=== PATIENT | female | born 1935 | race Caucasian/White ===

== ENCOUNTER 2016-10-02 20:40 | Inpatient (IN) | payer OTHER ==
[2016-10-02 20:48] VITALS: BMI 27.4
[2016-10-02] MEDS ORDERED: PIPERACILLIN/TAZOB 3.375 GM 3.375 GM in DEXTROSE 5%-WATER - 50 ML IVPB ONE (22:12)
[2016-10-02] MEDS ORDERED: VANCOMYCIN 1,000 MG in DEXTROSE 5%-WATER - 250 ML IVPB ONE (22:16)
--- NOTE | 2016-10-02 22:18 | PDOC ---
History of Present Illness - General History Source: Patient Exam Limitations: No Limitations - History of Present Illness Initial Comments: 10/02/16 22:21 The patient is a 80 year old female with a significant past medical history of diabetes and hypertension who presents to the ED with complaint of right toe injury for 2 weeks. The patient reports she hit her right second toe against the bathroom door 2 weeks ago. Patient reports edema, redness, and blackened- skin at the right second toe. Denies toe pain or loss in sensation. Patient also reports an ongoing rash on the left side of the back of her head. Patient reports thickening of skin associated with the rash. Denies fever or chills. Denies chest pain or shortness of breath. Denies focal numbness, weakness, or tingling. Denies any other symptoms. <Tj Alex - Last Filed: 10/02/16 22:21> <Alison Ray - Last Filed: 10/03/16 01:58> - General Chief Complaint: Injury Stated Complaint: RIGHT FOOT INJURY Time Seen by Provider: 10/02/16 21:22 Past History <Tj Alex - Last Filed: 10/02/16 22:21> - Past Medical History Diabetes: Yes (IDDM) HTN: Yes Suicide Attempt (Hx): No - Psycho/Social/Smoking Cessation Hx Anxiety: No Suicidal Ideation: No Smoking History: Never smoked Hx Alcohol Use: No Drug/Substance Use Hx: No Substance Use Type: None <Alison Ray - Last Filed: 10/03/16 01:58> - Past Medical History Allergies/Adverse Reactions: Allergies Allergy/AdvReac Type Severity Reaction Status Date / Time No Known Allergies Allergy Verified 10/02/16 20:47 Home Medications: Ambulatory Orders Atenolol 0 PO DAILY 10/03/16 Hydrochlorothiazide 0 PO DAILY 10/03/16 Insulin (LOG) Aspart [NovoLOG -] 0 unit SQ DAILY 10/03/16 Insulin Glargine,Hum.rec.anlog [Lantus (nf)] 0 units SQ HS 10/03/16 Norvasc - PO DAILY 10/03/16 Review of Systems - Review of Systems Able to Perform ROS?: Yes Comments:: 10/02/16 22:21 CONSTITUTIONAL: Absent: fever, chills, diaphoresis, generalized weakness, malaise, loss of appetite HEENT: Absent: rhinorrhea, nasal congestion, throat pain, throat swelling, difficulty swallowing, mouth swelling, ear pain, eye pain, visual Changes CARDIOVASCULAR: Absent: chest pain, syncope, palpitations, irregular heart rate, lightheadedness , peripheral edema RESPIRATORY: Absent: cough, shortness of breath, dyspnea with exertion, orthopnea, wheezing, stridor, hemoptysis GASTROINTESTINAL: Absent: abdominal pain, abdominal distension, nausea, vomiting, diarrhea, constipation, melena, hematochezia GENITOURINARY: Absent: dysuria, frequency, urgency, hesitancy, hematuria, flank pain, genital pain MUSCULOSKELETAL: + right toe injury SKIN: + rash Absent:, itching, pallor HEMATOLOGIC/IMMUNOLOGIC: Absent: easy bleeding, easy bruising, lymphadenopathy, frequent infections ENDOCRINE: Absent: unexplained weight gain, unexplained weight loss, heat intolerance, cold intolerance NEUROLOGIC: Absent: headache, focal weakness or paresthesias, dizziness, unsteady gait, seizure, mental status changes, bladder or bowel incontinence PSYCHIATRIC: Absent: anxiety, depression, suicidal or homicidal ideation, hallucinations. All Other Systems: Reviewed and Negative <Tj Alex - Last Filed: 10/02/16 22:21> *Physical Exam - Vital Signs Last Vital Signs Temp Pulse Resp BP Pulse Ox 97.7 F 67 18 136/71 99 10/02/16 20:43 10/02/16 20:43 10/02/16 20:43 10/02/16 20:43 10/02/16 20:43 - Physical Exam Comments: 10/02/16 22:21 GENERAL: Well developed, well nourished. Awake and alert. No acute distress. HEENT: Normocephalic, atraumatic. PERRLA, EOMI. No conjunctival pallor. Sclera are non- icteric. Moist mucous membranes. Oropharynx is clear. NECK: Supple. Full ROM. No JVD. Carotid pulses 2+ and symmetric, without bruits. No thyromegaly. NCo lymphadenopathy. CARDIOVASCULAR: Regular rate and rhythm. No murmurs, rubs, or gallops. Distal pulses are 2+ and symmetric. PULMONARY: No evidence of respiratory distress. Lungs clear to auscultation bilaterally. No wheezing, rales or rhonchi. ABDOMINAL: Soft. Non-tender. Non-distended. No rebound or guarding. No organomegaly. Normoactive bowel sounds. MUSCULOSKELETAL Normal range of motion at all joints. No bony deformities or tenderness. No CVA tenderness. EXTREMITIES: + right second toe diabetic foot. No cyanosis. No clubbing. No calf tenderness. SKIN: + Left postauricular area, nape of neck, back of ear fungal rash. Warm and dry. Normal capillary refill. No jaundice. NEUROLOGICAL: Alert, awake, appropriate. Cranial nerves 2-12 intact. No deficits to light touch and temperature in face, upper extremities and lower extremities. No motor deficits in the in face, upper extremities and lower extremities. Normoreflexic in the upper and lower extremities. Normal speech. Toes are down- going bilaterally. Gait is normal without ataxia. PSYCHIATRIC: Cooperative. Good eye contact. Appropriate mood and affect. <Tj Alex - Last Filed: 10/02/16 22:21> - Vital Signs Last Vital Signs Temp Pulse Resp BP Pulse Ox 97.7 F 67 18 136/71 99 10/02/16 20:43 10/02/16 20:43 10/02/16 20:43 10/02/16 20:43 10/02/16 20:43 <Alison Ray - Last Filed: 10/03/16 01:58> ED Treatment Course - LABORATORY CBC & Chemistry Diagram: 10/02/16 23:29 10/02/16 23:29 <Alison Ray - Last Filed: 10/03/16 01:58> Medical Decision Making - Medical Decision Making 10/02/16 22:45 Pt comes with DM and diabetic toe infection on the right 2nd toe. Pt also has fungal looking rash behind the left ear and left neck area that has been ongoing for the past year. Pt doesn't recall going to a salon or a nail parlor in the past year. She is not sure where she could have picked up the infection. The post-auricular area and neck appear lichinified/thickened pinkish skin with no hair growth in the area of rash. The area is pruritic, as pt is itching it regularly. It is possible that after pt banged her right toe en route to the bathroom 2 weeks ago, she scratched her neck/ear area and then manipulated her foot. She may have a fungal infection of the toe. This needs to be explored while she is admitted. Pt has a fungal toenail infection of her 1st and 2nd toes on the rigt foot. Pt will have basic labs and CRP and sed rate done. I will treat with zosyn nd vanco and oral ketoconazole. Dr. Vogel is aware that the patient is being admitted. I will admit the paient to Dr. Badillo, who is covering today. 10/03/16 01:57 Pt was given abx. Her blood sugar is elevated and she will be treated with NSS IV, as her BUN/Cr are sightly elevated and she will be given subcutaneous insulin <Alison Ray - Last Filed: 10/03/16 01:58> *DC/Admit/Observation/Transfer - Attestations Scribe Attestion: 10/02/16 22:21 Documentation prepared by Tj Alex, acting as medical technologist prn for Alison Ray MD <Tj Alex - Last Filed: 10/02/16 22:21> - Discharge Dispostion Admit: Yes <Alison Ray - Last Filed: 10/03/16 01:58> Diagnosis at time of Disposition: Diabetic foot infection, Toe osteomyelitis, right, Fungal infection of the scalp - Referrals
[2016-10-02] MEDS ORDERED: VANCOMYCIN 1 GRAM (PRE-DOCKED) 250 ML IVPB ONE (23:29)
[2016-10-03 00:01] LABS: BASOPHIL 0.7 % (0-2.0); MCH 28.8 pg (25.7-33.7); MCHC 32.5 g/dl (32.0-36.0); MEAN CELL VOLUME 88.8 fl (80-96); MEAN PLT VOLUME 9.3 fl (7.5-11.1); NEUTROPHILS 57.5 % (42.8-82.8); PLATELET COUNT 169 K/MM3 (134-434); RDW 13.6 % (11.6-15.6); WHITE BLOOD COUNT 6.6 K/mm3 (4.0-10.0)
[2016-10-03 00:22] LABS: ALBUMIN 3.3 g/dl (3.4-5.0); BILIRUBIN,TOTAL 0.4 mg/dL (0.2-1.0); CALCIUM 9.2 mg/dL (8.5-10.1); COCKROFT - GAULT 32.1215; CREATININE 1.5 mg/dL (0.55-1.02); TOT PROT 7.5 g/dl (6.4-8.2)
[2016-10-03] MEDS ORDERED: SODIUM CHLORIDE 0.9% 500 ML INFUS.BAG IV ONE (00:43)
[2016-10-03] MEDS ORDERED: INSULIN REGULAR HUMAN 100 UNITS/ML *VIAL SQ ONE (00:46)
[2016-10-03] MEDS ORDERED: PIPERACILLIN/TAZOB 3.375 GM 50 ML IVPB ONE (01:13)
[2016-10-03] MEDS ORDERED: ACETAMINOPHEN 325 MG TABLET (FP) PO PRN (07:36)
[2016-10-03] MEDS ORDERED: BACITRACIN 30 GM TUBE TOPICAL OINTMENT TP SCH (10:00)
[2016-10-03] MEDS: ASPIRIN COATED 81 MG TABLET.EC PO SCH (11:11)
[2016-10-03] MEDS: HEPARIN NA (PORCINE) 5,000 UNITS/ML 1ML VIAL SQ SCH ×2 (11:11→22:21)
[2016-10-03] MEDS: ATENOLOL 25 MG TABLET (FP) PO SCH (11:12)
[2016-10-03] MEDS: amLODIPine BESYLATE 2.5 MG TABLET (FP) PO SCH (11:12)
[2016-10-03] MEDS ORDERED: ATENOLOL 25 MG TABLET (FP) ONE (11:13)
[2016-10-03] MEDS ORDERED: amLODIPine BESYLATE 5 MG TABLET (FP) ONE (11:13)
[2016-10-03] MEDS ORDERED: HEPARIN NA (PORCINE) 5,000 UNITS/ML 1ML VIAL ONE (11:14)
[2016-10-03] MEDS ORDERED: ASPIRIN COATED 81 MG TABLET.EC ONE (11:14)
--- NOTE | 2016-10-03 11:51 | HP ---
Admitting History and Physical - Primary Care Physician PCP: Natalee Jo - Admission Chief Complaint: RIGHT TOE ULCER WITH CELLULITIS History of Present Illness: The patient is a 80 year old female with a significant past medical history of diabetes and hypertension who presents to the ED with complaint of right toe injury for 2 weeks. The patient reports she hit her right second toe against the bathroom door 2 weeks ago. Patient reports edema, redness, and blackened- skin at the right second toe. Denies toe pain or loss in sensation. Patient also reports an ongoing rash on the left side of the back of her head. Patient reports thickening of skin associated with the rash. Denies fever or chills. Denies chest pain or shortness of breath. Denies focal numbness, weakness, or tingling. Denies any other symptoms. History Source: Patient, Medical Record, Transfer Record Limitations to Obtaining History: Language Barrier - Smoking History Smoking history: Never smoked - Alcohol/Substance Use Hx Alcohol Use: No Home Medications - Allergies Allergies/Adverse Reactions: Allergies Allergy/AdvReac Type Severity Reaction Status Date / Time No Known Allergies Allergy Verified 10/02/16 20:47 - Home Medications Home Medications: Ambulatory Orders Atenolol 0 PO DAILY 10/03/16 Hydrochlorothiazide 0 PO DAILY 10/03/16 Insulin (LOG) Aspart [NovoLOG -] 0 unit SQ DAILY 10/03/16 Insulin Glargine,Hum.rec.anlog [Lantus (nf)] 0 units SQ HS 10/03/16 Norvasc - PO DAILY 10/03/16 Review of Systems - Review of Systems Constitutional: reports: No Symptoms Eyes: reports: No Symptoms HENT: reports: No Symptoms Neck: reports: No Symptoms Cardiovascular: reports: No Symptoms Respiratory: reports: No Symptoms Gastrointestinal: reports: No Symptoms Genitourinary: reports: No Symptoms Breasts: reports: No Symptoms Reported Musculoskeletal: reports: Extremity Pain Integumentary: reports: Blister, Erythema, Wound Neurological: reports: Pre-Existing Deficit Endocrine: reports: No Symptoms Hematology/Lymphatic: reports: No Symptoms Psychiatric: reports: No Symptoms Physical Examination Vital Signs: Vital Signs Temperature 97.8 F 10/03/16 03:40 Pulse Rate 60 10/03/16 03:40 Respiratory Rate 16 10/03/16 03:40 Blood Pressure 143/57 10/03/16 03:40 O2 Sat by Pulse Oximetry (%) 97 10/03/16 03:40 Constitutional: Yes: Mild Distress Eyes: Yes: WNL HENT: Yes: WNL Neck: Yes: WNL Cardiovascular: Yes: WNL Respiratory: Yes: WNL Gastrointestinal: Yes: WNL Musculoskeletal: Yes: Muscle Weakness Extremities: Yes: WNL Edema: No Peripheral Pulses WNL: Yes Integumentary: Yes: Erythema, Pressure Ulcer, Skin Tear, Venous Stasis Changes Wound/Incision: Yes: Open to air Neurological: Yes: Pre-Existing Deficit ...Motor Strength: LLE, RLE Psychiatric: Yes: WNL Problem List - Problems (1) Diabetic foot infection Code(s): E11.69 - TYPE 2 DIABETES MELLITUS WITH OTHER SPECIFIED COMPLICATION L08.9 - LOCAL INFECTION OF THE SKIN AND SUBCUTANEOUS TISSUE, UNSP (2) Diabetes type 2, controlled Code(s): E11.9 - TYPE 2 DIABETES MELLITUS WITHOUT COMPLICATIONS Qualifiers: Diabetes mellitus complication status: with skin complications Diabetes mellitus complication detail: with foot ulcer Assessment/Plan IV ABX ID AND SURGERY EVAL DM CONTROL ADA
[2016-10-03] MEDS ORDERED: HEMOQUE TEST 1 EACH EACH ONE (13:06)
[2016-10-03] MEDS: INSULIN SLIDING SCALE (NOVOLOG) 1 VIAL SQ SCH ×3 (14:48→22:23)
--- NOTE | 2016-10-03 14:52 | PN ---
Progress Note (short form) - Note Progress Note: ID consult dictated imp/reccd 80 year old female with DM for last 15 years, admitted with swollen second toe she banged it about two weeks ago, the toenail fell off she has been using peroxide to treat the toe no fevers or chills no recent admissions she has good pulses in the feet cellulitis of the second toe - xray no osteo suggest podiatry evaluation iv cefazolin f/u esr/crp Problem List - Problems (1) Diabetic foot infection Code(s): E11.69 - TYPE 2 DIABETES MELLITUS WITH OTHER SPECIFIED COMPLICATION L08.9 - LOCAL INFECTION OF THE SKIN AND SUBCUTANEOUS TISSUE, UNSP (2) Renal insufficiency Code(s): N28.9 - DISORDER OF KIDNEY AND URETER, UNSPECIFIED
[2016-10-03] MEDS ORDERED: CEFAZOLIN 2 GM in DEXTROSE 5%-WATER - 50 ML IVPB SCH (15:00)
--- NOTE | 2016-10-03 15:33 | EKG ---
Test Reason : Blood Pressure : / mmHG Vent. Rate : 061 BPM Atrial Rate : 061 BPM P-R Int : 184 ms QRS Dur : 104 ms QT Int : 428 ms P-R-T Axes : 056 -39 039 degrees QTc Int : 430 ms NORMAL SINUS RHYTHM LEFT AXIS DEVIATION INFERIOR INFARCT , AGE UNDETERMINED ANTEROSEPTAL INFARCT , AGE UNDETERMINED ABNORMAL ECG NO PREVIOUS ECGS AVAILABLE CLINICAL CORRELATION IS RECOMMENDED BASELINE ARTIFACT Confirmed by CASH NOVAK, CARLOS ([id number]) on 10/03/2016 3:33:19 PM Referred By: Confirmed By:CARLOS CASTREJON MD
[2016-10-03] MEDS: BACITRACIN 30 GM TUBE TOPICAL OINTMENT TP SCH (16:25)
--- NOTE | 2016-10-03 16:41 | CONS ---
DATE OF CONSULTATION: DATE OF DICTATION: 10/03/2016 REQUESTED BY: Aram Badillo MD This is an 81-year-old woman with a history of diabetes for the last 15 years. Two weeks ago, she thinks she stubbed her toe in the bathroom when she slipped and fell. Subsequently, the toenail fell off. She was treated the area with peroxide. She has not seen a doctor for this. Yesterday, she went to see her sister. Her niece looked at the foot. The toe was swollen and she brought her to the emergency room. She has no fevers or chills. She, otherwise, feels well. She has no chest pain, she has no shortness of breath. She has no known drug allergies. MEDICATIONS AN OUTPATIENT: Atenolol, hydrochlorothiazide, insulin, and Norvasc. PAST MEDICAL HISTORY: Hypertension and diabetes. There is no history of coronary artery disease. SURGICAL HISTORY: Right total knee repair done a year ago as well as she has had several operations on her ovaries in the past. FAMILY HISTORY: Noncontributory. SOCIAL HISTORY: She lives alone. She had 1 child who has predeceased her. REVIEW OF SYSTEMS: Negative for chest pain, abdominal pain, nausea, vomiting, diarrhea, or dysuria. PHYSICAL EXAMINATION: Vital Signs: Temperature is 97.8, pulse is 75, blood pressure 145/80, respiratory rate is 20. She is saturating 100% on room air. HEENT: She is normocephalic. Her eyes are anicteric. Neck: Supple. Lungs: Clear to auscultation. Heart: Regular rate and rhythm. Abdomen: Soft, nontender. Extremities: She has 2+ bilateral dorsalis pedis pulses of the right foot, 2nd toe. She has some diffuse erythema of the toe with some crusting at the site of the toenail. LABORATORIES: White count of 6.6, hemoglobin 13.7, platelets are 169. BUN is 44, creatinine 1.5, glucose of 311. SUMMARY: 1. This is an 80-year-old woman with diabetes with a cellulitis of the 2nd toe of her right foot. I would recommend Podiatry consultation, as she appears to have good pulses in her feet and her feet are warm. I would treat her at this time with cefazolin. Plain x-rays negative for osteomyelitis. If she fails to improve, would consider MRI. Would follow up sedimentation rate and CRP. Would await evaluation by Podiatry. 2. Renal insufficiency, most likely secondary to diabetes. We will adjust her antibiotics accordingly. RADHAMES HERMAN M.D. [id number]
--- NOTE | 2016-10-03 20:56 | CONSULT ---
Consult - Alcohol/Substance Use Hx Alcohol Use: No - Smoking History Smoking history: Never smoked Home Medications - Allergies Allergies/Adverse Reactions: Allergies Allergy/AdvReac Type Severity Reaction Status Date / Time No Known Allergies Allergy Verified 10/02/16 20:47 - Home Medications Home Medications: Ambulatory Orders Atenolol 0 PO DAILY 10/03/16 Hydrochlorothiazide 0 PO DAILY 10/03/16 Insulin (LOG) Aspart [NovoLOG -] 0 unit SQ DAILY 10/03/16 Insulin Glargine,Hum.rec.anlog [Lantus (nf)] 0 units SQ HS 10/03/16 Norvasc - PO DAILY 10/03/16 Physical Exam Vital Signs: Vital Signs Temperature 98.4 F 10/03/16 14:54 Pulse Rate 68 10/03/16 14:54 Respiratory Rate 20 10/03/16 14:54 Blood Pressure 127/64 10/03/16 14:54 O2 Sat by Pulse Oximetry (%) 100 10/03/16 14:54 Assessment/Plan Vascular Surgery The patient is a 80 year old female with a significant past medical history of diabetes and hypertension who presents to the ED with complaint of right toe injury for 2 weeks. The patient reports she hit her right second toe against the bathroom door 2 weeks ago. Patient reports edema, redness, and blackened- skin at the right second toe. Denies toe pain or loss in sensation. Patient also reports an ongoing rash on the left side of the back of her head. Patient reports thickening of skin associated with the rash. Denies fever or chills. Denies chest pain or shortness of breath. Denies focal numbness, weakness, or tingling. Denies any other symptoms. PE Head - NC/AT Lung - cTA Heart - RRR abd - soft,nt,nd ext - right second toe erythema. Not painful to touch. Injury to toe nail. Palpable DP and PT pulses. warm to touch. A/P S/P fall in bathroom and injury to right second toe. circulation is intact with good pulses. Bacitracin to toe daily Harinder Garner DO
[2016-10-03] MEDS ORDERED: KETOCONAZOLE 200 MG TABLET PO ONE (22:13)
[2016-10-03] MEDS: CEFAZOLIN 2 GM in DEXTROSE 5%-WATER - 50 ML IVPB SCH (22:21)
[2016-10-03] MEDS: INSULIN DETEMIR 100 UNITS/ML MDV SQ SCH (22:22)
--- NOTE | 2016-10-03 22:31 | CONSULT ---
Consult Consult Specialty:: ENDOCRINE Referred by:: DR.RABADI RODGERS Reason for Consultation:: DIABETES MELLITUS - History of Present Illness Chief Complaint: HIGH SUGAR LEVELS History of Present Illness: 80 year old female with a significant past medical history of diabetes and hypertension who presents to the ED with complaint of right toe injury for 2 weeks. The patient reports she hit her right second toe against the bathroom door 2 weeks ago. Patient reports edema, redness, and blackened-skin at the right second toe. Denies toe pain or loss in sensation. Patient also reports higher blood sugars,denies cp,nausea or vomiting - History Source History Provided By: Patient - Alcohol/Substance Use Hx Alcohol Use: No - Smoking History Smoking history: Never smoked Home Medications - Allergies Allergies/Adverse Reactions: Allergies Allergy/AdvReac Type Severity Reaction Status Date / Time No Known Allergies Allergy Verified 10/02/16 20:47 - Home Medications Home Medications: Ambulatory Orders Atenolol 0 PO DAILY 10/03/16 Hydrochlorothiazide 0 PO DAILY 10/03/16 Insulin (LOG) Aspart [NovoLOG -] 0 unit SQ DAILY 10/03/16 Insulin Glargine,Hum.rec.anlog [Lantus (nf)] 0 units SQ HS 10/03/16 Norvasc - PO DAILY 10/03/16 Review of Systems - Review of Systems Constitutional: reports: Lethargy, Weakness Eyes: reports: No Symptoms HENT: reports: No Symptoms Neck: reports: No Symptoms Cardiovascular: reports: No Symptoms Respiratory: reports: SOB on Exertion Gastrointestinal: reports: Constipation Genitourinary: reports: No Symptoms Breasts: reports: No Symptoms Reported Musculoskeletal: reports: No Symptoms, Muscle Pain, Muscle Cramps, Muscle Weakness Endocrine: reports: Unexplained Weight Loss Physical Exam Vital Signs: Vital Signs Temperature 98.4 F 10/03/16 14:54 Pulse Rate 68 10/03/16 14:54 Respiratory Rate 20 10/03/16 14:54 Blood Pressure 127/64 10/03/16 14:54 O2 Sat by Pulse Oximetry (%) 100 10/03/16 14:54 Constitutional: Yes: Anxious Eyes: Yes: EOM Intact HENT: Yes: Normocephalic Neck: Yes: Trachea Midline Cardiovascular: Yes: Regular Rate and Rhythm Respiratory: Yes: CTA Bilaterally Gastrointestinal: Yes: Normal Bowel Sounds ...Rectal Exam: Yes: Deferred Renal/: Yes: WNL Breast(s): Yes: WNL Musculoskeletal: Yes: Joint Swelling, Muscle Pain Extremities: Yes: WNL Edema: No Peripheral Pulses WNL: Yes Integumentary: Yes: Pressure Ulcer, Onychomycosis Wound/Incision: Yes: Dressing Dry and Intact, Dressing Removed Neurological: Yes: Alert, Oriented Problem List - Problems (1) Diabetes type 2, controlled Code(s): E11.9 - TYPE 2 DIABETES MELLITUS WITHOUT COMPLICATIONS Qualifiers: Diabetes mellitus complication status: with skin complications (2) Fungal infection of the scalp Code(s): 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 (3) Renal insufficiency Code(s): N28.9 - DISORDER OF KIDNEY AND URETER, UNSPECIFIED (4) Toe osteomyelitis, right Code(s): M86.9 - OSTEOMYELITIS, UNSPECIFIED (5) Type 2 diabetes mellitus with other diabetic neurological complication Code(s): E11.49 - TYPE 2 DIABETES W OTH DIABETIC NEUROLOGICAL COMPLICATION Assessment/Plan Current Active Problems Diabetes type 2, controlled (Acute) Diabetic foot infection (Acute) Fungal infection of the scalp (Acute) Renal insufficiency (Acute) Toe osteomyelitis, right (Acute) Abnormal Lab Results 10/02/16 10/02/16 10/02/16 23:29 23:29 23:29 Monocytes % 10.5 H ESR 53 H Chloride 97 L BUN 44 H D Creatinine 1.5 H D Random Glucose 311 H* D Albumin 3.3 L Laboratory Results - last 24 hr 10/02/16 10/02/16 10/02/16 23:29 23:29 23:29 WBC 6.6 RBC 4.75 Hgb 13.7 Hct 42.2 MCV 88.8 MCHC 32.5 RDW 13.6 Plt Count 169 MPV 9.3 Neutrophils % 57.5 Lymphocytes % 28.3 Monocytes % 10.5 H Eosinophils % 3.0 Basophils % 0.7 ESR 53 H Sodium Potassium Chloride Carbon Dioxide Anion Gap BUN Creatinine Creat Clearance w eGFR POC Glucometer Random Glucose Calcium Total Bilirubin AST ALT Alkaline Phosphatase C-Reactive Protein < 0.3 Total Protein Albumin 10/02/16 10/03/16 10/03/16 23:29 04:06 13:10 WBC RBC Hgb Hct MCV MCHC RDW Plt Count MPV Neutrophils % Lymphocytes % Monocytes % Eosinophils % Basophils % ESR Sodium 137 Potassium 4.0 Chloride 97 L Carbon Dioxide 30 Anion Gap 10 BUN 44 H D Creatinine 1.5 H D Creat Clearance w eGFR 33.41 POC Glucometer [phone] Random Glucose 311 H* D Calcium 9.2 Total Bilirubin 0.4 AST 20 D ALT 21 D Alkaline Phosphatase 67 C-Reactive Protein Total Protein 7.5 Albumin 3.3 L 10/03/16 10/03/16 16:34 21:05 WBC RBC Hgb Hct MCV MCHC RDW Plt Count MPV Neutrophils % Lymphocytes % Monocytes % Eosinophils % Basophils % ESR Sodium Potassium Chloride Carbon Dioxide Anion Gap BUN Creatinine Creat Clearance w eGFR POC Glucometer 202 290 Random Glucose Calcium Total Bilirubin AST ALT Alkaline Phosphatase C-Reactive Protein Total Protein Albumin plan: bgm conroll with novolog scale levemir 15 units am levemir 10 units hs check hba1c surgical consult vascular evaluation
[2016-10-04] MEDS: INSULIN DETEMIR 100 UNITS/ML MDV SQ SCH ×2 (06:30→22:12)
[2016-10-04] MEDS: INSULIN SLIDING SCALE (NOVOLOG) 1 VIAL SQ SCH ×5 (06:30→22:13)
[2016-10-04] MEDS ORDERED: INSULIN (NOVOLOG) ASPART 100 UNITS/ML 10ML VIAL ONE ×2 (06:43→11:25)
[2016-10-04 07:51] LABS: ALBUMIN 3.4 g/dl (3.4-5.0); BILIRUBIN,TOTAL 0.6 mg/dL (0.2-1.0); CALCIUM 8.9 mg/dL (8.5-10.1); TOT PROT 7.4 g/dl (6.4-8.2)
[2016-10-04 07:55] LABS: COCKROFT - GAULT 43.809; CREATININE 1.1 mg/dL (0.55-1.02)
[2016-10-04 08:10] LABS: MCH 29.4 pg (25.7-33.7); MCHC 33.3 g/dl (32.0-36.0); MEAN CELL VOLUME 88.4 fl (80-96); MEAN PLT VOLUME 9.1 fl (7.5-11.1); PLATELET COUNT 160 K/MM3 (134-434); RDW 13.9 % (11.6-15.6); WHITE BLOOD COUNT 5.9 K/mm3 (4.0-10.0)
[2016-10-04] MEDS ORDERED: PT OWN MED DRAWER 7, Y5N ONE (09:43)
[2016-10-04] MEDS: ASPIRIN COATED 81 MG TABLET.EC PO SCH (09:47)
[2016-10-04] MEDS: ATENOLOL 25 MG TABLET (FP) PO SCH (09:47)
[2016-10-04] MEDS: amLODIPine BESYLATE 2.5 MG TABLET (FP) PO SCH (09:47)
[2016-10-04] MEDS: HEPARIN NA (PORCINE) 5,000 UNITS/ML 1ML VIAL SQ SCH ×2 (09:47→22:09)
[2016-10-04] MEDS: BACITRACIN 30 GM TUBE TOPICAL OINTMENT TP SCH (09:47)
[2016-10-04 10:19] LABS: ERYTHROCYTE SEDIMENTATION RATE 50 mm/hr (0-30)
--- NOTE | 2016-10-04 10:23 | PN ---
Progress Note, Physician Chief Complaint: patient in bed no distress on iv abx - Current Medication List Current Medications: Active Medications Acetaminophen (Tylenol -) 650 mg PO Q6H PRN PRN Reason: FEVER OR PAIN Last Admin: 10/04/16 06:35 Dose: 650 mg Amlodipine Besylate (Norvasc -) 2.5 mg PO DAILY [facility] Last Admin: 10/04/16 09:47 Dose: 2.5 mg Aspirin (Ecotrin -) 81 mg PO DAILY [facility] Last Admin: 10/04/16 09:47 Dose: 81 mg Atenolol (Tenormin -) 25 mg PO DAILY [facility] Last Admin: 10/04/16 09:47 Dose: 25 mg Atorvastatin Calcium (Lipitor -) 20 mg PO [facility] Bacitracin (Bacitracin -) 1 applic TP DAILY [facility] Last Admin: 10/04/16 09:47 Dose: 1 applic Heparin Sodium (Porcine) (Heparin -) 5,000 unit SQ BID [facility] Last Admin: 10/04/16 09:47 Dose: 5,000 unit Cefazolin Sodium 2 gm/ (Dextrose) 50 mls @ 100 mls/hr IVPB BID [facility] Last Admin: 10/03/16 22:21 Dose: 100 mls/hr Insulin Aspart (Novolog Vial Sliding Scale -) 1 vial SQ ACHS [facility] PRN Reason: Protocol Last Admin: 10/04/16 06:30 Dose: Not Given Insulin Detemir (Levemir Vial) 10 units SQ HS [facility] Last Admin: 10/03/16 22:22 Dose: 10 units Insulin Detemir (Levemir Vial) 15 units SQ AM [facility] Last Admin: 10/04/16 06:30 Dose: Not Given - Objective Vital Signs: Vital Signs Temperature 98.1 F 10/04/16 06:50 Pulse Rate 64 10/04/16 06:50 Respiratory Rate 18 10/04/16 06:50 Blood Pressure 136/70 10/04/16 06:50 O2 Sat by Pulse Oximetry (%) 100 10/03/16 21:00 Constitutional: Yes: Calm Cardiovascular: Yes: Regular Rate and Rhythm, S1, S2 Respiratory: Yes: CTA Bilaterally Gastrointestinal: Yes: Soft Extremities: Yes: Erythema (of right second toe with), Other (no tenderness) Edema: No Labs: CBC, BMP 10/04/16 06:00 10/04/16 06:00 Problem List - Problems (1) Cellulitis of right toe Assessment/Plan: iv abx podiatry eval appreicate vascular consult bacitracin Code(s): L03.031 - CELLULITIS OF RIGHT TOE (2) Diabetes type 2, uncontrolled Assessment/Plan: hga1c 8.9 bid levemir appreicate end consult Code(s): E11.65 - TYPE 2 DIABETES MELLITUS WITH HYPERGLYCEMIA (3) Hyperlipidemia Assessment/Plan: elevated CHol and LDL start statin 20mg qhs Code(s): E78.5 - HYPERLIPIDEMIA, UNSPECIFIED (4) HTN (hypertension) Assessment/Plan: stable same meds Code(s): I10 - ESSENTIAL (PRIMARY) HYPERTENSION
--- NOTE | 2016-10-04 10:44 | CONSULT ---
Consult - text type - Consultation Consultation Note: Podiatry Consultation: 80 year old pleasant F presents for redness/swelling to the R 2nd toe after trauma sustained from a fall approximately 2 weeks ago. Denies pain to the toe. Denies F/V/N/C/SOB/CP. Thinks she notes loosening of the toe nail. Currently afebrile, VSS. PMHx: DM, HTN Meds: noted in chart ALL: NKMA TJ: Pedal pulses palpable, TG wnl, CFT brisk to all toes bilaterally. There is a R 2nd toe distal tuft pre-trophic lesion upon debridement yielding fibrogranular superficial wound at the distal tuft of the toe, no deep probing, mild periwound erythema, no purulence, no fluctuance, no tenderness to palpation, no streaking cellulitis, no signs of active infection. On orthopedic exam, there is a semi-reducible hammer toe deformity at the 2nd MTPJ and 2nd PIPJ of the toe. R foot XR: no evidence of fracture or osteomyelitis Imp: 80 year old DM F with R 2nd toe hammer toe deformity and pressure ulcer 1. Excisional debridement performed at bedside, yielding no deep wound, only subcutaneous wound. 2. Local wound care with bacitracin. 3. Will apply crest padding offloading pad to R foot. 4. Recommend surgical shoe for support R foot. 5. Will heal fine, however in the future I discussed with patient performing hammer toe repair to surgically offload the area. Will f/u with me in [facility] next Tuesday. Thank you for the courtesy of this consultation. Asif Thrasher DPM
[2016-10-04] MEDS: CEFAZOLIN 2 GM in DEXTROSE 5%-WATER - 50 ML IVPB SCH ×2 (11:20→22:09)
--- NOTE | 2016-10-04 12:06 | PN ---
Progress Note (short form) - Note Progress Note: toe improved, seen by podiatry-debridement performed-no purulence noted Vital Signs Period Temp Pulse Resp BP Sys/Herrera Pulse Ox Last 24 Hr 97.9 F-98.4 F 64-75 18-20 127-145/61-80 100-100 cor-rrr lungs clear abd soft,nt ext less erythema of the toe- tip has been debrided CBC, BMP 10/04/16 06:00 10/04/16 06:00 Laboratory Tests 10/02/16 23:29 C-Reactive Protein < 0.3 a/p cellulitis of the second toe - xray no osteo podiatry eval noted , continue cefazolin, improvement noted renak function improved Problem List - Problems (1) Diabetic foot infection Code(s): E11.69 - TYPE 2 DIABETES MELLITUS WITH OTHER SPECIFIED COMPLICATION L08.9 - LOCAL INFECTION OF THE SKIN AND SUBCUTANEOUS TISSUE, UNSP (2) Renal insufficiency Code(s): N28.9 - DISORDER OF KIDNEY AND URETER, UNSPECIFIED
[2016-10-04] MEDS ORDERED: ATORVASTATIN CA 20 MG TABLET (FP) PO SCH (22:00)
[2016-10-05] MEDS: INSULIN DETEMIR 100 UNITS/ML MDV SQ SCH (06:10)
[2016-10-05] MEDS: INSULIN SLIDING SCALE (NOVOLOG) 1 VIAL SQ SCH ×2 (06:13→11:35)
[2016-10-05] MEDS: CEFAZOLIN 2 GM in DEXTROSE 5%-WATER - 50 ML IVPB SCH (09:34)
[2016-10-05] MEDS ORDERED: PT OWN MED DRAWER 7, Y5N ONE (09:37)
[2016-10-05] MEDS: ASPIRIN COATED 81 MG TABLET.EC PO SCH (09:37)
[2016-10-05] MEDS: amLODIPine BESYLATE 2.5 MG TABLET (FP) PO SCH (09:37)
[2016-10-05] MEDS: ATENOLOL 25 MG TABLET (FP) PO SCH (09:37)
[2016-10-05] MEDS: BACITRACIN 30 GM TUBE TOPICAL OINTMENT TP SCH (09:37)
[2016-10-05] MEDS: HEPARIN NA (PORCINE) 5,000 UNITS/ML 1ML VIAL SQ SCH (09:38)
--- NOTE | 2016-10-05 10:08 | DS ---
Physical Examination Vital Signs: Vital Signs Temperature 98.5 F 10/05/16 06:22 Pulse Rate 68 10/05/16 06:22 Respiratory Rate 18 10/05/16 06:22 Blood Pressure 138/66 10/05/16 06:22 O2 Sat by Pulse Oximetry (%) 98 10/04/16 21:00 Constitutional: Yes: Calm Neck: Yes: Trachea Midline Cardiovascular: Yes: Regular Rate and Rhythm, S1, S2 Respiratory: Yes: CTA Bilaterally Gastrointestinal: Yes: Normal Bowel Sounds, Soft Extremities: Yes: Other (right 2 toe less erythema, swelling is reduced as well no tendereness) Neurological: Yes: Alert, Oriented Labs: CBC, BMP 10/04/16 06:00 10/04/16 06:00 Discharge Summary Reason For Visit: TINEA CAPITSIS, DIABETIC FOOT ULCER Current Active Problems Cellulitis of right toe (Acute) Diabetes type 2, controlled (Acute) Diabetes type 2, uncontrolled (Acute) Diabetic foot infection (Acute) Fungal infection of the scalp (Acute) HTN (hypertension) (Acute) Hyperlipidemia (Acute) Renal insufficiency (Acute) Toe osteomyelitis, right (Acute) Type 2 diabetes mellitus with other diabetic neurological complication (Acute) Hospital Course: CP: Natalee Jo - Admission Chief Complaint: RIGHT TOE ULCER WITH CELLULITIS History of Present Illness: The patient is a 80 year old female with a significant past medical history of diabetes and hypertension who presents to the ED with complaint of right toe injury for 2 weeks. The patient reports she hit her right second toe against the bathroom door 2 weeks ago. Patient reports edema, redness, and blackened- skin at the right second toe. Denies toe pain or loss in sensation. Patient also reports an ongoing rash on the left side of the back of her head. Patient reports thickening of skin associated with the rash. Denies fever or chills. Denies chest pain or shortness of breath. Denies focal numbness, weakness, or tingling. Denies any other symptoms. History Source: Patient, Medical Record, Transfer Record Limitations to Obtaining History: Language [facility] hospital course: patient got xray of foot no osteo seen got iv cefazolin improved change to po meds keflex 500mg bid for 5 days seen by podiatry follow up with director of officiating in [place] or with dr zhao next week at [facility] seen by endocrine dose adjsuted and also added statin for elevated LDL Condition: Improved - Instructions Referrals: Adithya Vogel MD [Primary Care Provider] - Disposition: HOME - Home Medications Comprehensive Discharge Medication List: Ambulatory Orders Atenolol 0 PO DAILY 10/03/16 Hydrochlorothiazide 0 PO DAILY 10/03/16 Insulin (LOG) Aspart [NovoLOG -] 0 unit SQ DAILY 10/03/16 Insulin Glargine,Hum.rec.anlog [Lantus (nf)] 0 units SQ HS 10/03/16 Norvasc - PO DAILY 10/03/16
--- NOTE | 2016-10-05 10:54 | EKG ---
Test Reason : Blood Pressure : / mmHG Vent. Rate : 061 BPM Atrial Rate : 061 BPM P-R Int : 190 ms QRS Dur : 100 ms QT Int : 440 ms P-R-T Axes : -10 -23 043 degrees QTc Int : 442 ms NORMAL SINUS RHYTHM POSSIBLE INFERIOR INFARCT (CITED ON OR BEFORE 02-OCT-2016) ANTEROSEPTAL INFARCT (CITED ON OR BEFORE 02-OCT-2016) ABNORMAL ECG WHEN COMPARED WITH ECG OF 02-OCT-2016 23:41, NO SIGNIFICANT CHANGE WAS FOUND Confirmed by MARCELLE GARCIA MD ([id number]) on 10/05/2016 10:53:34 AM Referred By: Confirmed By:MARCELLE GARCIA MD
[2016-10-05] MEDS ORDERED: INSULIN (NOVOLOG) ASPART 100 UNITS/ML 10ML VIAL ONE (11:35)
[2016-10-05 14:12] VITALS: BP 139/69; PULSE 62; TEMP 97.8
--- NOTE | 2016-10-05 14:15 | PN ---
Progress Note (short form) - Note Progress Note: toe improved Vital Signs Period Temp Pulse Resp BP Sys/Herrera Pulse Ox Last 24 Hr 97.5 F-98.5 F 59-76 18-18 127-146/59-72 98 cor-rrr lungs clear abd soft,nt ext +hammertoe , less erythema CBC, BMP 10/04/16 06:00 10/04/16 06:00 Laboratory Tests 10/02/16 23:29 C-Reactive Protein < 0.3 a/p cellulitis of the second toe - xray no osteo podiatry eval noted , for f/u next week with peanut sorter, switch to po keflex for 7 days Problem List - Problems (1) Diabetic foot infection Code(s): E11.69 - TYPE 2 DIABETES MELLITUS WITH OTHER SPECIFIED COMPLICATION L08.9 - LOCAL INFECTION OF THE SKIN AND SUBCUTANEOUS TISSUE, UNSP (2) Renal insufficiency Code(s): N28.9 - DISORDER OF KIDNEY AND URETER, UNSPECIFIED
== END 2016-10-05 17:22 | disposition home or self-care (01) | DRG 624 ==
LOC: JER 20:40 → JERBED 23:46 → J5S 10-03 14:33
PROVIDERS: ADMIT Family Medicine; ATTEND Family Medicine
PROC: 0JBQ0ZZ Excision of Right Foot Subcutaneous Tissue and Fascia, Open Approach (ICD-10-PCS; principal; 2016-10-04)
DX: E11.621 Type 2 diabetes mellitus with foot ulcer (principal); E11.49 Type 2 diabetes mellitus with other diabetic neurological complication; L03.031 Cellulitis of right toe; L97.519 Non-pressure chronic ulcer of other part of right foot with unspecified severity; E11.65 Type 2 diabetes mellitus with hyperglycemia; Z79.4 Long term (current) use of insulin; I10 Essential (primary) hypertension; B35.0 Tinea barbae and tinea capitis; M20.41 Other hammer toe(s) (acquired), right foot; N28.9 Disorder of kidney and ureter, unspecified
CPT/HCPCS: 36415; 71020-TC; 73660-TC; 80053; 80061; 83036; 83721; 85025; 85027; 85651; 86140; 93005; 93010; 97116-GP; 97161-GP; 99283-25; J1644

== ENCOUNTER 2017-10-03 14:14 | Inpatient (IN) | payer OTHER ==
[2017-10-03 14:23] VITALS: BMI 27.4
--- NOTE | 2017-10-03 14:24 | PDOC ---
History of Present Illness - General Chief Complaint: Pain Stated Complaint: SENT BY PCP Time Seen by Provider: 10/03/17 14:22 History Source: Patient Exam Limitations: No Limitations - History of Present Illness Initial Comments: 10/03/17 14:22 I have performed a brief in-person evaluation of this patient. The patient presents with a chief complaint of: right leg pain x 1 week, with radiation into right hip. Seen in the emergency room for the same yesterday. Sent to ed by pmd for admission. Pertinent physical exam findings: moaning in pain in triage unlabored breath + right lower leg edema I have ordered the following: analgesia, labs The patient will proceed to the ED for further evaluation Past History - Past Medical History Allergies/Adverse Reactions: Allergies Allergy/AdvReac Type Severity Reaction Status Date / Time No Known Allergies Allergy Verified 10/02/17 13:07 Home Medications: Ambulatory Orders Insulin (LOG) Aspart [NovoLOG -] 0 unit SQ DAILY 10/03/16 Amlodipine Besylate [Norvasc -] 2.5 mg PO DAILY #30 tablet MDD 1 10/05/16 Atenolol [Tenormin -] 25 mg PO DAILY #30 tablet MDD 1 10/05/16 Atorvastatin Ca [Lipitor] 20 mg PO HS #30 tablet MDD 1 10/05/16 Bacitracin - [Bacitracin Topical Ointment -] 1 applic TP DAILY #1 tube MDD 1 Insulin (Levemir) [Levemir Vial] 15 units SQ AM #100 ml MDD 15 unit 10/05/16 Ibuprofen [Motrin -] 400 mg PO TID PRN #21 tablet 10/02/17 COPD: No Diabetes: Yes (IDDM) HTN: Yes - Surgical History Orthopedic Surgery: Yes (R knee replacement) - Suicide/Smoking/Psychosocial Hx Smoking History: Never smoked Have you smoked in the past 12 months: No Hx Alcohol Use: No Drug/Substance Use Hx: No Substance Use Type: None
[2017-10-03 16:12] LABS: BASO % 0.4 % (0-2.0); EOS % 1.6 % (0-4.5); HEMATOCRIT 44.2 % (32.4-45.2); HEMOGLOBIN 14.5 GM/dL (10.7-15.3); INR 0.97 (0.82-1.09); LYMPH % 24.5 % (8-40); MCH 28.8 pg (25.7-33.7); MCHC 32.9 g/dl (32.0-36.0); MEAN CELL VOLUME 87.6 fl (80-96); MEAN PLT VOLUME 8.6 fl (7.5-11.1); MONO % 8.5 % (3.8-10.2); PLATELET COUNT 190 K/MM3 (134-434); RBC 5.04 M/mm3 (3.60-5.2); RDW 14.3 % (11.6-15.6); WHITE BLOOD COUNT 8.2 K/mm3 (4.0-10.0)
[2017-10-03 16:14] LABS: ACTIVATED PTT 34.9 SECONDS (26.9-34.4)
[2017-10-03 16:26] LABS: ALBUMIN 3.1 g/dl (3.4-5.0); ANION GAP 4 (8-16); BILIRUBIN,TOTAL 0.8 mg/dL (0.2-1.0); BLOOD UREA NITROGEN 28 mg/dL (7-18); CHLORIDE 104 mmol/L (98-107); CO2 31 mmol/L (21-32); CREATININE 1.3 mg/dL (0.55-1.02); GLUCOSE,RANDOM 248 mg/dL (74-106); POTASSIUM 4.4 mmol/L (3.5-5.1); SGOT/AST 63 U/L (15-37); SODIUM 139 mmol/L (136-145); TOT PROT 7.7 g/dl (6.4-8.2)
--- NOTE | 2017-10-03 16:37 | PDOC ---
History of Present Illness - General Chief Complaint: Pain Stated Complaint: SENT BY PCP Time Seen by Provider: 10/03/17 14:22 History Source: Patient Exam Limitations: No Limitations - History of Present Illness Initial Comments: 10/03/17 18:24 81Fwith pmh of diabetes and hypertension returning to ED for worsening complaints of right hip and thigh pain which she describes as warm aching sensation. Patient seen [address] Vogel who sent the patient for further evaluation. Patient states had swelling prior to the pain and went to see her vascular doctor, Dr. Garner who prescribed her Lasix for 2 days and then 2 days later developed the pain. Patient went to [facility] where she states had x-rays and lab work and was admitted secondary to uncontrollable pain. Patient was discharged home 4 days ago and pain continues despite taking Ultram at night and Tylenol. Patient denies hx of arthritis but does have history of right total knee replacement. Patient denies difficulty with ambulation, skin discoloration, swelling, or radiation of pain to her abdomen or back. right leg pain x 1 week, with radiation into right hip. Seen in the emergency room for the same yesterday. Sent to ed by pmd for admission. 10/03/17 18:26 Past History - Past Medical History Allergies/Adverse Reactions: Allergies Allergy/AdvReac Type Severity Reaction Status Date / Time No Known Allergies Allergy Verified 10/03/17 14:23 Home Medications: Ambulatory Orders Insulin (LOG) Aspart [NovoLOG -] 0 unit SQ DAILY 10/03/16 Amlodipine Besylate [Norvasc -] 2.5 mg PO DAILY #30 tablet MDD 1 10/05/16 Atenolol [Tenormin -] 25 mg PO DAILY #30 tablet MDD 1 10/05/16 Atorvastatin Ca [Lipitor] 20 mg PO HS #30 tablet MDD 1 10/05/16 Bacitracin - [Bacitracin Topical Ointment -] 1 applic TP DAILY #1 tube MDD 1 Insulin (Levemir) [Levemir Vial] 15 units SQ AM #100 ml MDD 15 unit 10/05/16 Ibuprofen [Motrin -] 400 mg PO TID PRN #21 tablet 10/02/17 COPD: No Diabetes: Yes (IDDM) HTN: Yes Hypercholesterolemia: Yes - Surgical History Orthopedic Surgery: Yes (R knee replacement) - Suicide/Smoking/Psychosocial Hx Smoking History: Never smoked Have you smoked in the past 12 months: No Information on smoking cessation initiated: No Hx Alcohol Use: No Drug/Substance Use Hx: No Substance Use Type: None Review of Systems - Review of Systems Able to Perform ROS?: Yes Is the patient limited Bahraini proficient: No Constitutional: No: Symptoms Reported HEENTM: No: Symptoms Reported Respiratory: No: Symptoms reported Cardiac (ROS): No: Symptoms Reported ABD/GI: No: Symptoms Reported : No: Symptoms Reported Musculoskeletal: Yes: See HPI Integumentary: No: Symptoms Reported All Other Systems: Reviewed and Negative *Physical Exam - Vital Signs Last Vital Signs Temp Pulse Resp BP Pulse Ox 97.8 F 79 22 151/79 100 10/03/17 14:21 10/03/17 14:21 10/03/17 14:21 10/03/17 14:21 10/03/17 14:21 - Physical Exam General Appearance: Yes: Nourished, Appropriately Dressed. No: Apparent Distress HEENT: positive: EOMI, TIM, Normal ENT Inspection Respiratory/Chest: positive: Lungs Clear, Normal Breath Sounds. negative: Chest Tender, Respiratory Distress Cardiovascular: positive: Regular Rhythm, Regular Rate, S1, S2 Gastrointestinal/Abdominal: positive: Normal Bowel Sounds, Flat, Soft. negative : Tender Extremity: positive: Other (tenderness along right hip and sacrum.). negative: Pedal Edema ED Treatment Course - LABORATORY CBC & Chemistry Diagram: 10/03/17 15:30 10/03/17 15:30 - ADDITIONAL ORDERS Additional order review: 10/03/17 15:30 RBC 5.04 MCV 87.6 MCHC 32.9 RDW 14.3 MPV 8.6 Neutrophils % 65.0 Lymphocytes % 24.5 Monocytes % 8.5 Eosinophils % 1.6 Basophils % 0.4 Medical Decision Making - Medical Decision Making 10/03/17 18:34 81f with uncontrolled diabetes presents with tender right hip. All labs within normal limits. Will admit to hospitalist for further evaluation *DC/Admit/Observation/Transfer Diagnosis at time of Disposition: Intractable neuropathic pain of right lower extremity - Discharge Dispostion Condition at time of disposition: Stable Decision to Admit order: Yes - Referrals Referrals: ON STAFF,NOT [Primary Care Provider] - - Patient Instructions - Post Discharge Activity
--- NOTE | 2017-10-03 16:40 | PDOC ---
Rapid Medical Evaluation Chief Complaint: Pain Time Seen by Provider: 10/03/17 14:22 Medical Evaluation: Allergies Allergy/AdvReac Type Severity Reaction Status Date / Time No Known Allergies Allergy Verified 10/03/17 14:23 Vital Signs Temp Pulse Resp BP Pulse Ox 97.8 F 79 22 151/79 100 10/03/17 14:21 10/03/17 14:21 10/03/17 14:21 10/03/17 14:21 10/03/17 14:21 10/03/17 16:40 have performed a brief in-person evaluation of this patient. The patient presents with a chief complaint of: right leg pain x 1 week, with radiation into right hip. Seen in the emergency room for the same yesterday. Sent to ed by pmd for admission. Pertinent physical exam findings: moaning in pain in triage unlabored breath + right lower leg edema I have ordered the following: analgesia, labs The patient will proceed to the ED for further evaluation Discharge Disposition - Discharge Dispostion Last Admission D/C Date: 10/05/16 - Referrals Referrals: ON STAFF,NOT [Primary Care Provider] - - Patient Instructions - Post Discharge Activity
[2017-10-03 16:51] LABS: ALK PHOS 92 U/L (45-117)
[2017-10-03] MEDS ORDERED: morphine CARPU-JECT 4 MG/1 ML DISP.SYRIN IVPUSH ONE (16:54)
[2017-10-03] MEDS ORDERED: morphine SULFATE 4 MG/ML VIAL ONE (16:57)
[2017-10-03 17:13] LABS: SGPT/ALT 142 U/L (12-78)
--- NOTE | 2017-10-03 18:44 | PDOC ---
Attending Attestation - Resident Resident Name: ElenaAlex - ED Attending Attestation I have performed the following: I have examined & evaluated the patient, The case was reviewed & discussed with the resident, I agree w/resident's findings & plan, Exceptions are as noted - HPI HPI: 10/03/17 18:43 81 F with pmh of diabetes and hypertension presenting to ED with RLE pain. Pt with severe pain in R thigh radiating from hip. Also complaining of pain in her lower pelvis. Pt was seen here yesterday and had negative imaging, including ultrasound, doppler, and CT scan. Pt had improved pain s/p tramadol and was DC' ed home. However, after discharge, pt reports recurrence of pain. Pt was subsequently sent back to ED by Dr. Vogel for admission. - Physicial Exam PE: 10/03/17 18:46 "GENERAL: Awake, alert, and fully oriented, in no acute distress. HEAD: No signs of trauma EYES: PERRLA, EOMI, sclera anicteric, conjunctiva clear ENT: Auricles normal inspection, hearing grossly normal, nares patent, oropharynx clear without exudates. Moist mucosa NECK: Nontender, no stepoffs, Normal ROM, supple, no lymphadenopathy, JVD, or masses LUNGS: Breath sounds equal, clear to auscultation bilaterally. No wheezes, and no crackles HEART: Regular rate and rhythm, normal S1 and S2, no murmurs, rubs or gallops ABDOMEN: Soft, nontender, normoactive bowel sounds. No guarding, no rebound. No masses EXTREMITIES: + R hip and thigh tenderness, limited ROM 2/2 pain, no deformity NEUROLOGICAL: Cranial nerves II through XII intact. 5/5 strength and sensation in all extremities, Normal speech, normal gait, normal cerebellar function SKIN: Warm, Dry, normal turgor, no rashes or lesions noted. " - Medical Decision Making 10/03/17 18:46 81 F sent in for intractable RLE pain. - Labs - MRI R hip - Admit for pain control
[2017-10-03] MEDS ORDERED: morphine CARPU-JECT 2 MG/1 ML DISP.SYRIN ONE (20:16)
[2017-10-03] MEDS ORDERED: morphine CARPU-JECT 2 MG/1 ML DISP.SYRIN IVPUSH ONE (20:19)
--- NOTE | 2017-10-03 20:39 | HP ---
Admitting History and Physical - Primary Care Physician PCP: Monika Hampton - Admission History of Present Illness: 81 F with pmh of diabetes and hypertension presenting to ED with RLE pain. Pt with severe pain in R thigh radiating from hip. Also complaining of pain in her lower pelvis. Pt was seen here yesterday and had negative imaging, including ultrasound, doppler, and CT scan. Pt had improved pain s/p tramadol and was DC' ed home. However, after discharge, pt reports recurrence of pain. Pt was subsequently sent back to ED by Dr. Vogel for admission. - Past Medical History Cardiovascular: Yes: HTN Endocrine: Yes: Diabetes Mellitus - Smoking History Smoking history: Never smoked Have you smoked in the past 12 months: No - Alcohol/Substance Use Hx Alcohol Use: No Home Medications - Allergies Allergies/Adverse Reactions: Allergies Allergy/AdvReac Type Severity Reaction Status Date / Time No Known Allergies Allergy Verified 10/03/17 14:23 - Home Medications Home Medications: Ambulatory Orders Insulin (LOG) Aspart [NovoLOG -] 0 unit SQ DAILY 10/03/16 Atorvastatin Ca [Lipitor] 20 mg PO HS #30 tablet MDD 1 10/05/16 Bacitracin - [Bacitracin Topical Ointment -] 1 applic TP DAILY #1 tube MDD 1 Insulin (Levemir) [Levemir Vial] 15 units SQ AM #100 ml MDD 15 unit 10/05/16 Amlodipine Besylate [Norvasc -] 10 mg PO DAILY 10/04/17 Physical Examination Vital Signs: Vital Signs Temperature 98.2 F 10/03/17 17:10 Pulse Rate 76 10/03/17 19:48 Respiratory Rate 18 10/03/17 19:48 Blood Pressure 168/80 10/03/17 19:48 O2 Sat by Pulse Oximetry (%) 94 L 10/03/17 19:48 Constitutional: Yes: No Distress HENT: Yes: Atraumatic Neck: Yes: Supple Cardiovascular: Yes: Regular Rate and Rhythm Respiratory: Yes: CTA Bilaterally Gastrointestinal: Yes: Normal Bowel Sounds Extremities: Yes: WNL Neurological: Yes: Alert, Oriented Labs: CBC, BMP 10/03/17 15:30 10/03/17 15:30 Problem List - Problems (1) Intractable neuropathic pain of right lower extremity Assessment/Plan: prn pain meds neuro and ortho consult Code(s): G57.91 - UNSPECIFIED MONONEUROPATHY OF RIGHT LOWER LIMB (2) Diabetes type 2, controlled Assessment/Plan: on insulin stable Code(s): E11.9 - TYPE 2 DIABETES MELLITUS WITHOUT COMPLICATIONS (3) HTN (hypertension) Assessment/Plan: on meds stable Code(s): I10 - ESSENTIAL (PRIMARY) HYPERTENSION (4) Arthritis of right knee Assessment/Plan: had knee surgery in the past Code(s): M19.90 - UNSPECIFIED OSTEOARTHRITIS, UNSPECIFIED SITE Assessment/Plan Laboratory Tests 10/03/17 10/03/17 10/03/17 15:30 15:30 15:30 WBC 8.2 RBC 5.04 Hgb 14.5 Hct 44.2 MCV 87.6 MCH 28.8 MCHC 32.9 RDW 14.3 Plt Count 190 D MPV 8.6 Absolute Neuts (auto) 5.3 Neutrophils % 65.0 Lymphocytes % 24.5 Monocytes % 8.5 Eosinophils % 1.6 Basophils % 0.4 Nucleated RBC % 0 PT with INR 11.00 INR 0.97 PTT (Actin FS) 34.9 H Sodium 139 Potassium 4.4 Chloride 104 Carbon Dioxide 31 Anion Gap 4 L BUN 28 H Creatinine 1.3 H Creat Clearance w eGFR 39.31 Random Glucose 248 H Calcium 9.0 Total Bilirubin 0.8 D AST 63 H ALT 142 H Alkaline Phosphatase 92 Total Protein 7.7 Albumin 3.1 L Active Medications Generic Name Dose Route Start Last Admin Trade Name Freq PRN Reason Stop Dose Admin Acetaminophen 650 mg 10/03/17 23:11 10/04/17 08:40 Tylenol - PO 650 mg Q6H PRN Administration FEVER Amlodipine Besylate 2.5 mg 10/04/17 10:00 10/04/17 09:08 Norvasc - PO 2.5 mg DAILY MAHOGANY Administration Atenolol 25 mg 10/04/17 10:00 10/04/17 09:08 Tenormin - PO 25 mg DAILY MAHOGANY Administration Atorvastatin Calcium 20 mg 10/03/17 22:00 10/03/17 21:58 Lipitor - PO 20 mg HS MAHOGANY Administration Heparin Sodium (Porcine) 5,000 unit 10/03/17 22:00 10/04/17 09:08 Heparin - SQ 5,000 unit BID MAHOGANY Administration Insulin Aspart 1 vial 10/03/17 22:00 10/04/17 11:38 Novolog Vial Sliding Scale - SQ 2 units ACHS MAHOGANY Administration Protocol Insulin Detemir 15 units 10/04/17 07:00 10/04/17 06:21 Levemir Vial SQ 15 units AM MAHOGANY Administration Oxycodone HCl 10 mg 10/03/17 23:11 10/04/17 08:40 Roxicodone - PO 10 mg Q6H PRN Administration PAIN
[2017-10-03] MEDS: ATORVASTATIN CA 20 MG TABLET (FP) PO SCH (21:58)
[2017-10-03] MEDS: HEPARIN NA (PORCINE) 5,000 UNITS/ML 1ML VIAL SQ SCH (22:01)
[2017-10-03] MEDS: INSULIN SLIDING SCALE (NOVOLOG) 1 VIAL SQ SCH (22:02)
[2017-10-03] MEDS: oxyCODONE HCL 5 MG TABLET PO PRN (23:15)
[2017-10-03] MEDS: ACETAMINOPHEN 325 MG TABLET (FP) PO PRN (23:16)
[2017-10-04] MEDS ORDERED: INSULIN (LEVEMIR) 100 UNITS/ML UNITS SQ ONE (05:57)
[2017-10-04] MEDS: INSULIN SLIDING SCALE (NOVOLOG) 1 VIAL SQ SCH ×4 (06:21→22:20)
[2017-10-04] MEDS: INSULIN (LEVEMIR) 100 UNITS/ML UNITS SQ SCH (06:21)
[2017-10-04] MEDS: ACETAMINOPHEN 325 MG TABLET (FP) PO PRN ×2 (08:40→22:28)
[2017-10-04] MEDS: oxyCODONE HCL 5 MG TABLET PO PRN ×2 (08:40→22:37)
[2017-10-04] MEDS: amLODIPine BESYLATE 2.5 MG TABLET (FP) PO SCH (09:08)
[2017-10-04] MEDS: HEPARIN NA (PORCINE) 5,000 UNITS/ML 1ML VIAL SQ SCH ×2 (09:08→22:25)
[2017-10-04] MEDS: ATENOLOL 25 MG TABLET (FP) PO SCH (09:08)
[2017-10-04] MEDS ORDERED: INSULIN (NOVOLOG) ASPART 100 UNITS/ML 10ML VIAL ONE (11:40)
--- NOTE | 2017-10-04 14:09 | PN ---
Progress Note, Physician - Current Medication List Current Medications: Active Medications Acetaminophen (Tylenol -) 650 mg PO Q6H PRN PRN Reason: FEVER Last Admin: 10/04/17 08:40 Dose: 650 mg Amlodipine Besylate (Norvasc -) 2.5 mg PO DAILY [facility] Last Admin: 10/04/17 09:08 Dose: 2.5 mg Atenolol (Tenormin -) 25 mg PO DAILY [facility] Last Admin: 10/04/17 09:08 Dose: 25 mg Atorvastatin Calcium (Lipitor -) 20 mg PO HS [facility] Last Admin: 10/03/17 21:58 Dose: 20 mg Heparin Sodium (Porcine) (Heparin -) 5,000 unit SQ BID [facility] Last Admin: 10/04/17 09:08 Dose: 5,000 unit Insulin Aspart (Novolog Vial Sliding Scale -) 1 vial SQ ACHS [facility]; Protocol Last Admin: 10/04/17 11:38 Dose: 2 units Insulin Detemir (Levemir Vial) 15 units SQ AM [facility] Last Admin: 10/04/17 06:21 Dose: 15 units Oxycodone HCl (Roxicodone -) 10 mg PO Q6H PRN PRN Reason: PAIN Last Admin: 10/04/17 08:40 Dose: 10 mg - Objective Vital Signs: Vital Signs Temperature 97.7 F 10/04/17 10:00 Pulse Rate 86 10/04/17 10:00 Respiratory Rate 18 10/04/17 10:00 Blood Pressure 135/86 10/04/17 10:00 O2 Sat by Pulse Oximetry (%) 94 L 10/04/17 10:00 Constitutional: Yes: No Distress HENT: Yes: Atraumatic Cardiovascular: Yes: Regular Rate and Rhythm Respiratory: Yes: CTA Bilaterally Gastrointestinal: Yes: Normal Bowel Sounds Neurological: Yes: Alert, Oriented Labs: CBC, BMP 10/03/17 15:30 10/03/17 15:30 INR, PTT INR 0.97 (0.82-1.09) 10/03/17 15:30 Problem List - Problems (1) Intractable neuropathic pain of right lower extremity Assessment/Plan: prn pain meds pain management neuro consult R knee pain will get mri also will get ortho consult Code(s): G57.91 - UNSPECIFIED MONONEUROPATHY OF RIGHT LOWER LIMB (2) Diabetes type 2, controlled Assessment/Plan: on insulin, bgms stable Code(s): E11.9 - TYPE 2 DIABETES MELLITUS WITHOUT COMPLICATIONS (3) HTN (hypertension) Assessment/Plan: on meds stable Code(s): I10 - ESSENTIAL (PRIMARY) HYPERTENSION Assessment/Plan Dr Sweet covering until tuesday
[2017-10-04] MEDS: ATORVASTATIN CA 20 MG TABLET (FP) PO SCH (22:25)
[2017-10-05] MEDS: INSULIN (LEVEMIR) 100 UNITS/ML UNITS SQ SCH (06:22)
[2017-10-05] MEDS: INSULIN SLIDING SCALE (NOVOLOG) 1 VIAL SQ SCH ×4 (06:23→21:53)
[2017-10-05] MEDS: ACETAMINOPHEN 325 MG TABLET (FP) PO PRN (07:10)
[2017-10-05] MEDS: oxyCODONE HCL 5 MG TABLET PO PRN ×2 (07:10→23:16)
[2017-10-05] MEDS ORDERED: PT OWN MED DRAWER 7, Y5N ONE (10:09)
[2017-10-05] MEDS: HEPARIN NA (PORCINE) 5,000 UNITS/ML 1ML VIAL SQ SCH ×2 (10:20→21:55)
[2017-10-05] MEDS: ATENOLOL 25 MG TABLET (FP) PO SCH (10:20)
[2017-10-05] MEDS: amLODIPine BESYLATE 2.5 MG TABLET (FP) PO SCH (10:20)
--- NOTE | 2017-10-05 10:44 | CONSULT ---
Consult - text type - Consultation Consultation Note: FULL CONSULT DICTATED IMP: RLE PAIN OF NO SPECIFIC ETIOLOGY, NO OBJECTIVE FINDINGS PLAN: PLAIN XRAYS RIGHT HIP/PELVIS TO ASSESS AMOUNT OF DJD, XRAYS LS SPINE, ESR AND CRP FOR POSSIBLE LOW LEVEL INFECTION, NSAIDS
--- NOTE | 2017-10-05 12:14 | CONS ---
DATE OF CONSULTATION: 10/05/2017 Patient is an 81-year-old female, past medical history significant for diabetes and hypertension, complaining of 2-week history of atraumatic right lower extremity pain from the hip to the knee. Denies any fever or chills. Patient is status post right total knee replacement 2 years ago by another physician. Patient states that prior to 2 weeks ago, she was walking with no pain, just woke up and started having pain. She denies any fever or chills. No redness, swelling, or ecchymosis. PHYSICAL EXAMINATION: Patient is lying comfortably in bed. Range of motion in bed is full of her hip, knee, ankle, and toes. She can straight-leg raise. No increased pain with internal or external rotation, flexion and extension of the hip. She has a well-healed midline surgical incision over the right knee. No effusion in the knee. No erythema, ecchymosis, swelling throughout the entire lower extremity. Calf is soft, nontender. She does have 2+ pulses distally, brisk capillary refill, and good motion throughout. I got her up to stand. She was in pain when she was ambulating, but she was able to be weightbearing as tolerated. She had no tenderness in the midline. Paraspinally, she has negative scoliosis plus , spots. Negative femoral stretch test and [id number] sign. There were no plain x-rays that were performed. There was an MRI which showed some arthritis of the hip and some findings around the knee, but no plain films were performed. Same thing with the CAT scan, which again did not show any acute fractures around the knee. IMPRESSION: Right lower extremity pain of nonspecific etiology. No evidence of infection, his white count is normal, but I will order an ESR and CRP, which are further markers for infection as patient is a diabetic. I will order plain films of the knee, hip and lumbar spine to evaluate the bony architecture and the total knee replacement and to assess the amount of DJD in the hip. In the interim, patient could be placed on some analgesics and some anti-inflammatories, and we will see how she does. DOMINGA TRENT M.D. [id number]
[2017-10-05] MEDS ORDERED: BUPIVACAINE HCL/PF 0.25% (2.5MG/ML) 10 ML VIAL IM ONE (20:00)
[2017-10-05] MEDS ORDERED: TRIAMCINOLONE ACET 40MG/1ML VIAL IM ONE (20:00)
[2017-10-05] MEDS ORDERED: BUPIVACAINE HCL/PF (5 MG/ML) 30 ML VIAL IJ ONE ×2 (20:30)
--- NOTE | 2017-10-05 20:46 | CONSULT ---
Consult Consult Specialty:: Pain management - History of Present Illness Chief Complaint: Rt leg pain History of Present Illness: 81 yr old female with Rt hip and Rt knee pain difficulty in ambulation. Pain 10/02 Orthopedic consultation appreciated. - History Source History Provided By: Patient Limitations to Obtaining History: No Limitations - Past Medical History Cardio/Vascular: Yes: HTN Endocrine: Yes: Diabetes Mellitus - Alcohol/Substance Use Hx Alcohol Use: No - Smoking History Smoking history: Never smoked Have you smoked in the past 12 months: No Home Medications - Allergies Allergies/Adverse Reactions: Allergies Allergy/AdvReac Type Severity Reaction Status Date / Time No Known Allergies Allergy Verified 10/03/17 14:23 - Home Medications Home Medications: Ambulatory Orders Insulin (LOG) Aspart [NovoLOG -] 0 unit SQ DAILY 10/03/16 Atorvastatin Ca [Lipitor] 20 mg PO HS #30 tablet MDD 1 10/05/16 Bacitracin - [Bacitracin Topical Ointment -] 1 applic TP DAILY #1 tube MDD 1 Insulin (Levemir) [Levemir Vial] 15 units SQ AM #100 ml MDD 15 unit 10/05/16 Amlodipine Besylate [Norvasc -] 10 mg PO DAILY 10/04/17 Review of Systems - Review of Systems Constitutional: reports: No Symptoms Eyes: reports: No Symptoms HENT: reports: No Symptoms Neck: reports: No Symptoms Cardiovascular: reports: No Symptoms Respiratory: reports: No Symptoms Gastrointestinal: reports: No Symptoms Genitourinary: reports: No Symptoms Neurological: reports: No Symptoms Pain Intensity: 6 Physical Exam Vital Signs: Vital Signs Temperature 98.8 F 10/05/17 16:30 Pulse Rate 71 10/05/17 16:30 Respiratory Rate 18 10/05/17 16:30 Blood Pressure 159/85 10/05/17 16:30 O2 Sat by Pulse Oximetry (%) 95 10/05/17 10:00 Constitutional: Yes: Well Nourished Eyes: Yes: WNL HENT: Yes: WNL Neck: Yes: WNL Extremities: Yes: Other (Rt Knee - Scar , Tenderness + ,Decrease ROM , Rt Hip - decrease ROM , Greater Trochanteric area tenderness +) ...Motor Strength: WNL Psychiatric: Yes: WNL Labs: CBC, BMP 10/03/17 15:30 10/03/17 15:30 Current Medications Generic Name Dose Route Start Last Admin Trade Name Freq PRN Reason Stop Dose Admin Acetaminophen 650 mg 10/03/17 23:11 10/05/17 07:10 Tylenol - PO 650 mg Q6H PRN Administration FEVER Amlodipine Besylate 2.5 mg 10/04/17 10:00 10/05/17 10:20 Norvasc - PO 2.5 mg DAILY MAHOGANY Administration Atenolol 25 mg 10/04/17 10:00 10/05/17 10:20 Tenormin - PO 25 mg DAILY MAHOGANY Administration Atorvastatin Calcium 20 mg 10/03/17 22:00 10/04/17 22:25 Lipitor - PO 20 mg HS MAHOGANY Administration Heparin Sodium (Porcine) 5,000 unit 10/03/17 22:00 10/05/17 10:20 Heparin - SQ 5,000 unit BID MAHOGANY Administration Insulin Aspart 1 vial 10/03/17 22:00 10/05/17 17:56 Novolog Vial Sliding Scale - SQ 6 units ACHS MAHOGANY Administration Protocol Insulin Detemir 15 units 10/04/17 07:00 10/05/17 06:22 Levemir Vial SQ Not Given AM [facility] Oxycodone HCl 10 mg 10/03/17 23:11 10/05/17 07:10 Roxicodone - PO 10 mg Q6H PRN Administration PAIN Imaging - Results X-ray: Report Reviewed Assessment/Plan Discussed in detail. Continue current care Rt Trochanteric bursa steroid injection. Physical therapy. Follow up with Ortho as out patient if no surgery indicated. Ambulation with Assitive device. Thank for your kind referral. Dr. Salas [phone].
[2017-10-05] MEDS: ATORVASTATIN CA 20 MG TABLET (FP) PO SCH (21:53)
--- NOTE | 2017-10-05 22:52 | PN ---
Progress Note, Physician - Current Medication List Current Medications: Active Medications Acetaminophen (Tylenol -) 650 mg PO Q6H PRN PRN Reason: FEVER Last Admin: 10/05/17 07:10 Dose: 650 mg Amlodipine Besylate (Norvasc -) 2.5 mg PO DAILY [facility] Last Admin: 10/05/17 10:20 Dose: 2.5 mg Atenolol (Tenormin -) 25 mg PO DAILY [facility] Last Admin: 10/05/17 10:20 Dose: 25 mg Atorvastatin Calcium (Lipitor -) 20 mg PO HS [facility] Last Admin: 10/05/17 21:53 Dose: 20 mg Heparin Sodium (Porcine) (Heparin -) 5,000 unit SQ BID [facility] Last Admin: 10/05/17 21:55 Dose: 5,000 unit Insulin Aspart (Novolog Vial Sliding Scale -) 1 vial SQ ACHS [facility]; Protocol Last Admin: 10/05/17 21:53 Dose: 4 units Insulin Detemir (Levemir Vial) 15 units SQ AM [facility] Last Admin: 10/05/17 06:22 Dose: Not Given Oxycodone HCl (Roxicodone -) 10 mg PO Q6H PRN PRN Reason: PAIN Last Admin: 10/05/17 07:10 Dose: 10 mg - Objective Vital Signs: Vital Signs Temperature 98.8 F 10/05/17 16:30 Pulse Rate 71 10/05/17 16:30 Respiratory Rate 18 10/05/17 16:30 Blood Pressure 159/85 10/05/17 16:30 O2 Sat by Pulse Oximetry (%) 95 10/05/17 10:00 Labs: CBC, BMP 10/03/17 15:30 10/03/17 15:30 INR, PTT INR 0.97 (0.82-1.09) 10/03/17 15:30
[2017-10-06] MEDS: INSULIN (LEVEMIR) 100 UNITS/ML UNITS SQ SCH (06:15)
[2017-10-06] MEDS: amLODIPine BESYLATE 2.5 MG TABLET (FP) PO SCH (09:00)
[2017-10-06] MEDS: HEPARIN NA (PORCINE) 5,000 UNITS/ML 1ML VIAL SQ SCH ×2 (09:00→21:40)
[2017-10-06] MEDS: ATENOLOL 25 MG TABLET (FP) PO SCH (09:00)
--- NOTE | 2017-10-06 10:17 | PN ---
Progress Note (short form) - Note Progress Note: Pt seen and examined. C/o pain right knee and leg, she is about 2 years s/p right TKR. PE Overall the pt looks ok, in NAD. She is able to ambulate, I saw her walk, FWB with walker, from the bed to the bathroom. Her right knee looks fine, no swelling, no erythema, not hot, not tender. The rest of the RLE also looks fine, no signs of acute trauma, NVI, good ROM with little pain at the right hip. Low back is mildly stiff but otherwise ok. Xrays Right leg and knee look nl, TKR prosthesis in a good position, no fractures. LB shows severe L4-L5-S1 OA, otherwise nl. Imp Right leg and knee strain, severe LS OA, no acute orthopedic pathology. Rec P.T., WBAT, no restrictions, no surgery needed. Can DC from an ortho pov, can do out pt P.T. and f/u if needed in 1 week
[2017-10-06] MEDS: INSULIN SLIDING SCALE (NOVOLOG) 1 VIAL SQ SCH ×4 (11:29→21:30)
[2017-10-06] MEDS: oxyCODONE HCL 5 MG TABLET PO PRN ×2 (14:02→19:53)
--- NOTE | 2017-10-06 14:57 | CON.NEURO ---
Consult Consult Specialty:: NEUROLOGY-JUSTINE NOVAK - History of Present Illness History of Present Illness: 81Fwith pmh of diabetes and hypertension returning to ED for worsening complaints of right hip and thigh pain which she describes as warm aching sensation. Patient seen [address] Vogel who sent the patient for further evaluation. She reports pain begins on medial aspect of right knee, radiates along lat aspect of thigh up to hip/inguinal region. She denies numbness/tingling in leg, no motor weakness, feels pain has improved after trochanteric bursa injection last night. Bewgan 2 weeks ago, intermittent, not worsened by truncal movements. Ortho/Pain consults noted. Patient states had swelling prior to the pain and went to see her vascular doctor, Dr. Garner who prescribed her Lasix for 2 days and then 2 days later developed the pain. Patient went to [facility] where she states had x-rays and lab work and was admitted secondary to uncontrollable pain. Patient states was discharged home 4 days prior to admission and pain continues despite taking Ultram at night and Tylenol. - Past Medical History Cardio/Vascular: Yes: HTN Endocrine: Yes: Diabetes Mellitus - Alcohol/Substance Use Hx Alcohol Use: No - Smoking History Smoking history: Never smoked Have you smoked in the past 12 months: No Home Medications - Allergies Allergies/Adverse Reactions: Allergies Allergy/AdvReac Type Severity Reaction Status Date / Time No Known Allergies Allergy Verified 10/03/17 14:23 - Home Medications Home Medications: Ambulatory Orders Insulin (LOG) Aspart [NovoLOG -] 0 unit SQ DAILY 10/03/16 Atorvastatin Ca [Lipitor] 20 mg PO HS #30 tablet MDD 1 10/05/16 Bacitracin - [Bacitracin Topical Ointment -] 1 applic TP DAILY #1 tube MDD 1 Insulin (Levemir) [Levemir Vial] 15 units SQ AM #100 ml MDD 15 unit 10/05/16 Amlodipine Besylate [Norvasc -] 10 mg PO DAILY 10/04/17 Physical Exam-Neuro Vital Signs: Vital Signs Temperature 98.8 F 10/06/17 14:39 Pulse Rate 73 10/06/17 14:39 Respiratory Rate 18 10/06/17 14:39 Blood Pressure 172/79 10/06/17 14:39 O2 Sat by Pulse Oximetry (%) 95 10/06/17 10:00 Labs: CBC, BMP 10/03/17 15:30 10/03/17 15:30 INR, PTT INR 0.97 (0.82-1.09) 10/03/17 15:30 - Neuro Exam DTR's: 1+ Left Bicep, 1+ Right Bicep, 1+ Left Tricep, 1+ Right Tricep, 1+ Left Brachioradialis, 1+ Right Brachioradialis, 1+ Left Achilles, 1+ Right Achilles Motor Strength: 5/5: Left Arm, Right Arm, Left Leg, Right Leg (No EHL weakness) Gait: Other (Antalgic) Assessment/Plan Likely right knee (genicular nerve) and trochanteric nerve bursa related pain, she has had relief with bursa injection. If pain recurs the other possibility, would consider,less likely, L4 root pain (but does not have typical features of this entity). Pls cont. current management, can see her as outpt. if needed. Thank you, Viviana Jimenez MD
[2017-10-06] MEDS ORDERED: INSULIN (NOVOLOG) ASPART 100 UNITS/ML 10ML VIAL ONE (20:34)
[2017-10-06] MEDS: ATORVASTATIN CA 20 MG TABLET (FP) PO SCH (21:34)
--- NOTE | 2017-10-06 22:28 | PN ---
Progress Note, Physician - Current Medication List Current Medications: Active Medications Acetaminophen (Tylenol -) 650 mg PO Q6H PRN PRN Reason: FEVER Last Admin: 10/05/17 07:10 Dose: 650 mg Amlodipine Besylate (Norvasc -) 2.5 mg PO DAILY [facility] Last Admin: 10/06/17 09:00 Dose: 2.5 mg Atenolol (Tenormin -) 25 mg PO DAILY [facility] Last Admin: 10/06/17 09:00 Dose: 25 mg Atorvastatin Calcium (Lipitor -) 20 mg PO HS [facility] Last Admin: 10/06/17 21:34 Dose: 20 mg Heparin Sodium (Porcine) (Heparin -) 5,000 unit SQ BID [facility] Last Admin: 10/06/17 21:40 Dose: 5,000 unit Insulin Aspart (Novolog Vial Sliding Scale -) 1 vial SQ ACHS [facility]; Protocol Last Admin: 10/06/17 21:30 Dose: 6 units Insulin Detemir (Levemir Vial) 15 units SQ AM [facility] Last Admin: 10/06/17 06:15 Dose: 15 units Oxycodone HCl (Roxicodone -) 10 mg PO Q6H PRN PRN Reason: PAIN Last Admin: 10/06/17 19:53 Dose: 10 mg - Objective Vital Signs: Vital Signs Temperature 98.0 F 10/06/17 17:33 Pulse Rate 69 10/06/17 17:33 Respiratory Rate 18 10/06/17 18:00 Blood Pressure 143/74 10/06/17 17:33 O2 Sat by Pulse Oximetry (%) 95 10/06/17 18:00 Labs: CBC, BMP 10/03/17 15:30 10/03/17 15:30 INR, PTT INR 0.97 (0.82-1.09) 10/03/17 15:30
[2017-10-06] MEDS ORDERED: amLODIPine BESYLATE 5 MG TABLET (FP) PO ONE (22:30)
[2017-10-07] MEDS: INSULIN (LEVEMIR) 100 UNITS/ML UNITS SQ SCH (06:15)
[2017-10-07] MEDS: INSULIN SLIDING SCALE (NOVOLOG) 1 VIAL SQ SCH ×4 (06:15→22:13)
[2017-10-07] MEDS: oxyCODONE HCL 5 MG TABLET PO PRN ×3 (06:30→17:58)
[2017-10-07] MEDS: amLODIPine BESYLATE 2.5 MG TABLET (FP) PO SCH (09:28)
[2017-10-07] MEDS: HEPARIN NA (PORCINE) 5,000 UNITS/ML 1ML VIAL SQ SCH ×2 (09:29→22:08)
[2017-10-07] MEDS: ATENOLOL 25 MG TABLET (FP) PO SCH (09:29)
--- NOTE | 2017-10-07 10:26 | PN ---
Progress Note (short form) - Note Progress Note: Ortho Pt seen and examined c/o pain in LS spine and right thigh, improved after injection PE- + paraspinals, decr rom LS spine, full rom hip/knee, calf soft, nt nvi a/p PT wbat pain control pain management/neuro f/u ok to d/c from ortho pov d/w Dr. Chavez
--- NOTE | 2017-10-07 14:30 | PN ---
Progress Note, Physician - Current Medication List Current Medications: Active Medications Acetaminophen (Tylenol -) 650 mg PO Q6H PRN PRN Reason: FEVER Last Admin: 10/05/17 07:10 Dose: 650 mg Amlodipine Besylate (Norvasc -) 2.5 mg PO DAILY [facility] Last Admin: 10/07/17 09:28 Dose: 2.5 mg Atenolol (Tenormin -) 25 mg PO DAILY [facility] Last Admin: 10/07/17 09:29 Dose: 25 mg Atorvastatin Calcium (Lipitor -) 20 mg PO HS [facility] Last Admin: 10/06/17 21:34 Dose: 20 mg Heparin Sodium (Porcine) (Heparin -) 5,000 unit SQ BID [facility] Last Admin: 10/07/17 09:29 Dose: 5,000 unit Insulin Aspart (Novolog Vial Sliding Scale -) 1 vial SQ ACHS [facility]; Protocol Last Admin: 10/07/17 13:14 Dose: 4 units Insulin Detemir (Levemir Vial) 15 units SQ AM [facility] Last Admin: 10/07/17 06:15 Dose: 15 units Oxycodone HCl (Roxicodone -) 10 mg PO Q6H PRN PRN Reason: PAIN LEVEL 5-10 Last Admin: 10/07/17 13:18 Dose: 10 mg - Objective Vital Signs: Vital Signs Temperature 98.1 F 10/07/17 10:00 Pulse Rate 88 10/07/17 10:00 Respiratory Rate 20 10/07/17 10:00 Blood Pressure 147/80 10/07/17 10:00 O2 Sat by Pulse Oximetry (%) 95 10/07/17 09:00 Constitutional: Yes: No Distress HENT: Yes: Atraumatic Neck: Yes: Supple Cardiovascular: Yes: Regular Rate and Rhythm Respiratory: Yes: CTA Bilaterally Gastrointestinal: Yes: Normal Bowel Sounds Extremities: Yes: WNL Neurological: Yes: Alert, Oriented Labs: CBC, BMP 10/03/17 15:30 10/03/17 15:30 INR, PTT INR 0.97 (0.82-1.09) 10/03/17 15:30 Problem List - Problems (1) Intractable neuropathic pain of right lower extremity Assessment/Plan: prn pain meds pain management got inj R hip by pain management ortho note reviewed Code(s): G57.91 - UNSPECIFIED MONONEUROPATHY OF RIGHT LOWER LIMB (2) Diabetes type 2, controlled Assessment/Plan: on insulin, bgms stable Code(s): E11.9 - TYPE 2 DIABETES MELLITUS WITHOUT COMPLICATIONS (3) HTN (hypertension) Assessment/Plan: on meds stable Code(s): I10 - ESSENTIAL (PRIMARY) HYPERTENSION Assessment/Plan d/w niece in detail who was present in the room will check cbc, cmp, ua/ucx
--- NOTE | 2017-10-07 19:54 | PN ---
Progress Note (short form) - Note Progress Note: 81 yr old female with with Rt Hip and Knee pain difficulty in ambulation Had Troch injection on right with some relief. There is variation of pain 3-10. Neurontin 100 mg PO tID Continue current care . Thank you very much. Dr. Salas [phone]
[2017-10-07] MEDS: GABAPENTIN 100 MG CAPSULE (FP) PO SCH (20:08)
[2017-10-07 20:45] LABS: BASO % 0.5 % (0-2.0); EOS % 0.5 % (0-4.5); HEMATOCRIT 40.4 % (32.4-45.2); HEMOGLOBIN 13.4 GM/dL (10.7-15.3); LYMPH % 15.2 % (8-40); MCH 28.9 pg (25.7-33.7); MCHC 33.1 g/dl (32.0-36.0); MEAN CELL VOLUME 87.3 fl (80-96); MEAN PLT VOLUME 8.9 fl (7.5-11.1); MONO % 11.3 % (3.8-10.2); NEUT % 72.5 % (42.8-82.8); PLATELET COUNT 218 K/MM3 (134-434); RBC 4.62 M/mm3 (3.60-5.2); RDW 14.4 % (11.6-15.6); WHITE BLOOD COUNT 9.2 K/mm3 (4.0-10.0)
[2017-10-07 21:24] LABS: CHLORIDE 101 mmol/L (98-107); POTASSIUM 4.5 mmol/L (3.5-5.1); SODIUM 139 mmol/L (136-145)
[2017-10-07 21:45] LABS: ALBUMIN 2.4 g/dl (3.4-5.0); ALK PHOS 84 U/L (45-117); ANION GAP 7 (8-16); BILIRUBIN,TOTAL 0.6 mg/dL (0.2-1.0); BLOOD UREA NITROGEN 30 mg/dL (7-18); CALCIUM 8.7 mg/dL (8.5-10.1); CO2 31 mmol/L (21-32); CREATININE 1.4 mg/dL (0.55-1.02); GLUCOSE,RANDOM 97 mg/dL (74-106); SGOT/AST 26 U/L (15-37); SGPT/ALT 41 U/L (12-78); TOT PROT 6.6 g/dl (6.4-8.2)
[2017-10-07] MEDS ORDERED: INSULIN (NOVOLOG) ASPART 100 UNITS/ML 10ML VIAL ONE (22:05)
[2017-10-07] MEDS: ATORVASTATIN CA 20 MG TABLET (FP) PO SCH (22:08)
[2017-10-08] MEDS: INSULIN (LEVEMIR) 100 UNITS/ML UNITS SQ SCH (06:09)
[2017-10-08] MEDS: INSULIN SLIDING SCALE (NOVOLOG) 1 VIAL SQ SCH ×4 (06:09→21:38)
[2017-10-08 08:54] LABS: URINE APPEARANCE SLCLOUDY; URINE BILIRUBIN NEGATIVE (<2.0 mg/dL); URINE COLOR YELLOW; URINE GLUCOSE (UA) 1+ (NEGATIVE); URINE KETONE NEGATIVE (NEGATIVE); URINE LEUK ESTERASE NEGATIVE (NEGATIVE); URINE NITRITE NEGATIVE (NEGATIVE)
[2017-10-08 09:15] LABS: URINE PROTEIN 3+ (NEGATIVE)
[2017-10-08 09:16] LABS: EPI CELLS RARE /HPF (FEW); URINE HYALINE CAST 3 /lpf
[2017-10-08] MEDS ORDERED: PT OWN MED DRAWER 7, Y5N ONE (09:41)
[2017-10-08] MEDS: oxyCODONE HCL 5 MG TABLET PO PRN (09:45)
[2017-10-08] MEDS: HEPARIN NA (PORCINE) 5,000 UNITS/ML 1ML VIAL SQ SCH ×3 (09:46→21:10)
[2017-10-08] MEDS: GABAPENTIN 100 MG CAPSULE (FP) PO SCH (09:46)
[2017-10-08] MEDS: ATENOLOL 25 MG TABLET (FP) PO SCH (09:47)
[2017-10-08] MEDS: amLODIPine BESYLATE 2.5 MG TABLET (FP) PO SCH (09:47)
--- NOTE | 2017-10-08 11:05 | PN ---
Progress Note (short form) - Note Progress Note: Pt seen and examined. She received a shot yesterday by pain mg't, I believe into the right hip bursa. She can ambulate, she just is in pain, and is stiff. NTD from an ortho pov. Can DC. P.T., WBAT, Pain Mg't
--- NOTE | 2017-10-08 12:57 | PN ---
Progress Note, Physician History of Present Illness: feeling gassy - Current Medication List Current Medications: Active Medications Acetaminophen (Tylenol -) 650 mg PO Q6H PRN PRN Reason: FEVER Last Admin: 10/05/17 07:10 Dose: 650 mg Amlodipine Besylate (Norvasc -) 2.5 mg PO DAILY [facility] Last Admin: 10/08/17 09:47 Dose: 2.5 mg Atenolol (Tenormin -) 25 mg PO DAILY [facility] Last Admin: 10/08/17 09:47 Dose: 25 mg Atorvastatin Calcium (Lipitor -) 20 mg PO HS [facility] Last Admin: 10/07/17 22:08 Dose: 20 mg Gabapentin (Neurontin -) 100 mg PO DAILY [facility] Last Admin: 10/08/17 09:46 Dose: 100 mg Heparin Sodium (Porcine) (Heparin -) 5,000 unit SQ BID [facility] Last Admin: 10/08/17 09:46 Dose: 5,000 unit Insulin Aspart (Novolog Vial Sliding Scale -) 1 vial SQ [facility]; Protocol Last Admin: 10/08/17 11:53 Dose: 2 units Insulin Detemir (Levemir Vial) 15 units SQ AM [facility] Last Admin: 10/08/17 06:09 Dose: 15 units Oxycodone HCl (Roxicodone -) 10 mg PO Q6H PRN PRN Reason: PAIN LEVEL 5-10 Last Admin: 10/08/17 09:45 Dose: 10 mg Simethicone (Mylicon -) 80 mg PO QID PRN PRN Reason: DYSPEPSIA - Objective Vital Signs: Vital Signs Temperature 98.4 F 10/08/17 09:42 Pulse Rate 74 10/08/17 09:42 Respiratory Rate 20 10/08/17 09:42 Blood Pressure 143/87 10/08/17 09:42 O2 Sat by Pulse Oximetry (%) 96 10/08/17 09:00 Constitutional: Yes: No Distress HENT: Yes: Atraumatic Neck: Yes: Supple Cardiovascular: Yes: Regular Rate and Rhythm Respiratory: Yes: CTA Bilaterally Gastrointestinal: Yes: Normal Bowel Sounds Extremities: Yes: WNL Neurological: Yes: Alert, Oriented Labs: CBC, BMP 10/07/17 20:00 10/07/17 20:00 INR, PTT INR 0.97 (0.82-1.09) 10/03/17 15:30 Problem List - Problems (1) Intractable neuropathic pain of right lower extremity Assessment/Plan: prn pain meds pain management got inj R hip by pain management ortho note reviewed Code(s): G57.91 - UNSPECIFIED MONONEUROPATHY OF RIGHT LOWER LIMB (2) Diabetes type 2, controlled Assessment/Plan: on insulin, bgms stable Code(s): E11.9 - TYPE 2 DIABETES MELLITUS WITHOUT COMPLICATIONS (3) HTN (hypertension) Assessment/Plan: on meds stable Code(s): I10 - ESSENTIAL (PRIMARY) HYPERTENSION Assessment/Plan dc planning
[2017-10-08] MEDS: SIMETHICONE 80 MG TAB.CHEW (FP) PO PRN (13:09)
[2017-10-08] MEDS: BISACODYL 10 MG SUPP.RECT PR PRN (15:18)
[2017-10-08] MEDS: DOCUSATE SODIUM 100 MG CAPSULE (FP) PO PRN (15:18)
[2017-10-08] MEDS: ATORVASTATIN CA 20 MG TABLET (FP) PO SCH ×2 (20:33→21:09)
[2017-10-09] MEDS: oxyCODONE HCL 5 MG TABLET PO PRN ×3 (02:43→21:55)
[2017-10-09] MEDS: ACETAMINOPHEN 325 MG TABLET (FP) PO PRN ×2 (02:46→21:56)
[2017-10-09] MEDS ORDERED: INSULIN (LEVEMIR) 100 UNITS/ML UNITS SQ ONE (06:09)
[2017-10-09] MEDS: INSULIN (LEVEMIR) 100 UNITS/ML UNITS SQ SCH (06:11)
[2017-10-09] MEDS: INSULIN SLIDING SCALE (NOVOLOG) 1 VIAL SQ SCH ×4 (06:11→21:51)
[2017-10-09] MEDS ORDERED: INSULIN (NOVOLOG) ASPART 100 UNITS/ML 10ML VIAL ONE (07:08)
[2017-10-09] MEDS ORDERED: ONDANSETRON 4 MG/2 ML VIAL IVPUSH ONE (09:00)
[2017-10-09] MEDS: HEPARIN NA (PORCINE) 5,000 UNITS/ML 1ML VIAL SQ SCH ×2 (09:29→21:59)
[2017-10-09] MEDS: amLODIPine BESYLATE 2.5 MG TABLET (FP) PO SCH (09:30)
[2017-10-09] MEDS: ATENOLOL 25 MG TABLET (FP) PO SCH (09:30)
[2017-10-09] MEDS: GABAPENTIN 100 MG CAPSULE (FP) PO SCH (09:30)
--- NOTE | 2017-10-09 09:42 | EKG ---
Test Reason : Blood Pressure : / mmHG Vent. Rate : 067 BPM Atrial Rate : 067 BPM P-R Int : 196 ms QRS Dur : 104 ms QT Int : 402 ms P-R-T Axes : 065 -48 043 degrees QTc Int : 424 ms SINUS RHYTHM WITH PREMATURE SUPRAVENTRICULAR COMPLEXES LEFT AXIS DEVIATION INFERIOR INFARCT (CITED ON OR BEFORE 02-OCT-2016) ANTEROLATERAL INFARCT (CITED ON OR BEFORE 02-OCT-2016) ABNORMAL ECG WHEN COMPARED WITH ECG OF 03-OCT-2016 07:34, PREMATURE SUPRAVENTRICULAR COMPLEXES ARE NOW PRESENT Confirmed by BO NOVAK, ODELL ([id number]) on 10/09/2017 9:42:39 AM Referred By: Juan PRICE Confirmed By:ODELL SORIANO MD
[2017-10-09] MEDS: BISACODYL 10 MG SUPP.RECT PR PRN (16:45)
--- NOTE | 2017-10-09 19:41 | PN ---
Progress Note, Physician - Current Medication List Current Medications: Active Medications Acetaminophen (Tylenol -) 650 mg PO Q6H PRN PRN Reason: FEVER Last Admin: 10/09/17 02:46 Dose: 650 mg Amlodipine Besylate (Norvasc -) 2.5 mg PO DAILY [facility] Last Admin: 10/09/17 09:30 Dose: 2.5 mg Atenolol (Tenormin -) 25 mg PO DAILY [facility] Last Admin: 10/09/17 09:30 Dose: 25 mg Atorvastatin Calcium (Lipitor -) 20 mg PO HS [facility] Last Admin: 10/08/17 21:09 Dose: Not Given Bisacodyl (Dulcolax Suppository -) 10 mg [place] PRN PRN PRN Reason: CONSTIPATION Last Admin: 10/09/17 16:45 Dose: 10 mg Docusate Sodium (Colace -) 100 mg PO BID PRN PRN Reason: CONSTIPATION Last Admin: 10/08/17 15:18 Dose: 100 mg Gabapentin (Neurontin -) 100 mg PO DAILY [facility] Last Admin: 10/09/17 09:30 Dose: 100 mg Heparin Sodium (Porcine) (Heparin -) 5,000 unit SQ BID [facility] Last Admin: 10/09/17 09:29 Dose: 5,000 unit Insulin Aspart (Novolog Vial Sliding Scale -) 1 vial SQ [facility]; Protocol Last Admin: 10/09/17 16:41 Dose: 2 units Insulin Detemir (Levemir Vial) 15 units SQ AM [facility] Last Admin: 10/09/17 06:11 Dose: 15 units Oxycodone HCl (Roxicodone -) 10 mg PO Q6H PRN PRN Reason: PAIN LEVEL 5-10 Last Admin: 10/09/17 14:04 Dose: 10 mg Simethicone (Mylicon -) 80 mg PO QID PRN PRN Reason: DYSPEPSIA Last Admin: 10/08/17 13:09 Dose: 80 mg - Objective Vital Signs: Vital Signs Temperature 98.5 F 10/09/17 17:25 Pulse Rate 73 10/09/17 17:25 Respiratory Rate 20 10/09/17 17:25 Blood Pressure 156/83 10/09/17 17:25 O2 Sat by Pulse Oximetry (%) 95 10/09/17 09:00 Constitutional: Yes: No Distress HENT: Yes: Atraumatic Neck: Yes: Supple Cardiovascular: Yes: Regular Rate and Rhythm Respiratory: Yes: CTA Bilaterally Gastrointestinal: Yes: Normal Bowel Sounds Extremities: Yes: WNL Neurological: Yes: Alert, Oriented Labs: CBC, BMP 10/07/17 20:00 10/07/17 20:00 INR, PTT INR 0.97 (0.82-1.09) 10/03/17 15:30 Problem List - Problems (1) Intractable neuropathic pain of right lower extremity Assessment/Plan: prn pain meds pain management got inj R hip by pain management ortho note reviewed Code(s): G57.91 - UNSPECIFIED MONONEUROPATHY OF RIGHT LOWER LIMB (2) Diabetes type 2, controlled Assessment/Plan: on insulin, bgms stable Code(s): E11.9 - TYPE 2 DIABETES MELLITUS WITHOUT COMPLICATIONS (3) HTN (hypertension) Assessment/Plan: on meds stable Code(s): I10 - ESSENTIAL (PRIMARY) HYPERTENSION (4) Constipation Assessment/Plan: pt is on bowel regimen will get flat film of abdomen will put her on full liquid diet gi eval Code(s): K59.00 - CONSTIPATION, UNSPECIFIED
[2017-10-09] MEDS: ATORVASTATIN CA 20 MG TABLET (FP) PO SCH (21:55)
[2017-10-10] MEDS ORDERED: INSULIN (NOVOLOG) ASPART 100 UNITS/ML 10ML VIAL ONE ×3 (06:17→11:59)
[2017-10-10] MEDS: INSULIN (LEVEMIR) 100 UNITS/ML UNITS SQ SCH (06:18)
[2017-10-10] MEDS: INSULIN SLIDING SCALE (NOVOLOG) 1 VIAL SQ SCH ×4 (06:18→21:51)
[2017-10-10 08:13] LABS: BASO % 0.4 % (0-2.0); EOS % 1.1 % (0-4.5); HEMATOCRIT 38.6 % (32.4-45.2); HEMOGLOBIN 13.1 GM/dL (10.7-15.3); LYMPH % 17.8 % (8-40); MCH 29.5 pg (25.7-33.7); MCHC 33.9 g/dl (32.0-36.0); MEAN CELL VOLUME 87.1 fl (80-96); MONO % 8.5 % (3.8-10.2); NEUT % 72.2 % (42.8-82.8); PLATELET COUNT 213 K/MM3 (134-434); RBC 4.43 M/mm3 (3.60-5.2); RDW 14.5 % (11.6-15.6); WHITE BLOOD COUNT 6.4 K/mm3 (4.0-10.0)
[2017-10-10 08:35] LABS: CHLORIDE 103 mmol/L (98-107); SODIUM 140 mmol/L (136-145)
[2017-10-10 08:54] LABS: ALBUMIN 1.9 g/dl (3.4-5.0); ALK PHOS 75 U/L (45-117); ANION GAP 7 (8-16); BILIRUBIN,TOTAL 0.5 mg/dL (0.2-1.0); BLOOD UREA NITROGEN 26 mg/dL (7-18); CALCIUM 8.3 mg/dL (8.5-10.1); CO2 30 mmol/L (21-32); CREATININE 1.2 mg/dL (0.55-1.02); GLUCOSE,RANDOM 148 mg/dL (74-106); SGOT/AST 20 U/L (15-37); SGPT/ALT 26 U/L (12-78)
[2017-10-10] MEDS: SIMETHICONE 80 MG TAB.CHEW (FP) PO PRN (09:38)
[2017-10-10] MEDS: BISACODYL 10 MG SUPP.RECT PR PRN (09:45)
[2017-10-10] MEDS: amLODIPine BESYLATE 2.5 MG TABLET (FP) PO SCH (09:47)
[2017-10-10] MEDS: ATENOLOL 25 MG TABLET (FP) PO SCH (09:47)
[2017-10-10] MEDS: HEPARIN NA (PORCINE) 5,000 UNITS/ML 1ML VIAL SQ SCH (09:47)
[2017-10-10] MEDS: GABAPENTIN 100 MG CAPSULE (FP) PO SCH (09:47)
[2017-10-10] MEDS ORDERED: morphine SULFATE 4 MG/ML VIAL IVPUSH PRN (12:48)
--- NOTE | 2017-10-10 14:24 | PN ---
Progress Note, Physician History of Present Illness: previous noted - Current Medication List Current Medications: Active Medications Acetaminophen (Tylenol -) 650 mg PO Q6H PRN PRN Reason: FEVER Last Admin: 10/09/17 21:56 Dose: 650 mg Amlodipine Besylate (Norvasc -) 2.5 mg PO DAILY [facility] Last Admin: 10/10/17 09:47 Dose: 2.5 mg Atenolol (Tenormin -) 25 mg PO DAILY [facility] Last Admin: 10/10/17 09:47 Dose: 25 mg Atorvastatin Calcium (Lipitor -) 20 mg PO HS [facility] Last Admin: 10/09/17 21:55 Dose: 20 mg Bisacodyl (Dulcolax Suppository -) 10 mg [place] PRN PRN PRN Reason: CONSTIPATION Last Admin: 10/10/17 09:45 Dose: 10 mg Docusate Sodium (Colace -) 100 mg PO BID PRN PRN Reason: CONSTIPATION Last Admin: 10/08/17 15:18 Dose: 100 mg Gabapentin (Neurontin -) 100 mg PO DAILY [facility] Last Admin: 10/10/17 09:47 Dose: 100 mg Heparin Sodium (Porcine) (Heparin -) 5,000 unit SQ BID [facility] Last Admin: 10/10/17 09:47 Dose: 5,000 unit Insulin Aspart (Novolog Vial Sliding Scale -) 1 vial SQ [facility]; Protocol Last Admin: 10/10/17 11:57 Dose: 2 units Insulin Detemir (Levemir Vial) 15 units SQ AM [facility] Last Admin: 10/10/17 06:18 Dose: 15 units Lactulose (Cephulac (Oral Use)) 20 gm PO TID PRN PRN Reason: CONSTIPATION Morphine Sulfate (Morphine Sulfate) 1 mg IVPUSH Q4H PRN PRN Reason: PAIN SCALE 5-10 Polyethylene Glycol (Miralax (For Daily Use) -) 17 gm PO TID [facility] Senna (Senna -) 1 tab PO BID [facility] Simethicone (Mylicon -) 80 mg PO QID PRN PRN Reason: DYSPEPSIA Last Admin: 10/10/17 09:38 Dose: 80 mg - Objective Vital Signs: Vital Signs Temperature 97.9 F 10/10/17 10:00 Pulse Rate 68 10/10/17 10:00 Respiratory Rate 20 10/10/17 10:00 Blood Pressure 161/71 06/18/18 10:00 O2 Sat by Pulse Oximetry (%) 95 10/10/17 09:00 Constitutional: Yes: Anxious HENT: Yes: Atraumatic Neck: Yes: Supple Cardiovascular: Yes: Regular Rate and Rhythm Respiratory: Yes: CTA Bilaterally Gastrointestinal: Yes: Normal Bowel Sounds Extremities: Yes: WNL Neurological: Yes: Alert, Oriented Labs: CBC, BMP 10/10/17 07:30 10/10/17 07:30 INR, PTT INR 0.97 (0.82-1.09) 10/03/17 15:30 Problem List - Problems (1) Intractable neuropathic pain of right lower extremity Assessment/Plan: prn pain meds pain management got inj R hip by pain management ortho note reviewed Code(s): G57.91 - UNSPECIFIED MONONEUROPATHY OF RIGHT LOWER LIMB (2) Diabetes type 2, controlled Assessment/Plan: on insulin, bgms stable Code(s): E11.9 - TYPE 2 DIABETES MELLITUS WITHOUT COMPLICATIONS (3) HTN (hypertension) Assessment/Plan: on meds stable Code(s): I10 - ESSENTIAL (PRIMARY) HYPERTENSION (4) Constipation Assessment/Plan: pt is on bowel regimen fecal material on xray gi eval Code(s): K59.00 - CONSTIPATION, UNSPECIFIED
[2017-10-10] MEDS: POLYETHYLENE GLYCOL 3350 119 GM BTL PO SCH ×2 (14:39→21:45)
--- NOTE | 2017-10-10 15:14 | CON.GI ---
Consult Consult Specialty:: Gastroenterology Referred by:: Dr. Hampton Reason for Consultation:: Constipation - History of Present Illness Chief Complaint: Constipation over a week History of Present Illness: Patient is an 81 year old female who presented for right foot pain that started one week ago. Patient describes the pain as a burning and squeezing sensation that starts from the right calf radiating to the right groin. Patient describes the pain as constant and rates it an 8/10. Patient reports initially going to the ED 10/02 and was discharged home. However, that same night the pain intensified, which prompted her to return. Patient throughout the hospital course started complaining of severe constipation with no bowel movements in over a week. Patient was placed on a bowel regimen by her PCP with no improvements. Otherwise, patient denies abdominal pain, fever, chills, chest pain, palpitations, shortness of breath, fatigue, joint pain, rash, jaundice, hematochezia, hematemesis, hematuria, melena, dark urine, dysuria, frequency, urgency, diarrhea weight loss, diet change, appetite change, recent antibiotic use, recent travel. Patient denies any history of blood transfusions, hepatitis, autoimmune disorders. Patient reports having an endoscopy and colonoscopy "many years" ago with normal findings. - History Source History Provided By: Patient Limitations to Obtaining History: No Limitations - Past Medical History Cardio/Vascular: Yes: HTN Endocrine: Yes: Diabetes Mellitus (Insulin dependent ) - Past Surgical History Past Surgical History: Yes: Hysterectomy, Oopherectomy - Alcohol/Substance Use Hx Alcohol Use: No - Smoking History Smoking history: Never smoked Have you smoked in the past 12 months: No - Social History History of Recent Travel: No <Kathie Nj - Last Filed: 10/10/17 17:10> Home Medications <Kathie Nj - Last Filed: 10/10/17 17:10> <Jose Manuel Strong - Last Filed: 10/11/17 09:58> - Allergies Allergies/Adverse Reactions: Allergies Allergy/AdvReac Type Severity Reaction Status Date / Time No Known Allergies Allergy Verified 10/03/17 14:23 - Home Medications Home Medications: Ambulatory Orders Insulin (LOG) Aspart [NovoLOG -] 0 unit SQ DAILY 10/03/16 Atorvastatin Ca [Lipitor] 20 mg PO HS #30 tablet MDD 1 10/05/16 Bacitracin - [Bacitracin Topical Ointment -] 1 applic TP DAILY #1 tube MDD 1 Insulin (Levemir) [Levemir Vial] 15 units SQ AM #100 ml MDD 15 unit 10/05/16 Amlodipine Besylate [Norvasc -] 10 mg PO DAILY 10/04/17 Atenolol [Tenormin] 50 mg PO DAILY 10/07/17 Losartan Potassium [Cozaar -] 50 mg PO DAILY 10/07/17 Pantoprazole Sodium 40 mg PO DAILY 10/07/17 Tramadol HCl [Ultram] 50 mg PO HS PRN 10/07/17 Review of Systems - Review of Systems Constitutional: reports: No Symptoms. denies: Chills, Diaphoresis, Fever, Loss of Appetite, Unintentional Wgt. Loss HENT: reports: No Symptoms. denies: Difficult Swallowing, Epistaxis Neck: reports: No Symptoms. denies: Pain on Movement, Stiffness Cardiovascular: reports: No Symptoms. denies: Chest Pain, Edema, Palpitations, Shortness of Breath Respiratory: reports: No Symptoms. denies: Cough, Hemoptysis, SOB, SOB on Exertion Gastrointestinal: reports: Constipation. denies: Abdominal Pain, Bloating, Diarrhea, Dysphagia, Melena, Rectal Bleeding, Vomiting, Vomiting Blood Genitourinary: reports: No Symptoms. denies: Burning, Discharge, Dysuria, Frequency, Hematuria Neurological: reports: No Symptoms. denies: Change in Speech, Confusion, Dizziness, Headache <Kathie Nj - Last Filed: 10/10/17 17:10> Physical Exam-GI Vital Signs: Vital Signs Temperature 97.9 F 10/10/17 10:00 Pulse Rate 68 10/10/17 10:00 Respiratory Rate 20 10/10/17 10:00 Blood Pressure 161/71 10/10/17 10:00 O2 Sat by Pulse Oximetry (%) 95 10/10/17 09:00 Constitutional: Yes: Well Nourished, No Distress, Calm Eyes: Yes: WNL, Conjunctiva Clear, PERRL. No: Sclera Icterus HENT: Yes: WNL, Atraumatic, Normocephalic. No: Pharyngeal Erythema, Thrush Neck: Yes: WNL, Supple, Trachea Midline. No: Decreased ROM, Lymphadenopathy, Tenderness Cardiovascular: Yes: WNL, Regular Rate and Rhythm, S1, S2. No: JVD Respiratory: Yes: WNL, Regular, CTA Bilaterally. No: Accessory Muscle Use, Cough, Rales, Rhonchi, SOB Gastrointestinal Inspection: Yes: WNL, Scars (veritcal healed incision below the umbilicus with suprapubic horizontal healed incision). No: Ascites, Distention, Hernia ...Auscultate: Yes: Normoactive Bowel Sounds ...Palpate: Yes: Soft. No: Firm/Rigid, Guarding, Hepatomegaly, Tenderness ...Percussion: No: Fluid Wave ...Rectal Exam: Yes: WNL. No: Erythema, Hemorrhoids/External, Inflammation Genitourinary: Yes: WNL. No: Bladder Distention, CVA Tenderness - Left, CVA Tenderness - Right, Patel Present Extremities: Yes: WNL. No: Calf Tenderness, Cold, Cool, Erythema Edema: No Neurological: Yes: WNL, Alert, Oriented. No: Aphasia, Dysarthria, Numbness, Tremors Psychiatric: Yes: WNL, Alert, Oriented Labs: CBC, BMP 10/10/17 07:30 10/10/17 07:30 INR, PTT INR 0.97 (0.82-1.09) 10/03/17 15:30 <Kathie Nj - Last Filed: 10/10/17 17:10> Vital Signs: Vital Signs Temperature 97.7 F 10/11/17 06:18 Pulse Rate 72 10/11/17 06:18 Respiratory Rate 20 10/11/17 06:18 Blood Pressure 162/76 10/11/17 06:18 O2 Sat by Pulse Oximetry (%) 95 10/10/17 21:00 Labs: CBC, [facility] 10/10/17 07:30 10/10/17 07:30 INR, PTT INR 0.97 (0.82-1.09) 10/03/17 15:30 <Jose Manuel Strong - Last Filed: 10/11/17 09:58> Imaging - Results X-ray: Report Reviewed (Fecal debris is seen throughout the nondilated colon. No evidence of intestinal obstruction, or pneumoperitoneum.), Image Reviewed <Kathie Nj - Last Filed: 10/10/17 17:10> Problem List - Problems (1) Constipation Code(s): K59.00 - CONSTIPATION, UNSPECIFIED (2) Intractable neuropathic pain of right lower extremity Code(s): G57.91 - UNSPECIFIED MONONEUROPATHY OF RIGHT LOWER LIMB <Kathie Nj - Last Filed: 10/10/17 17:10> Assessment/Plan Patient is an 81 year old female who presented with right LE pain and throughout her course was found to have constipation despite a bowel regimen. Patient's hepatic function is wnl with no signs of hepatocellular disease or cholestatis. Abdominal X-Ray revealed no evidence of obstruction but with some fecal debris, likely representing constipation. Miralax TID ordered and added to bowel regimen. Case Discussed with Dr. Strong. Kathie Nj [id number] <Kathie Nj - Last Filed: 10/10/17 17:10>
[2017-10-10] MEDS: LACTULOSE 20 GM/30 ML UDC (FOR ORAL USE ONLY) PO PRN (16:06)
[2017-10-10] MEDS: ATORVASTATIN CA 20 MG TABLET (FP) PO SCH (21:45)
[2017-10-10] MEDS: SENNOSIDES 8.6MG TABLET (FP) PO SCH (21:45)
[2017-10-10] MEDS: ACETAMINOPHEN 325 MG TABLET (FP) PO PRN (21:50)
[2017-10-11] MEDS: POLYETHYLENE GLYCOL 3350 119 GM BTL PO SCH ×2 (05:47→14:11)
[2017-10-11] MEDS: INSULIN SLIDING SCALE (NOVOLOG) 1 VIAL SQ SCH ×3 (06:03→18:30)
[2017-10-11] MEDS: INSULIN (LEVEMIR) 100 UNITS/ML UNITS SQ SCH (06:03)
[2017-10-11] MEDS: SENNOSIDES 8.6MG TABLET (FP) PO SCH (09:22)
[2017-10-11] MEDS: LACTULOSE 20 GM/30 ML UDC (FOR ORAL USE ONLY) PO PRN (09:22)
[2017-10-11] MEDS: amLODIPine BESYLATE 2.5 MG TABLET (FP) PO SCH (09:22)
[2017-10-11] MEDS: ATENOLOL 25 MG TABLET (FP) PO SCH (09:22)
[2017-10-11] MEDS: DOCUSATE SODIUM 100 MG CAPSULE (FP) PO PRN (09:22)
[2017-10-11] MEDS: GABAPENTIN 100 MG CAPSULE (FP) PO SCH (09:22)
[2017-10-11] MEDS: ACETAMINOPHEN 325 MG TABLET (FP) PO PRN (09:25)
--- NOTE | 2017-10-11 15:32 | DS ---
Physical Examination Vital Signs: Vital Signs Temperature 97.7 F 10/11/17 14:56 Pulse Rate 71 10/11/17 14:56 Respiratory Rate 18 10/11/17 14:56 Blood Pressure 134/69 10/11/17 10:00 O2 Sat by Pulse Oximetry (%) 96 10/11/17 09:00 Constitutional: Yes: No Distress HENT: Yes: Atraumatic Neck: Yes: Supple Cardiovascular: Yes: Regular Rate and Rhythm Respiratory: Yes: CTA Bilaterally Gastrointestinal: Yes: Normal Bowel Sounds Extremities: Yes: WNL Neurological: Yes: Alert, Oriented Labs: CBC, BMP 10/10/17 07:30 10/10/17 07:30 Discharge Summary Reason For Visit: INTRACTABLE NEUROPATHIC PAIN RT LOWER Current Active Problems Constipation (Acute) Intractable neuropathic pain of right lower extremity (Acute) Condition: Stable - Instructions Referrals: Gómez Chavez MD [Staff Physician] - ON STAFF,NOT [Primary Care Provider] - Nnamdi Salas MD [Staff Physician] - - Home Medications Comprehensive Discharge Medication List: Ambulatory Orders Insulin (LOG) Aspart [NovoLOG -] 0 unit SQ DAILY 10/03/16 Atorvastatin Ca [Lipitor] 20 mg PO HS #30 tablet MDD 1 10/05/16 Bacitracin - [Bacitracin Topical Ointment -] 1 applic TP DAILY #1 tube MDD 1 Insulin (Levemir) [Levemir Vial] 15 units SQ AM #100 ml MDD 15 unit 10/05/16 Amlodipine Besylate [Norvasc -] 10 mg PO DAILY 10/04/17 Atenolol [Tenormin] 50 mg PO DAILY 10/07/17 Losartan Potassium [Cozaar -] 50 mg PO DAILY 10/07/17 Pantoprazole Sodium 40 mg PO DAILY 10/07/17 Tramadol HCl [Ultram] 50 mg PO HS PRN 10/07/17 pt had a good bm today, she said she is feeling good dc home/snf
[2017-10-11 17:14] VITALS: TEMP 98.5
[2017-10-11 19:43] VITALS: BP 154/77; PULSE 75
== END 2017-10-11 19:47 | DRG 74 ==
LOC: JER 14:14 → JERBED 17:53 → INTOOBSV 17:53 → J8W 20:23 → OBSVTOIN 10-04 10:37
PROVIDERS: ADMIT Internal Medicine; ATTEND Internal Medicine
DX: E11.41 Type 2 diabetes mellitus with diabetic mononeuropathy (principal); G57.91 Unspecified mononeuropathy of right lower limb; I10 Essential (primary) hypertension; M19.90 Unspecified osteoarthritis, unspecified site; K59.00 Constipation, unspecified
CPT/HCPCS: 36415; 72100-TC-FY; 73523-TC-FY; 73560-TC-RT-FY; 73718-TC; 74018-TC-FY; 80053; 81003; 81015; 82550; 82962; 84484; 85025; 85610; 85651; 85730; 86140; 87086; 93005; 93010; 97116-GP; 97161-GP; 99281-25; G0378; J1644

== ENCOUNTER 2018-01-01 02:34 | Inpatient (IN) | payer OTHER ==
[2018-01-01 03:18] VITALS: BMI 30.2
--- NOTE | 2018-01-01 03:34 | PDOC ---
History of Present Illness - General Chief Complaint: Chest Pain Stated Complaint: CHEST PAIN Time Seen by Provider: 01/01/18 03:34 - History of Present Illness Initial Comments: 01/01/18 03:50 Ms. Hua is an 82 yo female w/ pmh of HTN and IDDM who presents for evaluation of 1 day history of shortness of breath on exertion with chest tightness. Patient also reports decreased energy and that she has had difficulty breathing as well. The patient denies headache and dizziness. Denies fever, chills, nausea, vomit, diarrhea and constipation. Denies dysuria, frequency, urgency and hematuria. Allergies: NKDA Past History - Past Medical History Allergies/Adverse Reactions: Allergies Allergy/AdvReac Type Severity Reaction Status Date / Time No Known Allergies Allergy Verified 01/01/18 03:15 Home Medications: Ambulatory Orders Insulin (LOG) Aspart [NovoLOG -] 0 unit SQ DAILY 10/03/16 Atorvastatin Ca [Lipitor] 20 mg PO HS #30 tablet MDD 1 10/05/16 Bacitracin - [Bacitracin Topical Ointment -] 1 applic TP DAILY #1 tube MDD 1 Insulin (Levemir) [Levemir Vial] 15 units SQ AM #100 ml MDD 15 unit 10/05/16 Amlodipine Besylate [Norvasc -] 10 mg PO DAILY 10/04/17 Atenolol [Tenormin] 50 mg PO DAILY 10/07/17 Losartan Potassium [Cozaar -] 50 mg PO DAILY 10/07/17 Pantoprazole Sodium 40 mg PO DAILY 10/07/17 Tramadol HCl [Ultram] 50 mg PO HS PRN 10/07/17 COPD: No Diabetes: Yes (IDDM) HTN: Yes Hypercholesterolemia: Yes - Surgical History Orthopedic Surgery: Yes (R knee replacement) - Suicide/Smoking/Psychosocial Hx Smoking History: Never smoked Have you smoked in the past 12 months: No Hx Alcohol Use: No Drug/Substance Use Hx: No Substance Use Type: None Review of Systems - Review of Systems Comments:: 01/01/18 04:00 GENERAL/CONSTITUTIONAL: No fever or chills. No weakness. HEAD, EYES, EARS, NOSE AND THROAT: No change in vision. No ear pain or discharge. No sore throat. CARDIOVASCULAR: +Chest tightness with difficulty breathing as described. RESPIRATORY: No cough, wheezing, or hemoptysis. GASTROINTESTINAL: No nausea, vomiting, diarrhea or constipation. GENITOURINARY: No dysuria, frequency, or change in urination. MUSCULOSKELETAL: No joint or muscle swelling or pain. No neck or back pain. SKIN: No rash NEUROLOGIC: No headache, vertigo, loss of consciousness, or change in strength/ sensation. ENDOCRINE: No increased thirst. No abnormal weight change HEMATOLOGIC/LYMPHATIC: No anemia, easy bleeding, or history of blood clots. ALLERGIC/IMMUNOLOGIC: No hives or skin allergy. *Physical Exam - Vital Signs Last Vital Signs Temp Pulse Resp BP Pulse Ox 99.9 F H 68 18 150/56 90 L 01/01/18 03:15 01/01/18 03:15 01/01/18 03:15 01/01/18 03:15 01/01/18 03:15 - Physical Exam Comments: 01/01/18 04:00 GENERAL: Awake, alert, and fully oriented, in no acute distress HEAD: No signs of trauma, normocephalic, atraumatic EYES: PERRLA, EOMI, sclera anicteric, conjunctiva clear ENT: Auricles normal inspection, hearing grossly normal, nares patent, oropharynx clear without exudates. Moist mucosa NECK: Normal ROM, supple, no lymphadenopathy, JVD, or masses LUNGS: +Shallow breaths appreciated, crackles/wheezes bilaterally HEART: Regular rate and rhythm, normal S1 and S2, no murmurs, rubs or gallops, peripheral pulses normal and equal bilaterally. ABDOMEN: Soft, nontender, normoactive bowel sounds. No guarding, no rebound. No masses EXTREMITIES: +2+ Pedal edema to knees noted bilaterally. Normal inspection, Normal range of motion, no edema. No clubbing or cyanosis. NEUROLOGICAL: Cranial nerves II through XII grossly intact. Normal speech, normal gait, no focal sensorimotor deficits SKIN: Warm, Dry, normal turgor, no rashes or lesions noted. ED Treatment Course - LABORATORY CBC & Chemistry Diagram: 01/01/18 04:04 01/01/18 04:10 Medical Decision Making - Medical Decision Making 01/01/18 04:50 Ms. Hua is an 82 yo female w/ pmh as described who presents for evaluation of cardiac symptoms of dyspnea on exertion with difficulty breathing. Cardiac workup started. 09/09/18 04:59 Patient noted to have elevated BNP as below. CXR consistent w/ fluid overload. Admitting patient for diuresis. Laboratory Results - last 24 hr 01/01/18 01/01/18 01/01/18 04:04 04:10 04:10 WBC 6.7 RBC 3.84 Hgb 11.3 Hct 33.2 MCV 86.5 MCH 29.4 MCHC 33.9 RDW 15.2 Plt Count 178 MPV 8.4 Absolute Neuts (auto) 4.2 Neutrophils % 62.7 Lymphocytes % 21.8 D Monocytes % 11.2 H Eosinophils % 3.4 D Basophils % 0.9 Nucleated RBC % 0 PT with INR 11.20 INR 0.99 PTT (Actin FS) 31.7 Sodium 140 Potassium 4.5 Chloride 107 Carbon Dioxide 28 Anion Gap 5 L BUN 31 H Creatinine 1.5 H Creat Clearance w eGFR 33.25 Random Glucose 155 H Calcium 7.9 L Total Bilirubin 0.4 AST 17 ALT 16 Alkaline Phosphatase 58 Creatine Kinase 112 Troponin I < 0.02 B-Natriuretic Peptide Total Protein 6.7 Albumin 2.5 L 01/01/18 04:10 WBC RBC Hgb Hct MCV MCH MCHC RDW Plt Count MPV Absolute Neuts (auto) Neutrophils % Lymphocytes % Monocytes % Eosinophils % Basophils % Nucleated RBC % PT with INR INR PTT (Actin FS) Sodium Potassium Chloride Carbon Dioxide Anion Gap BUN Creatinine Creat Clearance w eGFR Random Glucose Calcium Total Bilirubin AST ALT Alkaline Phosphatase Creatine Kinase Troponin I B-Natriuretic Peptide 2376.90 H Total Protein Albumin *DC/Admit/Observation/Transfer Diagnosis at time of Disposition: Shortness of breath Fluid overload Qualifiers: Hypervolemia type: unspecified Qualified Code(s): E87.70 - Fluid overload, unspecified - Discharge Dispostion Decision to Admit order: Yes - Referrals Referrals: ON STAFF,NOT [Primary Care Provider] - - Patient Instructions - Post Discharge Activity
[2018-01-01 04:17] LABS: BASO % 0.9 % (0-2.0); EOS % 3.4 % (0-4.5); HEMATOCRIT 33.2 % (32.4-45.2); HEMOGLOBIN 11.3 GM/dL (10.7-15.3); LYMPH % 21.8 % (8-40); MCH 29.4 pg (25.7-33.7); MCHC 33.9 g/dl (32.0-36.0); MEAN CELL VOLUME 86.5 fl (80-96); MEAN PLT VOLUME 8.4 fl (7.5-11.1); MONO % 11.2 % (3.8-10.2); NEUT % 62.7 % (42.8-82.8); PLATELET COUNT 178 K/MM3 (134-434); RBC 3.84 M/mm3 (3.60-5.2); RDW 15.2 % (11.6-15.6); WHITE BLOOD COUNT 6.7 K/mm3 (4.0-10.0)
[2018-01-01 04:32] LABS: INR 0.99 (0.83-1.09); PROTHROMBIN TIME (PATIENT) 11.2 SEC (9.7-13.0)
[2018-01-01 04:34] LABS: ACTIVATED PTT 31.7 SECONDS (25.2-36.5)
[2018-01-01 04:40] LABS: ALBUMIN 2.5 g/dl (3.4-5.0); ANION GAP 5 MMOL/L (8-16); BILIRUBIN,TOTAL 0.4 mg/dL (0.2-1.0); BLOOD UREA NITROGEN 31 mg/dL (7-18); CALCIUM 7.9 mg/dL (8.5-10.1); CHLORIDE 107 mmol/L (98-107); CO2 28 mmol/L (21-32); CREATININE 1.5 mg/dL (0.55-1.02); GLUCOSE,RANDOM 155 mg/dL (74-106); POTASSIUM 4.5 mmol/L (3.5-5.1); SGOT/AST 17 U/L (15-37); SGPT/ALT 16 U/L (12-78); SODIUM 140 mmol/L (136-145); TOT PROT 6.7 g/dl (6.4-8.2)
[2018-01-01 04:42] LABS: ALK PHOS 58 U/L (45-117)
[2018-01-01] MEDS ORDERED: FUROSEMIDE 40 MG/4 ML INJECTABLE VIAL IVPUSH ONE (04:49)
[2018-01-01] MEDS ORDERED: FUROSEMIDE 40 MG/4 ML INJECTABLE VIAL ONE (04:56)
[2018-01-01] MEDS ORDERED: ALBUTEROL SO4 2.5/IPRATROPIUM 0.5 INH SOL 3 ML VIAL.NEB. NEB ONE (05:21)
[2018-01-01] MEDS ORDERED: IPRATROPIUM BR 0.02% 0.5 MG/2.5 ML VIAL.NEB. NEB ONE ×2 (05:28→05:29)
[2018-01-01 05:41] LABS: URINE APPEARANCE CLEAR; URINE BILIRUBIN NEGATIVE (<2.0 mg/dL); URINE COLOR LTYELLOW; URINE GLUCOSE (UA) 1+ (NEGATIVE); URINE KETONE NEGATIVE (NEGATIVE); URINE LEUK ESTERASE TRACE (NEGATIVE); URINE NITRITE NEGATIVE (NEGATIVE); URINE UROBILINOGEN NEGATIVE mg/dL (0.2-1.0)
[2018-01-01 05:44] LABS: URINE PROTEIN 3+ (NEGATIVE)
[2018-01-01 05:45] LABS: EPI CELLS RARE /HPF (FEW); URINE BACTERIA RARE /hpf (NONE SEEN); URINE HYALINE CAST 2 /lpf; URINE MUCUS RARE
--- NOTE | 2018-01-01 05:59 | PDOC ---
Attending Attestation - Resident Resident Name: Chris Colbert - ED Attending Attestation I have performed the following: I have examined & evaluated the patient, The case was reviewed & discussed with the resident, I agree w/resident's findings & plan - HPI HPI: 01/01/18 05:58 Pt comes with - Physicial Exam PE: 01/01/18 05:58 Agree with resident exam 01/01/18 06:20 Bilateral leg swelling greater than usual. We will get duplex dopplers - Medical Decision Making 01/01/18 06:20 Labs normal; BNP elevated. Pt's Cr is 1.5 not far off where it usually is. Pt will be sent for duplex dopplers of her legs in the AM and she will be admitted for chest pain to the telemetry unit.
--- NOTE | 2018-01-01 06:17 | HP ---
CHIEF COMPLAINT: SOB PCP: Jaspreet HISTORY OF PRESENT ILLNESS: 82 y/o F w/ PMHx IDDM, HTN, HLD p/w SOB, DELAROSA, chest tightness and pleuritic pain x 1 day and LE edema x 1 week. Given duonebs, Lasix, Atrovent in ED. CXR c/ w fluid overload. EKG non-concerning for ACS. Additionally complains of back pain centered at L5/S1 radiating circumferentially. Denies fever, chills, nausea , vomit, diarrhea and constipation. Denies dysuria, frequency, urgency and hematuria. ER course was notable for: (1) BNP 2376 (2) Trop neg (3) Recent Travel: PAST MEDICAL HISTORY: As per HPI PAST SURGICAL HISTORY: Social History: Smoking: Alcohol: Drugs: Family History: Allergies No Known Allergies Allergy (Verified 01/01/18 03:15) HOME MEDICATIONS: Home Medications Medication Instructions Recorded Insulin (LOG) Aspart [NovoLOG -] 0 unit SQ DAILY 10/03/16 Atorvastatin Ca [Lipitor] 20 mg PO HS #30 tablet MDD 1 10/05/16 Bacitracin - [Bacitracin Topical 1 applic TP DAILY #1 tube MDD 1 10/05/16 Ointment -] Insulin (Levemir) [Levemir Vial] 15 units SQ AM #100 ml MDD 15 unit 10/05/16 Amlodipine Besylate [Norvasc -] 10 mg PO DAILY 10/04/17 Atenolol [Tenormin] 50 mg PO DAILY 10/07/17 Losartan Potassium [Cozaar -] 50 mg PO DAILY 10/07/17 Pantoprazole Sodium 40 mg PO DAILY 10/07/17 Tramadol HCl [Ultram] 50 mg PO HS PRN 10/07/17 REVIEW OF SYSTEMS As per HPI PHYSICAL EXAMINATION Vital Signs - 24 hr 01/01/18 01/01/18 03:15 03:32 Temperature 99.9 F H Pulse Rate 68 Respiratory 18 Rate Blood Pressure 150/56 O2 Sat by Pulse 90 L 98 Oximetry (%) GENERAL: A&Ox3 HEAD: Normal with no signs of trauma. EYES: Pupils equal, round and reactive to light, extraocular movements intact, sclera anicteric, conjunctiva clear. No lid lag. EARS, NOSE, THROAT: Ears normal, nares patent, oropharynx clear without exudates. Moist mucous membranes. NECK: Normal range of motion, supple without lymphadenopathy, JVD, or masses. LUNGS: Diffuse wheezing throughout, bibasilar crackles HEART: Regular rate and rhythm, normal S1 and S2 without murmur, rub or gallop. ABDOMEN: Soft, nontender, not distended, normoactive bowel sounds, no guarding, no rebound, no masses. No hepatomegaly or splenomegaly. MUSCULOSKELETAL: Tenderness over L5/S1 UPPER EXTREMITIES: 2+ pulses, warm, well-perfused. No cyanosis. No clubbing. No peripheral edema. LOWER EXTREMITIES: 2+ pulses, warm, well-perfused. +calf tenderness, 2+ pitting edema up to knee b/l NEUROLOGICAL: Cranial nerves II-XII intact. No focal deficits. Gait not observed Laboratory Results - last 24 hr 01/01/18 01/01/18 01/01/18 04:04 04:10 04:10 WBC 6.7 RBC 3.84 Hgb 11.3 Hct 33.2 MCV 86.5 MCH 29.4 MCHC 33.9 RDW 15.2 Plt Count 178 MPV 8.4 Absolute Neuts (auto) 4.2 Neutrophils % 62.7 Lymphocytes % 21.8 D Monocytes % 11.2 H Eosinophils % 3.4 D Basophils % 0.9 Nucleated RBC % 0 PT with INR 11.20 INR 0.99 PTT (Actin FS) 31.7 Sodium 140 Potassium 4.5 Chloride 107 Carbon Dioxide 28 Anion Gap 5 L BUN 31 H Creatinine 1.5 H Creat Clearance w eGFR 33.25 Random Glucose 155 H Calcium 7.9 L Total Bilirubin 0.4 AST 17 ALT 16 Alkaline Phosphatase 58 Creatine Kinase 112 Troponin I < 0.02 B-Natriuretic Peptide Total Protein 6.7 Albumin 2.5 L Urine Color Urine Appearance Urine pH Ur Specific [place] Urine Protein Urine Glucose (UA) Urine Ketones Urine Blood Urine Nitrite Urine Bilirubin Urine Urobilinogen Ur Leukocyte Esterase Urine WBC (Auto) Urine RBC (Auto) Ur Epithelial Cells Urine Bacteria Hyaline Casts Urine Mucus Blood Type Antibody Screen 01/01/18 01/01/18 01/01/18 04:10 04:10 05:25 WBC RBC Hgb Hct MCV MCH MCHC RDW Plt Count MPV Absolute Neuts (auto) Neutrophils % Lymphocytes % Monocytes % Eosinophils % Basophils % Nucleated RBC % PT with INR INR PTT (Actin FS) Sodium Potassium Chloride Carbon Dioxide Anion Gap BUN Creatinine Creat Clearance w eGFR Random Glucose Calcium Total Bilirubin AST ALT Alkaline Phosphatase Creatine Kinase Troponin I B-Natriuretic Peptide 2376.90 H Total Protein Albumin Urine Color Ltyellow Urine Appearance Clear Urine pH 5.0 Ur Specific [place] 1.009 Urine Protein 3+ H Urine Glucose (UA) 1+ H Urine Ketones Negative Urine Blood Negative Urine Nitrite Negative Urine Bilirubin Negative Urine Urobilinogen Negative Ur Leukocyte Esterase Trace Urine WBC (Auto) 5 Urine RBC (Auto) 2 Ur Epithelial Cells Rare Urine Bacteria Rare Hyaline Casts 2 Urine Mucus Rare Blood Type A POSITIVE Antibody Screen Negative ASSESSMENT/PLAN: 82 y/o F w/ PMHx IDDM, HTN, HLD p/w 1 week of LE edema and 1 day of SOB and pleuritic pain. Found to have elevated BNP in ED, admitted for likely acute exacerbation of CHF. #CHF exacerbation -not previously diagnosed -CXR c/w pulm congestion -BNP 2376, Trop neg, EKG benign -cardiology consulted (Dr. Haley) -echo ordered -Lasix 40 IV daily -home anti-hypertensive regimen #calf tenderness b/l -LE Duplex ordered #back pain -lumbosacral XR ordered #HTN -home regimen #HLD -home regimen #DM -SSI -BGM #FEN -no IVF -monitor and replete as needed -diabetic diet #DVT -heparin subq #dispo -admit to tele Visit type - Emergency Visit Emergency Visit: Yes Care time: The patient presented to the Emergency Department on the above date and was hospitalized for further evaluation of their emergent condition. - New Patient This patient is new to me today: Yes Date on this admission: 01/01/18 - Critical Care Critical Care patient: No Hospitalist Screening - Colonoscopy Questionnaire Colonoscopy Questionnaire: Colonoscopy Questionnaire - Patient: 50 - 75 years old and never had a screening colonoscopy: Unknown History of colon or rectal polyps, or CA: Unknown History of IBD, Crohn's disease or UC: Unknown History of abdominal radiation therapy as a child: Unknown - Relative: 1 with colon or rectal CA, or polyps at age 60 or younger: Unknown Colon or rectal CA diagnosed at age 45 or younger: Unknown Multiple relatives with colon or rectal CA: Unknown - Outcome: Screening Result: Negative Screen
--- NOTE | 2018-01-01 06:42 | PN ---
Teaching Attending Note Name of Resident: Sheng Christensen ATTENDING PHYSICIAN STATEMENT I saw and evaluated the patient. I reviewed the resident's note and discussed the case with the resident. I agree with the resident's findings and plan as documented. SUBJECTIVE: OBJECTIVE: ASSESSMENT AND PLAN: 82 y/o female presnted with 2 wks worsening lower ext edema and SOB, patient family stated that this is the first time she has these symptoms admit patient for an acute decompensated heart failure newly diagnosed plan: - IV furosemide 40mg q12hrs - start carvidilol 6.25mg daily titrate to optimal HR of 60-70 - cardiology evaluation - echocardiogram - start patient on lisinorpril 5mg daily titrate to SBP 110-120 - admit to tele
[2018-01-01] MEDS: HEPARIN NA (PORCINE) 5,000 UNITS/ML 1ML VIAL SQ SCH ×3 (09:28→22:15)
[2018-01-01] MEDS: INSULIN SLIDING SCALE (NOVOLOG) 1 VIAL SQ SCH ×4 (09:29→22:30)
[2018-01-01] MEDS: FUROSEMIDE 40 MG/4 ML INJECTABLE VIAL IVPUSH SCH (10:30)
[2018-01-01] MEDS: LOSARTAN POTASSIUM 50 MG TABLET (FP) PO SCH (10:30)
[2018-01-01] MEDS: PANTOPRAZOLE 40 MG TABLET (FP) PO SCH (10:30)
[2018-01-01] MEDS: ATENOLOL 50 MG TABLET (FP) PO SCH (10:30)
[2018-01-01] MEDS: amLODIPine BESYLATE 10 MG TABLET (FP) PO SCH (10:30)
--- NOTE | 2018-01-01 11:26 | CONSULT ---
Consult Consult Specialty:: Cardiology Referred by:: Medicine Reason for Consultation:: Dyspnea and chest pain - History of Present Illness Chief Complaint: Dyspnea and chest pain History of Present Illness: 82 yo female No known cardiology follow up Known h/o DM and hypertension Now admitted for 1 day h/o sudden onset of dyspnea and chest pain that occurred while watching TV Reports some throat tightness with exertion leading up to yesterday Currently chest pain free in ED In ED Trop neg x 1, BNP 2376 - History Source History Provided By: Patient Limitations to Obtaining History: No Limitations - Past Medical History Cardio/Vascular: Yes: HTN Endocrine: Yes: Diabetes Mellitus (Insulin dependent ) - Past Surgical History Past Surgical History: Yes: Hysterectomy, Oopherectomy - Alcohol/Substance Use Hx Alcohol Use: No - Smoking History Smoking history: Never smoked Have you smoked in the past 12 months: No - Social History History of Recent Travel: No Home Medications - Allergies Allergies/Adverse Reactions: Allergies Allergy/AdvReac Type Severity Reaction Status Date / Time No Known Allergies Allergy Verified 01/01/18 03:15 - Home Medications Home Medications: Ambulatory Orders Insulin (LOG) Aspart [NovoLOG -] 0 unit SQ DAILY 10/03/16 Atorvastatin Ca [Lipitor] 20 mg PO HS #30 tablet MDD 1 10/05/16 Bacitracin - [Bacitracin Topical Ointment -] 1 applic TP DAILY #1 tube MDD 1 Insulin (Levemir) [Levemir Vial] 15 units SQ AM #100 ml MDD 15 unit 10/05/16 Amlodipine Besylate [Norvasc -] 10 mg PO DAILY 10/04/17 Atenolol [Tenormin] 50 mg PO DAILY 10/07/17 Losartan Potassium [Cozaar -] 50 mg PO DAILY 10/07/17 Pantoprazole Sodium 40 mg PO DAILY 10/07/17 Tramadol HCl [Ultram] 50 mg PO HS PRN 10/07/17 Family Disease History - Family Disease History Family History: Unremarkable Review of Systems - Review of Systems Constitutional: reports: No Symptoms, Chills, Diaphoresis, Fever, Lethargy, Loss of Appetite, Malaise, Night Sweats, Unintentional Wgt. Loss, Weakness, Other Eyes: reports: No Symptoms, Blind Spots, Blurred Vision, Double Vision, Eye Pain , Floaters, Photophobia, Recent Change in Vision, Other HENT: reports: No Symptoms, Difficult Swallowing, Ear Discharge, Ear Pain, Epistaxis, Gingival Bleeding, Hearing Loss, Mouth Swelling, Nasal Congestion, Ocular Prosthesis, Throat Pain, Toothache, Ringing in Ears, Other Neck: reports: No Symptoms, Decreased ROM, Lumps, Pain on Movement, Stiffness, Swollen Glands, Tenderness, Other Cardiovascular: reports: Chest Pain Respiratory: reports: SOB Gastrointestinal: denies: No Symptoms, Abdominal Pain, Bloating, Constipation, Diarrhea, Dysphagia, Indigestion, Melena, Nausea, Rectal Bleeding, Vomiting, Vomiting Blood, Other Integumentary: denies: No Symptoms, Blister, Bruising, Change in Color, Eczema, Erythema, Incision, Lesions, Lump, Pallor, Pruritis, Rash, Wound, Other Physical Exam Vital Signs: Vital Signs Temperature 98.1 F 01/01/18 10:30 Pulse Rate 65 01/01/18 10:30 Respiratory Rate 18 01/01/18 10:30 Blood Pressure 153/78 01/01/18 10:30 O2 Sat by Pulse Oximetry (%) 98 01/01/18 10:30 Constitutional: Yes: Well Nourished, No Distress Eyes: Yes: WNL HENT: Yes: WNL Neck: Yes: WNL Cardiovascular: Yes: Regular Rate and Rhythm Respiratory: Yes: CTA Bilaterally Gastrointestinal: Yes: WNL Musculoskeletal: Yes: WNL Extremities: Yes: WNL Edema: Yes Edema: LLE: 2+, RLE: 2+ Labs: CBC, BMP 01/01/18 04:04 01/01/18 04:10 Imaging - Results EKG: Image Reviewed (01/01/2018 at 02:50 NSR at 69 with anteroseptal Qs.) Assessment/Plan 82 yo female with HTN and DM now with chest pain and dyspnea 1) CP -Given CV risk profile and abnormal ECG suggestive of prior anteroseptal OR, would further risk stratify with stress MPI -Agree with admission 2) Dyspnea -Elevated BNP -Would given lasix 20mg IV -ECho to assess LV function (no prior)
--- NOTE | 2018-01-01 12:04 | PN ---
Progress Note, Physician History of Present Illness: 82 y/o F w/ PMHx IDDM, HTN, HLD p/w 1 week of LE edema and 1 day of SOB and pleuritic pain. Found to have elevated BNP in ED, admitted for likely acute exacerbation of CHF. - Current Medication List Current Medications: Active Medications Amlodipine Besylate (Norvasc -) 10 mg PO DAILY [facility] Last Admin: 01/01/18 10:30 Dose: 10 mg Atenolol (Tenormin -) 50 mg PO DAILY [facility] Last Admin: 01/01/18 10:30 Dose: 50 mg Atorvastatin Calcium (Lipitor -) 20 mg PO HS [facility] Furosemide (Lasix Injection -) 40 mg IVPUSH DAILY [facility] Last Admin: 01/01/18 10:30 Dose: 40 mg Heparin Sodium (Porcine) (Heparin -) 5,000 unit SQ TID [facility] Last Admin: 01/01/18 09:28 Dose: 5,000 unit Insulin Aspart (Novolog Vial Sliding Scale -) 1 vial SQ ACHS [facility]; Protocol Last Admin: 01/01/18 09:29 Dose: Not Given Losartan Potassium (Cozaar -) 50 mg PO DAILY [facility] Last Admin: 01/01/18 10:30 Dose: 50 mg Pantoprazole Sodium (Protonix -) 40 mg PO DAILY [facility] Last Admin: 01/01/18 10:30 Dose: 40 mg - Objective Vital Signs: Vital Signs Temperature 98.1 F 01/01/18 10:30 Pulse Rate 65 01/01/18 10:30 Respiratory Rate 18 01/01/18 10:30 Blood Pressure 153/78 01/01/18 10:30 O2 Sat by Pulse Oximetry (%) 98 01/01/18 10:30 Cardiovascular: Yes: S1, S2 Respiratory: Yes: On Nasal O2, Rales Gastrointestinal: Yes: Normal Bowel Sounds, Soft Labs: CBC, BMP 01/01/18 04:04 01/01/18 04:10 INR, PTT INR 0.99 (0.83-1.09) 01/01/18 04:10 Problem List - Problems (1) CHF (congestive heart failure) Assessment/Plan: -CXR c/w pulm congestion -BNP 2376, Trop neg, EKG benign -cardiology consulted -echo -Lasix 40 IV daily -Duplex neg -Dvt prophylaxis Code(s): I50.9 - HEART FAILURE, UNSPECIFIED (2) Diabetes Assessment/Plan: -SSI -BGM Code(s): E11.9 - TYPE 2 DIABETES MELLITUS WITHOUT COMPLICATIONS (3) HTN (hypertension) Assessment/Plan: Home meds Code(s): I10 - ESSENTIAL (PRIMARY) HYPERTENSION
[2018-01-01] MEDS ORDERED: INSULIN (NOVOLOG) ASPART 100 UNITS/ML 10ML VIAL ONE ×2 (17:26→22:49)
[2018-01-01] MEDS ORDERED: ATORVASTATIN CA 10 MG TABLET (FP) ONE (22:07)
[2018-01-01] MEDS: ATORVASTATIN CA 20 MG TABLET (FP) PO SCH (22:15)
[2018-01-02] MEDS: HEPARIN NA (PORCINE) 5,000 UNITS/ML 1ML VIAL SQ SCH ×3 (06:15→22:03)
[2018-01-02] MEDS ORDERED: HEPARIN NA (PORCINE) 5,000 UNITS/ML 1ML VIAL ONE (06:19)
[2018-01-02] MEDS ORDERED: INSULIN (NOVOLOG) ASPART 100 UNITS/ML 10ML VIAL ONE (06:20)
[2018-01-02 06:37] LABS: BASO % 0.7 % (0-2.0); EOS % 4.1 % (0-4.5); HEMOGLOBIN 11.2 GM/dL (10.7-15.3); LYMPH % 22.1 % (8-40); MCH 28.6 pg (25.7-33.7); MEAN CELL VOLUME 86.5 fl (80-96); MEAN PLT VOLUME 8.5 fl (7.5-11.1); MONO % 10.7 % (3.8-10.2); NEUT % 62.4 % (42.8-82.8); PLATELET COUNT 165 K/MM3 (134-434); RBC 3.93 M/mm3 (3.60-5.2); RDW 15.1 % (11.6-15.6); WHITE BLOOD COUNT 6.7 K/mm3 (4.0-10.0)
[2018-01-02] MEDS: INSULIN SLIDING SCALE (NOVOLOG) 1 VIAL SQ SCH ×4 (07:00→22:03)
[2018-01-02 07:10] LABS: MAGNESIUM 1.9 mg/dL (1.8-2.4)
--- NOTE | 2018-01-02 10:37 | EKG ---
Test Reason : Blood Pressure : / mmHG Vent. Rate : 069 BPM Atrial Rate : 069 BPM P-R Int : 196 ms QRS Dur : 092 ms QT Int : 422 ms P-R-T Axes : 079 025 -79 degrees QTc Int : 452 ms NORMAL SINUS RHYTHM LOW VOLTAGE QRS CANNOT RULE OUT ANTEROSEPTAL INFARCT (CITED ON OR BEFORE 02-OCT-2016) POOR R WAVE PROGRESSION ABNORMAL ECG WHEN COMPARED WITH ECG OF 09-OCT-2017 08:56, LIKELY NO SIGNIFICANT CHANGES Confirmed by MARCELLE GARCIA MD ([id number]) on 01/02/2018 10:36:47 AM Referred By: Confirmed By:MARCELLE GARCIA MD
[2018-01-02] MEDS ORDERED: REGADENOSON 0.4 MG/5 ML PRE-FILLED SYRINGE IVPUSH ONE ×2 (11:15→12:00)
--- NOTE | 2018-01-02 12:20 | ECHO ---
Name: FRANKJAMESONS Exam:Adult Echocardiogram Study Date: 01/02/2018 08:12 AM Age: 82 yrs Reason For Study: CHF Height: 62 in Weight: 165 lb BSA: 1.8 m2 MMode/2D Measurements & Calculations IVSd: 1.2 cm Ao root diam: 2.8 cm LVIDd: 3.5 cm LA dimension: 2.6 cm LVIDs: 2.4 cm LVPWd: 0.92 cm EDV(Teich): 49.8 ml ESV(Teich): 21.2 ml Doppler Measurements & Calculations MV E max steve: 118.0 cm/sec MR max steve: 442.9 cm/sec MV A max steve: 118.7 cm/sec MR max P.5 mmHg MV E/A: 0.99 MV dec time: 0.32 sec TR max steve: 261.3 cm/sec Med Peak E' Steve: 5.4 cm/sec TR max P.8 mmHg Med E/e': 21.7 Lat Peak E' Steve: 6.7 cm/sec Lat E/e': 17.5 PI Vmax: 154.7 cm/sec Procedure A complete two-dimensional transthoracic echocardiogram was performed (2D, M-mode, Doppler and color flow Doppler). Left Ventricle The left ventricle is normal in size. Left ventricular systolic function is normal. Ejection Fraction = 60- 65%. No regional wall motion abnormalities noted. Right Ventricle The right ventricle is normal size. The right ventricular systolic function is normal. Atria The left atrial size is normal. Right atrial size is normal. Mitral Valve There is mild mitral annular calcification. There is mild to moderate mitral regurgitation. Tricuspid Valve The tricuspid valve is normal in structure and function. There is mild tricuspid regurgitation. Pulmo nary artery systolic pressure is at least 38 mmHg assuming RA pressure of 3 mmHg (normal IVC with >50% col lapse). Aortic Valve The aortic valve is normal in structure and function. No aortic regurgitation is present. Pulmonic Valve The pulmonic valve is not well visualized. Great Vessels The aortic root is normal size. Pericardium/Pleura Trivial pericardial effusion not hemodynamically significant. There is a pleural effusion present. Interpretation Summary The left ventricle is normal in size. Left ventricular systolic function is normal. No regional wall motion abnormalities noted. Ejection Fraction = 60-65%. The right ventricular systolic function is normal. The left atrial size is normal. Right atrial size is normal. There is mild mitral annular calcification. There is mild to moderate mitral regurgitation. There is mild tricuspid regurgitation. Pulmonary artery systolic pressure is at least 38 mmHg assuming RA pressure of 3 mmHg (normal IVC wit h >50% collapse) Trivial pericardial effusion not hemodynamically significant There is a pleural effusion present. When compared to study dated 11/27/15, valvular regurgitations are as noted Bunny Adam MD 01/02/2018 12:19 PM
--- NOTE | 2018-01-02 12:29 | PN ---
Progress Note (short form) - Note Progress Note: cc: sob, cp s: improving sob, no cp, palps, dizzy, edema improving Current Medications Amlodipine Besylate (Norvasc -) 10 mg PO DAILY [facility] Last Admin: 01/01/18 10:30 Dose: 10 mg Atenolol (Tenormin -) 50 mg PO DAILY [facility] Last Admin: 01/01/18 10:30 Dose: 50 mg Atorvastatin Calcium (Lipitor -) 20 mg PO HS [facility] Last Admin: 01/01/18 22:15 Dose: 20 mg Furosemide (Lasix Injection -) 40 mg IVPUSH DAILY [facility] Last Admin: 01/01/18 10:30 Dose: 40 mg Heparin Sodium (Porcine) (Heparin -) 5,000 unit SQ TID [facility] Last Admin: 01/02/18 06:15 Dose: 5,000 unit Insulin Aspart (Novolog Vial Sliding Scale -) 1 vial SQ ACHS [facility]; Protocol Last Admin: 01/02/18 07:00 Dose: 0.01 unit Losartan Potassium (Cozaar -) 50 mg PO DAILY [facility] Last Admin: 01/01/18 10:30 Dose: 50 mg Pantoprazole Sodium (Protonix -) 40 mg PO DAILY [facility] Last Admin: 01/01/18 10:30 Dose: 40 mg Physical Exam Vital Signs Period Temp Pulse Resp BP Sys/Herrera Pulse Ox Last 24 Hr 97.8 F-99.0 F 68-72 16-18 116-140/61-71 97-100 Constitutional: Yes: Well Nourished, No Distress Eyes: Yes: WNL HENT: Yes: WNL Neck: Yes: WNL Cardiovascular: Yes: Regular Rate and Rhythm Respiratory: Yes: CTA Bilaterally Gastrointestinal: Yes: WNL Musculoskeletal: Yes: WNL Extremities: Yes: WNL Edema: Yes Edema: LLE: 1+, RLE: 1+ Imaging - Results EKG: Image Reviewed (01/01/2018 at 02:50 NSR at 69 with anteroseptal Qs.) echo 12/2017 nl LV size/function, no RWMA, EF 60-65%, mild to mod MR, mild TR, PASP >38mmHg, pleural effusion present Assessment/Plan 82 yo female with HTN and DM now with chest pain and dyspnea Chest pain -Given CV risk profile and abnormal ECG suggestive of prior anteroseptal ND, stress MPI ordered -trop neg x2, EKG with Q waves however no acute changes, unlikely ACS - echo nl function, no RWMA noted Dyspnea, acute diastolic CHF exac - Elevated BNP - receiving IV lasix 40 mg IV daily - nl EF on echo HTN - on home meds losartan, atenolol, amlodipine, continue HLD - on home statin
--- NOTE | 2018-01-02 13:29 | PN ---
Progress Note, Physician Chief Complaint: patient seen and examined after stress test says no more chest pain breathing is better - Current Medication List Current Medications: Active Medications Amlodipine Besylate (Norvasc -) 10 mg PO DAILY [facility] Last Admin: 01/01/18 10:30 Dose: 10 mg Atenolol (Tenormin -) 50 mg PO DAILY [facility] Last Admin: 01/01/18 10:30 Dose: 50 mg Atorvastatin Calcium (Lipitor -) 20 mg PO HS [facility] Last Admin: 01/01/18 22:15 Dose: 20 mg Furosemide (Lasix Injection -) 40 mg IVPUSH DAILY [facility] Last Admin: 01/01/18 10:30 Dose: 40 mg Heparin Sodium (Porcine) (Heparin -) 5,000 unit SQ TID [facility] Last Admin: 01/02/18 06:15 Dose: 5,000 unit Insulin Aspart (Novolog Vial Sliding Scale -) 1 vial SQ ACHS [facility]; Protocol Last Admin: 01/02/18 07:00 Dose: 0.01 unit Losartan Potassium (Cozaar -) 50 mg PO DAILY [facility] Last Admin: 01/01/18 10:30 Dose: 50 mg Pantoprazole Sodium (Protonix -) 40 mg PO DAILY [facility] Last Admin: 01/01/18 10:30 Dose: 40 mg - Objective Vital Signs: Vital Signs Temperature 97.8 F 01/02/18 07:09 Pulse Rate 72 01/02/18 07:09 Respiratory Rate 18 01/02/18 07:09 Blood Pressure 116/62 01/02/18 07:09 O2 Sat by Pulse Oximetry (%) 100 01/02/18 07:09 Constitutional: Yes: Calm Cardiovascular: Yes: Regular Rate and Rhythm, S1, S2 Respiratory: Yes: CTA Bilaterally, Diminished, On Nasal O2 Gastrointestinal: Yes: Normal Bowel Sounds, Soft Edema: Yes Neurological: Yes: Alert, Oriented Labs: CBC, BMP 01/02/18 05:55 01/01/18 04:10 INR, PTT INR 0.99 (0.83-1.09) 01/01/18 04:10 Problem List - Problems (1) Shortness of breath Assessment/Plan: stress test pending iv lasix CE 2 sets negative dvt ppx Code(s): R06.02 - SHORTNESS OF BREATH (2) CHF (congestive heart failure) Assessment/Plan: echo done shows- Ejection fraction 60% and normal left ventricle size iv lasix daily monitor electrolytes doppler negative stress test done today awaiting results cardiology on board dvt ppx losartan and norvasc Code(s): I50.9 - HEART FAILURE, UNSPECIFIED (3) Diabetes Assessment/Plan: bgm sliding scale [id number] Code(s): E11.9 - TYPE 2 DIABETES MELLITUS WITHOUT COMPLICATIONS Qualifiers: Diabetes mellitus type: type 2 (4) Hyperlipidemia Assessment/Plan: statin lipid profile noted Code(s): E78.5 - HYPERLIPIDEMIA, UNSPECIFIED (5) Renal insufficiency Assessment/Plan: renal sono renal consult Code(s): N28.9 - DISORDER OF KIDNEY AND URETER, UNSPECIFIED
[2018-01-02] MEDS: PANTOPRAZOLE 40 MG TABLET (FP) PO SCH (15:49)
[2018-01-02] MEDS: amLODIPine BESYLATE 10 MG TABLET (FP) PO SCH (15:49)
[2018-01-02] MEDS: ATENOLOL 50 MG TABLET (FP) PO SCH (15:49)
[2018-01-02] MEDS: FUROSEMIDE 40 MG/4 ML INJECTABLE VIAL IVPUSH SCH (15:50)
[2018-01-02] MEDS: LOSARTAN POTASSIUM 50 MG TABLET (FP) PO SCH (15:50)
[2018-01-02] MEDS: ATORVASTATIN CA 20 MG TABLET (FP) PO SCH (22:03)
[2018-01-03] MEDS: INSULIN SLIDING SCALE (NOVOLOG) 1 VIAL SQ SCH ×4 (06:28→21:03)
[2018-01-03] MEDS: HEPARIN NA (PORCINE) 5,000 UNITS/ML 1ML VIAL SQ SCH ×3 (06:29→21:02)
[2018-01-03 07:05] LABS: BASO % 0.7 % (0-2.0); EOS % 3.6 % (0-4.5); HEMATOCRIT 33.4 % (32.4-45.2); LYMPH % 28.1 % (8-40); MCH 28.6 pg (25.7-33.7); MCHC 32.9 g/dl (32.0-36.0); MEAN PLT VOLUME 8.7 fl (7.5-11.1); MONO % 10.7 % (3.8-10.2); NEUT % 56.9 % (42.8-82.8); PLATELET COUNT 158 K/MM3 (134-434); RBC 3.84 M/mm3 (3.60-5.2); RDW 14.8 % (11.6-15.6); WHITE BLOOD COUNT 5.8 K/mm3 (4.0-10.0)
[2018-01-03 07:43] LABS: ALBUMIN 2.4 g/dl (3.4-5.0); ANION GAP 9 MMOL/L (8-16); BLOOD UREA NITROGEN 28 mg/dL (7-18); CALCIUM 8.6 mg/dL (8.5-10.1); CHLORIDE 107 mmol/L (98-107); CO2 29 mmol/L (21-32); GLUCOSE,RANDOM 141 mg/dL (74-106); POTASSIUM 3.7 mmol/L (3.5-5.1); SODIUM 145 mmol/L (136-145)
[2018-01-03 07:48] LABS: ALK PHOS 51 U/L (45-117); BILIRUBIN,TOTAL 0.6 mg/dL (0.2-1.0); CREATININE 1.3 mg/dL (0.55-1.02); SGOT/AST 16 U/L (15-37); SGPT/ALT 12 U/L (12-78)
--- NOTE | 2018-01-03 08:30 | PN ---
Progress Note, Physician - Current Medication List Current Medications: Active Medications Amlodipine Besylate (Norvasc -) 10 mg PO DAILY [facility] Last Admin: 01/02/18 15:49 Dose: 10 mg Atenolol (Tenormin -) 50 mg PO DAILY [facility] Last Admin: 01/02/18 15:49 Dose: 50 mg Atorvastatin Calcium (Lipitor -) 20 mg PO HS [facility] Last Admin: 01/02/18 22:03 Dose: 20 mg Furosemide (Lasix Injection -) 40 mg IVPUSH DAILY [facility] Last Admin: 01/02/18 15:50 Dose: 40 mg Heparin Sodium (Porcine) (Heparin -) 5,000 unit SQ TID [facility] Last Admin: 01/03/18 06:29 Dose: 5,000 unit Insulin Aspart (Novolog Vial Sliding Scale -) 1 vial SQ ACHS [facility]; Protocol Last Admin: 01/03/18 06:28 Dose: Not Given Losartan Potassium (Cozaar -) 50 mg PO DAILY [facility] Last Admin: 01/02/18 15:50 Dose: 50 mg Pantoprazole Sodium (Protonix -) 40 mg PO DAILY [facility] Last Admin: 01/02/18 15:49 Dose: 40 mg - Objective Vital Signs: Vital Signs Temperature 98 F 01/03/18 06:00 Pulse Rate 71 01/03/18 06:00 Respiratory Rate 18 01/03/18 06:00 Blood Pressure 141/66 01/03/18 06:00 O2 Sat by Pulse Oximetry (%) 99 01/02/18 20:30 Cardiovascular: Yes: S1, S2 Respiratory: Yes: Rales Gastrointestinal: Yes: Normal Bowel Sounds, Soft Labs: CBC, BMP 01/03/18 05:30 01/03/18 05:30 INR, PTT INR 0.99 (0.83-1.09) 01/01/18 04:10 Problem List - Problems (1) CHF (congestive heart failure) Assessment/Plan: echo done shows- Ejection fraction 60% and normal left ventricle size iv lasix daily monitor electrolytes doppler negative stress test done today awaiting results cardiology on board dvt ppx losartan and norvasc ct chest Code(s): I50.9 - HEART FAILURE, UNSPECIFIED (2) Diabetes Assessment/Plan: -[facility] Code(s): E11.9 - TYPE 2 DIABETES MELLITUS WITHOUT COMPLICATIONS Qualifiers: Diabetes mellitus type: type 2 (3) HTN (hypertension) Assessment/Plan: Home meds Code(s): I10 - ESSENTIAL (PRIMARY) HYPERTENSION (4) Renal insufficiency Assessment/Plan: renal sono noted no hydro renal consult Code(s): N28.9 - DISORDER OF KIDNEY AND URETER, UNSPECIFIED
[2018-01-03] MEDS: amLODIPine BESYLATE 10 MG TABLET (FP) PO SCH (09:45)
[2018-01-03] MEDS: PANTOPRAZOLE 40 MG TABLET (FP) PO SCH (09:45)
[2018-01-03] MEDS: ATENOLOL 50 MG TABLET (FP) PO SCH (09:45)
[2018-01-03] MEDS: FUROSEMIDE 40 MG/4 ML INJECTABLE VIAL IVPUSH SCH (09:45)
[2018-01-03] MEDS: LOSARTAN POTASSIUM 50 MG TABLET (FP) PO SCH (09:45)
--- NOTE | 2018-01-03 09:56 | PN ---
Progress Note (short form) - Note Progress Note: cc: sob, cp s: improving sob, no cp, palps, dizzy, edema improving Current Medications Amlodipine Besylate (Norvasc -) 10 mg PO DAILY [facility] Last Admin: 01/03/18 09:45 Dose: 10 mg Atenolol (Tenormin -) 50 mg PO DAILY [facility] Last Admin: 01/03/18 09:45 Dose: 50 mg Atorvastatin Calcium (Lipitor -) 20 mg PO HS [facility] Last Admin: 01/02/18 22:03 Dose: 20 mg Furosemide (Lasix Injection -) 40 mg IVPUSH DAILY [facility] Last Admin: 01/03/18 09:45 Dose: 40 mg Heparin Sodium (Porcine) (Heparin -) 5,000 unit SQ TID [facility] Last Admin: 01/03/18 06:29 Dose: 5,000 unit Insulin Aspart (Novolog Vial Sliding Scale -) 1 vial SQ ACHS [facility]; Protocol Last Admin: 01/03/18 06:28 Dose: Not Given Losartan Potassium (Cozaar -) 50 mg PO DAILY [facility] Last Admin: 01/03/18 09:45 Dose: 50 mg Pantoprazole Sodium (Protonix -) 40 mg PO DAILY [facility] Last Admin: 01/03/18 09:45 Dose: 40 mg Physical Exam Vital Signs Period Temp Pulse Resp BP Sys/Herrera Pulse Ox Last 24 Hr 97.7 F-98.8 F 67-79 14-20 121-141/64-72 99-100 Constitutional: Yes: Well Nourished, No Distress Eyes: Yes: WNL HENT: Yes: WNL Neck: Yes: WNL Cardiovascular: Yes: Regular Rate and Rhythm Respiratory: rales at bases bilaterally Gastrointestinal: Yes: WNL Musculoskeletal: Yes: WNL Extremities: Yes: WNL Edema: Yes Edema: LLE: 1+, RLE: 1+ Imaging - Results EKG: Image Reviewed (01/01/2018 at 02:50 NSR at 69 with anteroseptal Qs.) echo 12/2017 nl LV size/function, no RWMA, EF 60-65%, mild to mod MR, mild TR, PASP >38mmHg, pleural effusion present mibi 12/2017 neg stress, small zone of anteroapical fixed defect c/w soft tissue attenuation, normal LV function pre and post stress CT chest small to mod bilateral pleural effusions, L>R Assessment/Plan 82 yo female with HTN and DM now with chest pain and dyspnea Chest pain -trop neg x2, EKG with Q waves however no acute changes, unlikely ACS - echo nl function, no RWMA noted, no ischemia noted on stress test Dyspnea, acute diastolic CHF exac - Elevated BNP, tanika pleural effusions - receiving IV lasix 40 mg IV daily, would continue - BUN/Cr improving - daily weights, I/O monitoring, Cr trending - nl EF on echo HTN - on home meds losartan, atenolol, amlodipine, continue HLD - on home statin
[2018-01-03] MEDS ORDERED: INSULIN (NOVOLOG) ASPART 100 UNITS/ML 10ML VIAL ONE (12:01)
--- NOTE | 2018-01-03 13:58 | CONSULT ---
Consult - text type - Consultation Consultation Note: Renal Consult for ADRIEN vs CKD This is a 82 year old woman with hx of Hypertension and DM who presented with CP and SOB and admitted for R/o ACS and CHF exacerbation and found to have elevated Cr. Pt denies any hx of CKD or kidney stones. No recent contrast exposure. No flank pain, dysuria, hematuira. No recent NSAID use. Pt complains of pain in right hip with radation to back and down the leg. She does not a hx of fall about 1 week prior to admission. No fever, chills, N/V/D, KOCH, blurry vision, AMS. PMhx: as above Allergies: NKDA Family Hx: NC Social Hx: No T/A/D ROS: as per HPI, all other pertinent ros negative Home Medications Medication Instructions Recorded Insulin (LOG) Aspart [NovoLOG -] 0 unit SQ DAILY 10/03/16 Atorvastatin Ca [Lipitor] 20 mg PO HS #30 tablet MDD 1 10/05/16 Bacitracin - [Bacitracin Topical 1 applic TP DAILY #1 tube MDD 1 10/05/16 Ointment -] Insulin (Levemir) [Levemir Vial] 15 units SQ AM #100 ml MDD 15 unit 10/05/16 Amlodipine Besylate [Norvasc -] 10 mg PO DAILY 10/04/17 Atenolol [Tenormin] 50 mg PO DAILY 10/07/17 Losartan Potassium [Cozaar -] 50 mg PO DAILY 10/07/17 Pantoprazole Sodium 40 mg PO DAILY 10/07/17 Tramadol HCl [Ultram] 50 mg PO HS PRN 10/07/17 Vital Signs Temperature 98 F 01/03/18 06:00 Pulse Rate 71 01/03/18 06:00 Respiratory Rate 18 01/03/18 06:00 Blood Pressure 141/66 01/03/18 06:00 O2 Sat by Pulse Oximetry (%) 99 01/02/18 20:30 Intake & Output 12/31/17 01/01/18 01/02/18 01/03/18 23:59 23:59 23:59 23:59 Intake Total 120 190 330 Balance 120 190 330 Weight 74.843 kg 74.843 kg Midl distress from pain Neck supple no JVD RRR, no M/R Dec BS at lung bases, no rales soft NT/ND Abd No bladder distension Trace LE edema, no clubbing or cyanosis no hematoma on right hip CBC, BMP 01/03/18 05:30 01/03/18 05:30 Current Medications Amlodipine Besylate (Norvasc -) 10 mg PO DAILY [facility] Last Admin: 01/03/18 09:45 Dose: 10 mg Atenolol (Tenormin -) 50 mg PO DAILY [facility] Last Admin: 01/03/18 09:45 Dose: 50 mg Atorvastatin Calcium (Lipitor -) 20 mg PO HS [facility] Last Admin: 01/02/18 22:03 Dose: 20 mg Furosemide (Lasix Injection -) 40 mg IVPUSH DAILY [facility] Last Admin: 01/03/18 09:45 Dose: 40 mg Heparin Sodium (Porcine) (Heparin -) 5,000 unit SQ TID [facility] Last Admin: 01/03/18 13:19 Dose: 5,000 unit Insulin Aspart (Novolog Vial Sliding Scale -) 1 vial SQ ACHS [facility]; Protocol Last Admin: 01/03/18 13:19 Dose: 4 unit Losartan Potassium (Cozaar -) 50 mg PO DAILY [facility] Last Admin: 01/03/18 09:45 Dose: 50 mg Pantoprazole Sodium (Protonix -) 40 mg PO DAILY [facility] Last Admin: 01/03/18 09:45 Dose: 40 mg 82 year old woman with hx of Hypertension and DM who presented with CP and SOB and admitted for R/o ACS and CHF exacerbation and found to have elevated Cr. #ADRIEN secondary to CRS vs. 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
[2018-01-03] MEDS: ATORVASTATIN CA 20 MG TABLET (FP) PO SCH (21:02)
[2018-01-04] MEDS: HEPARIN NA (PORCINE) 5,000 UNITS/ML 1ML VIAL SQ SCH ×3 (06:38→21:10)
[2018-01-04] MEDS: INSULIN SLIDING SCALE (NOVOLOG) 1 VIAL SQ SCH ×4 (06:38→21:11)
[2018-01-04 07:47] LABS: ALBUMIN 2.6 g/dl (3.4-5.0); ALK PHOS 53 U/L (45-117); ANION GAP 10 MMOL/L (8-16); BILIRUBIN,TOTAL 0.5 mg/dL (0.2-1.0); BLOOD UREA NITROGEN 29 mg/dL (7-18); CALCIUM 8.5 mg/dL (8.5-10.1); CHLORIDE 105 mmol/L (98-107); CO2 30 mmol/L (21-32); CREATININE 1.4 mg/dL (0.55-1.02); GLUCOSE,RANDOM 152 mg/dL (74-106); MAGNESIUM 1.9 mg/dL (1.8-2.4); PHOSPHOROUS 3.3 mg/dL (2.5-4.9); POTASSIUM 3.6 mmol/L (3.5-5.1); SGOT/AST 15 U/L (15-37); SGPT/ALT 14 U/L (12-78); SODIUM 145 mmol/L (136-145); TOT PROT 6.4 g/dl (6.4-8.2)
--- NOTE | 2018-01-04 07:50 | PN ---
Progress Note, Physician History of Present Illness: 82 y/o F w/ PMHx IDDM, HTN, HLD p/w 1 week of LE edema and 1 day of SOB and pleuritic pain. Found to have elevated BNP in ED, admitted for likely acute exacerbation of CHF. Less sob c/o rt hip pain and thigh numbness - Current Medication List Current Medications: Active Medications Amlodipine Besylate (Norvasc -) 10 mg PO DAILY [facility] Last Admin: 01/03/18 09:45 Dose: 10 mg Atenolol (Tenormin -) 50 mg PO DAILY [facility] Last Admin: 01/03/18 09:45 Dose: 50 mg Atorvastatin Calcium (Lipitor -) 20 mg PO HS [facility] Last Admin: 01/03/18 21:02 Dose: 20 mg Furosemide (Lasix Injection -) 40 mg IVPUSH DAILY [facility] Last Admin: 01/03/18 09:45 Dose: 40 mg Heparin Sodium (Porcine) (Heparin -) 5,000 unit SQ TID [facility] Last Admin: 01/04/18 06:38 Dose: 5,000 unit Insulin Aspart (Novolog Vial Sliding Scale -) 1 vial SQ ACHS [facility]; Protocol Last Admin: 01/04/18 06:38 Dose: Not Given Losartan Potassium (Cozaar -) 50 mg PO DAILY [facility] Last Admin: 01/03/18 09:45 Dose: 50 mg Pantoprazole Sodium (Protonix -) 40 mg PO DAILY [facility] Last Admin: 01/03/18 09:45 Dose: 40 mg - Objective Vital Signs: Vital Signs Temperature 98.3 F 01/04/18 06:00 Pulse Rate 66 01/04/18 06:00 Respiratory Rate 20 01/04/18 06:00 Blood Pressure 132/67 01/04/18 06:00 O2 Sat by Pulse Oximetry (%) 98 01/03/18 21:00 Cardiovascular: Yes: S1, S2 Respiratory: Yes: Rales (at the bases) Gastrointestinal: Yes: Normal Bowel Sounds, Soft Edema: No Labs: CBC, BMP 01/03/18 05:30 INR, PTT INR 0.99 (0.83-1.09) 01/01/18 04:10 Problem List - Problems (1) CHF (congestive heart failure) Assessment/Plan: echo done shows- Ejection fraction 60% and normal left ventricle size iv lasix daily monitor electrolytes doppler negative stress test done today awaiting results cardiology on board dvt ppx losartan and norvasc ct chest Code(s): I50.9 - HEART FAILURE, UNSPECIFIED (2) Diabetes Assessment/Plan: -SSI -BGM Code(s): E11.9 - TYPE 2 DIABETES MELLITUS WITHOUT COMPLICATIONS Qualifiers: Diabetes mellitus type: type 2 (3) HTN (hypertension) Assessment/Plan: Home meds Code(s): I10 - ESSENTIAL (PRIMARY) HYPERTENSION (4) Renal insufficiency Assessment/Plan: renal sono noted no hydro renal consult Code(s): N28.9 - DISORDER OF KIDNEY AND URETER, UNSPECIFIED (5) Radiculopathy of lumbosacral region Assessment/Plan: -Xray of LS -EMG -PT Code(s): M54.17 - RADICULOPATHY, LUMBOSACRAL REGION
[2018-01-04] MEDS: LOSARTAN POTASSIUM 50 MG TABLET (FP) PO SCH (10:05)
[2018-01-04] MEDS: ATENOLOL 50 MG TABLET (FP) PO SCH (10:05)
[2018-01-04] MEDS: PANTOPRAZOLE 40 MG TABLET (FP) PO SCH (10:05)
[2018-01-04] MEDS: amLODIPine BESYLATE 10 MG TABLET (FP) PO SCH (10:05)
[2018-01-04] MEDS: FUROSEMIDE 40 MG/4 ML INJECTABLE VIAL IVPUSH SCH (10:05)
[2018-01-04 11:02] LABS: URINE APPEARANCE CLEAR; URINE BILIRUBIN NEGATIVE (<2.0 mg/dL); URINE COLOR LTYELLOW; URINE GLUCOSE (UA) 1+ (NEGATIVE); URINE KETONE NEGATIVE (NEGATIVE); URINE NITRITE NEGATIVE (NEGATIVE); URINE UROBILINOGEN NEGATIVE mg/dL (0.2-1.0)
[2018-01-04 11:06] LABS: URINE LEUK ESTERASE 1+ (NEGATIVE); URINE PROTEIN 2+ (NEGATIVE)
[2018-01-04 11:07] LABS: EPI CELLS RARE /HPF (FEW)
[2018-01-04] MEDS: GABAPENTIN 100 MG CAPSULE (FP) PO SCH ×2 (14:10→21:10)
--- NOTE | 2018-01-04 16:20 | PN ---
Progress Note (short form) - Note Progress Note: cc: sob, cp s: improving sob, no cp, palps, dizzy, edema improving Current Medications Generic Name Dose Route Start Last Admin Trade Name Jose A PRN Reason Stop Dose Admin Amlodipine Besylate 10 mg 01/01/18 10:00 01/04/18 10:05 Norvasc - PO 10 mg DAILY [facility] Administration Atenolol 50 mg 01/01/18 10:00 01/04/18 10:05 Tenormin - PO 50 mg DAILY [facility] Administration Atorvastatin Calcium 20 mg 01/01/18 22:00 01/03/18 21:02 Lipitor - PO 20 mg HS [facility] Administration Furosemide 40 mg 01/01/18 10:00 01/04/18 10:05 Lasix Injection - IVPUSH 40 mg DAILY [facility] Administration Gabapentin 100 mg 01/04/18 14:00 01/04/18 14:10 Neurontin - PO 100 mg TID [facility] Administration Heparin Sodium (Porcine) 5,000 unit 01/01/18 06:15 01/04/18 14:10 Heparin - SQ 5,000 unit TID [facility] Administration Insulin Aspart 1 vial 01/01/18 07:00 01/04/18 11:48 Novolog Vial Sliding Scale - SQ 4 unit ACHS [facility] Administration Protocol Losartan Potassium 50 mg 01/01/18 10:00 01/04/18 10:05 Cozaar - PO 50 mg DAILY [facility] Administration Pantoprazole Sodium 40 mg 01/01/18 10:00 01/04/18 10:05 Protonix - PO 40 mg DAILY [facility] Administration Physical Exam Vital Signs Period Temp Pulse Resp BP Sys/Herrera Pulse Ox Last 24 Hr 97.7 F-98.6 F 66-74 18-20 115-142/58-68 98-99 nad no jvd rrr s1s2 no mrg cta bl nl eff aaox3 no le e/c/c abd nt nd pos bs no jaundice diaphoresis Current Medications Generic Name Dose Route Start Last Admin Trade Name Jose A PRN Reason Stop Dose Admin Amlodipine Besylate 10 mg 01/01/18 10:00 01/04/18 10:05 Norvasc - PO 10 mg DAILY [facility] Administration Atenolol 50 mg 01/01/18 10:00 01/04/18 10:05 Tenormin - PO 50 mg DAILY [facility] Administration Atorvastatin Calcium 20 mg 01/01/18 22:00 01/03/18 21:02 Lipitor - PO 20 mg HS [facility] Administration Furosemide 40 mg 01/01/18 10:00 01/04/18 10:05 Lasix Injection - IVPUSH 40 mg DAILY [facility] Administration Gabapentin 100 mg 01/04/18 14:00 01/04/18 14:10 Neurontin - PO 100 mg TID [facility] Administration Heparin Sodium (Porcine) 5,000 unit 01/01/18 06:15 01/04/18 14:10 Heparin - SQ 5,000 unit TID [facility] Administration Insulin Aspart 1 vial 01/01/18 07:00 01/04/18 11:48 Novolog Vial Sliding Scale - SQ 4 unit ACHS [facility] Administration Protocol Losartan Potassium 50 mg 01/01/18 10:00 01/04/18 10:05 Cozaar - PO 50 mg DAILY [facility] Administration Pantoprazole Sodium 40 mg 01/01/18 10:00 01/04/18 10:05 Protonix - PO 40 mg DAILY [facility] Administration EKG: Image Reviewed (01/01/2018 at 02:50 NSR at 69 with anteroseptal Qs.) echo 12/2017 nl LV size/function, no RWMA, EF 60-65%, mild to mod MR, mild TR, PASP >38mmHg, pleural effusion present mibi 12/2017 neg stress, small zone of anteroapical fixed defect c/w soft tissue attenuation, normal LV function pre and post stress CT chest small to mod bilateral pleural effusions, L>R tele: sr Assessment/Plan 82 yo female with HTN and DM now with chest pain and dyspnea Chest pain -trop neg x2, EKG with Q waves however no acute changes, unlikely ACS - echo nl function, no RWMA noted, no ischemia noted on stress test Dyspnea, acute diastolic CHF exac - Elevated BNP, tanika pleural effusions - receiving IV lasix 40 mg IV daily, vol status improving, would continue - BUN/Cr improving - daily weights, I/O monitoring, Cr trending - nl EF on echo HTN - on home meds losartan, atenolol, amlodipine, continue HLD - on home statin
[2018-01-04] MEDS: ATORVASTATIN CA 20 MG TABLET (FP) PO SCH (21:10)
[2018-01-05] MEDS: GABAPENTIN 100 MG CAPSULE (FP) PO SCH ×2 (06:31→13:19)
[2018-01-05] MEDS: HEPARIN NA (PORCINE) 5,000 UNITS/ML 1ML VIAL SQ SCH ×2 (06:31→13:19)
[2018-01-05] MEDS: INSULIN SLIDING SCALE (NOVOLOG) 1 VIAL SQ SCH ×3 (06:32→17:43)
[2018-01-05 08:45] VITALS: BP 106/56; PULSE 74; TEMP 98.9
[2018-01-05] MEDS: LOSARTAN POTASSIUM 50 MG TABLET (FP) PO SCH (11:04)
[2018-01-05] MEDS: amLODIPine BESYLATE 10 MG TABLET (FP) PO SCH (11:04)
[2018-01-05] MEDS: PANTOPRAZOLE 40 MG TABLET (FP) PO SCH (11:04)
[2018-01-05] MEDS: FUROSEMIDE 40 MG/4 ML INJECTABLE VIAL IVPUSH SCH (11:04)
[2018-01-05] MEDS: ATENOLOL 50 MG TABLET (FP) PO SCH (11:05)
--- NOTE | 2018-01-05 11:40 | PN ---
Progress Note, Physician Chief Complaint: acute diastolic CHF exacerbation History of Present Illness: NAD complaining of lower back pian that sometimes radiates to right led. Bartlett has been ongoing for past 1 year. Has been seen by Dr Jimenez-Neuro in the past, lumbar xray showed degenerative arthritis. Breathing okay, no SOB, ambulating to bathroom by herself - Current Medication List Current Medications: Active Medications Amlodipine Besylate (Norvasc -) 10 mg PO DAILY [facility] Last Admin: 01/05/18 11:04 Dose: 10 mg Atenolol (Tenormin -) 50 mg PO DAILY [facility] Last Admin: 01/05/18 11:05 Dose: 50 mg Atorvastatin Calcium (Lipitor -) 20 mg PO HS [facility] Last Admin: 01/04/18 21:10 Dose: 20 mg Furosemide (Lasix Injection -) 40 mg IVPUSH DAILY [facility] Last Admin: 01/05/18 11:04 Dose: 40 mg Gabapentin (Neurontin -) 100 mg PO TID [facility] Last Admin: 01/05/18 06:31 Dose: 100 mg Heparin Sodium (Porcine) (Heparin -) 5,000 unit SQ TID [facility] Last Admin: 01/05/18 06:31 Dose: 5,000 unit Insulin Aspart (Novolog Vial Sliding Scale -) 1 vial SQ [facility]; Protocol Last Admin: 01/05/18 06:32 Dose: 4 unit Losartan Potassium (Cozaar -) 50 mg PO DAILY [facility] Last Admin: 01/05/18 11:04 Dose: 50 mg Pantoprazole Sodium (Protonix -) 40 mg PO DAILY [facility] Last Admin: 01/05/18 11:04 Dose: 40 mg - Objective Vital Signs: Vital Signs Temperature 98.9 F 01/05/18 08:42 Pulse Rate 74 01/05/18 08:42 Respiratory Rate 18 01/05/18 08:42 Blood Pressure 106/56 01/05/18 08:42 O2 Sat by Pulse Oximetry (%) 98 01/05/18 08:39 Constitutional: Yes: Well Nourished, No Distress, Calm Cardiovascular: Yes: Regular Rate and Rhythm Respiratory: Yes: Regular, Rales (BLLL) Gastrointestinal: Yes: Normal Bowel Sounds, Soft Musculoskeletal: Yes: Back Pain Extremities: Yes: WNL Edema: No Peripheral Pulses WNL: Yes Neurological: Yes: Alert, Oriented Psychiatric: Yes: Alert, Oriented Labs: CBC, BMP 01/03/18 05:30 INR, PTT INR 0.99 (0.83-1.09) 01/01/18 04:10 Problem List - Problems (1) CHF (congestive heart failure) Assessment/Plan: -Seen by Cardiology -On IV lasix -repeat CXR today -no SOB -D/C home on PO lasix if cleared by cardiology Code(s): I50.9 - HEART FAILURE, UNSPECIFIED (2) Radiculopathy of lumbosacral region Assessment/Plan: -F/U with neurology outpatient- Dr Jimenez -EMG can be done as outpatient -trial of Methocarbamol -Continue tramadol 50 mg po Q8H PRN Code(s): M54.17 - RADICULOPATHY, LUMBOSACRAL REGION (3) Diabetes Assessment/Plan: -A1c at 8.4 -Diabetic diet -BGM ACHS -Continue levemir and Novolog sliding scale Code(s): E11.9 - TYPE 2 DIABETES MELLITUS WITHOUT COMPLICATIONS Qualifiers: Diabetes mellitus type: type 2 (4) Renal insufficiency Assessment/Plan: -Seen by Nephrology -F/U outpatient with nephrology Code(s): N28.9 - DISORDER OF KIDNEY AND URETER, UNSPECIFIED Assessment/Plan see problem list
[2018-01-05] MEDS ORDERED: METHOCARBAMOL 500 MG TABLET PO PRN (11:42)
[2018-01-05] MEDS ORDERED: METHOCARBAMOL 500 MG TABLET PO ONE (11:42)
[2018-01-05] MEDS ORDERED: INSULIN (NOVOLOG) ASPART 100 UNITS/ML 10ML VIAL ONE (11:46)
[2018-01-05 12:02] LABS: ANION GAP 10 MMOL/L (8-16); BLOOD UREA NITROGEN 32 mg/dL (7-18); CALCIUM 8.3 mg/dL (8.5-10.1); CHLORIDE 103 mmol/L (98-107); CO2 31 mmol/L (21-32); CREATININE 1.5 mg/dL (0.55-1.02); GLUCOSE,RANDOM 176 mg/dL (74-106); POTASSIUM 3.5 mmol/L (3.5-5.1); SODIUM 144 mmol/L (136-145)
[2018-01-05] MEDS ORDERED: INSULIN (LEVEMIR) 100 UNITS/ML UNITS SQ SCH (12:02)
--- NOTE | 2018-01-05 12:20 | PN ---
Progress Note (short form) - Note Progress Note: cc: sob, cp s: no cp, sob, orthopnea palps, dizzy, Current Medications Generic Name Dose Route Start Last Admin Trade Name Jose A PRN Reason Stop Dose Admin Amlodipine Besylate 10 mg 01/01/18 10:00 01/05/18 11:04 Norvasc - PO 10 mg DAILY [facility] Administration Atenolol 50 mg 01/01/18 10:00 01/05/18 11:05 Tenormin - PO 50 mg DAILY [facility] Administration Atorvastatin Calcium 20 mg 01/01/18 22:00 01/04/18 21:10 Lipitor - PO 20 mg HS [facility] Administration Furosemide 40 mg 01/01/18 10:00 01/05/18 11:04 Lasix Injection - IVPUSH 40 mg DAILY [facility] Administration Gabapentin 100 mg 01/04/18 14:00 01/05/18 06:31 Neurontin - PO 100 mg TID [facility] Administration Heparin Sodium (Porcine) 5,000 unit 01/01/18 06:15 01/05/18 06:31 Heparin - SQ 5,000 unit TID [facility] Administration Insulin Aspart 1 vial 01/01/18 07:00 01/05/18 11:38 Novolog Vial Sliding Scale - SQ 2 unit ACHS [facility] Administration Protocol Insulin Detemir 10 units 01/05/18 12:02 Levemir Vial SQ AM [facility] Losartan Potassium 50 mg 01/01/18 10:00 01/05/18 11:04 Cozaar - PO 50 mg DAILY [facility] Administration Methocarbamol 500 mg 01/05/18 11:42 Robaxin - PO TID PRN MUSCLE SPASMS Pantoprazole Sodium 40 mg 01/01/18 10:00 01/05/18 11:04 Protonix - PO 40 mg DAILY [facility] Administration Physical Exam Vital Signs Period Temp Pulse Resp BP Sys/Herrera Pulse Ox Last 24 Hr 98.2 F-99.1 F 64-75 18-20 106-143/56-84 98-98 nad no jvd rrr s1s2 no mrg cta bl nl eff aaox3 no le e/c/c abd nt nd pos bs no jaundice diaphoresis CBC, BMP 01/03/18 05:30 01/05/18 10:55 EKG: Image Reviewed (01/01/2018 at 02:50 NSR at 69 with anteroseptal Qs.) echo 12/2017 nl LV size/function, no RWMA, EF 60-65%, mild to mod MR, mild TR, PASP >38mmHg, pleural effusion present mibi 12/2017 neg stress, small zone of anteroapical fixed defect c/w soft tissue attenuation, normal LV function pre and post stress CT chest small to mod bilateral pleural effusions, L>R tele: sr Assessment/Plan 82 yo female with HTN and DM now with chest pain and dyspnea Chest pain -trop neg x2, EKG with Q waves however no acute changes, unlikely ACS -echo nl function, no RWMA noted, no ischemia noted on stress test Dyspnea, acute diastolic CHF exac - Elevated BNP, tanika pleural effusions - has been getting IV lasix 40 mg daily, vol status improved, can change to lasix 40 po qd - nl EF on echo HTN - on home meds losartan, atenolol, amlodipine, continue HLD - on home statin cardiac rudolph stable for dc
--- NOTE | 2018-01-05 12:20 | DS ---
Physical Examination Vital Signs: Vital Signs Temperature 98.9 F 01/05/18 08:42 Pulse Rate 74 01/05/18 08:42 Respiratory Rate 18 01/05/18 08:42 Blood Pressure 106/56 01/05/18 08:42 O2 Sat by Pulse Oximetry (%) 98 01/05/18 08:39 Findings/Remarks: 82 y/o F w/ PMHx IDDM, HTN, HLD p/w SOB, DELAROSA, chest tightness and pleuritic pain x 1 day and LE edema x 1 week. Given duonebs, Lasix, Atrovent in ED. CXR c/ w fluid overload. EKG non-concerning for ACS. Additionally complains of back pain centered at L5/S1 radiating circumferentially. Denies fever, chills, nausea , vomit, diarrhea and constipation. Denies dysuria, frequency, urgency and hematuria. Constitutional: Yes: Well Nourished, No Distress, Calm Cardiovascular: Yes: Regular Rate and Rhythm Respiratory: Yes: Regular Gastrointestinal: Yes: Normal Bowel Sounds, Soft Musculoskeletal: Yes: Back Pain Extremities: Yes: WNL Edema: No Peripheral Pulses WNL: Yes Neurological: Yes: Alert, Oriented Psychiatric: Yes: Alert, Oriented Labs: CBC, BMP 01/03/18 05:30 01/05/18 10:55 Discharge Summary Reason For Visit: SHORTNESS OF BREATH/HYPERVOLEMIA Current Active Problems CHF (congestive heart failure) (Acute) Fluid overload (Acute) Radiculopathy of lumbosacral region (Acute) Shortness of breath (Acute) Condition: Stable - Instructions Diet, Activity, Other Instructions: Follow up with 1. Delbert Rivera MD-Cardiology 2. Cresencio Mcdaniel MD-Nephrology 3. PCP-Adithya Vogel MD 4. Janette Jimenez MD-Neurology All within next 2-3 weeks. Their contact numbers are on the first page. Take Furosemide 40 mg 1 tab daily Tramadol 50 mg 2 x day as needed for pain Methocarbamol 500 mg 3 x day as needed for back pain or muscle spasms in the back Above medications sent to your pharmacy Referrals: Delbert Rivera MD [Staff Physician] - Janette Jimenez MD [Staff Physician] - Adithya Vogel MD [Staff Physician] - ON STAFF,NOT [Primary Care Provider] - Cresencio Mcdaniel MD [Staff Physician] - Disposition: VNS/HOME HEALTH CARE - Home Medications Comprehensive Discharge Medication List: Ambulatory Orders Insulin (LOG) Aspart [NovoLOG -] 0 unit SQ DAILY 10/03/16 Atorvastatin Ca [Lipitor] 20 mg PO HS #30 tablet MDD 1 10/05/16 Bacitracin - [Bacitracin Topical Ointment -] 1 applic TP DAILY #1 tube MDD 1 Insulin (Levemir) [Levemir Vial] 15 units SQ AM #100 ml MDD 15 unit 10/05/16 Amlodipine Besylate [Norvasc -] 10 mg PO DAILY 10/04/17 Atenolol [Tenormin] 50 mg PO DAILY 10/07/17 Losartan Potassium [Cozaar -] 50 mg PO DAILY 10/07/17 Pantoprazole Sodium 40 mg PO DAILY 10/07/17 Tramadol HCl [Ultram] 50 mg PO HS PRN 10/07/17
--- NOTE | 2018-01-05 16:16 | PN ---
Progress Note (short form) - Note Progress Note: Renal follow up for ADRIEN Pt seen and examined at the bedside awake and alert complains of lower back pain sob middy improved no cp, abd pain, N/V/D Vital Signs Temperature 98.9 F 01/05/18 08:42 Pulse Rate 74 01/05/18 08:42 Respiratory Rate 18 01/05/18 08:42 Blood Pressure 106/56 01/05/18 08:42 O2 Sat by Pulse Oximetry (%) 98 01/05/18 08:39 Intake & Output 01/02/18 01/03/18 01/04/18 01/05/18 23:59 23:59 23:59 23:59 Intake Total 978 623 1449 460 Balance 006 462 2660 460 Weight 74.843 kg 75.387 kg NAD awake and alert MMM, No JVD RRR CTA soft NT/ND no LE edema CBC, BMP 01/03/18 05:30 01/05/18 10:55 Current Medications Amlodipine Besylate (Norvasc -) 10 mg PO DAILY [facility] Last Admin: 01/05/18 11:04 Dose: 10 mg Atenolol (Tenormin -) 50 mg PO DAILY [facility] Last Admin: 01/05/18 11:05 Dose: 50 mg Atorvastatin Calcium (Lipitor -) 20 mg PO HS [facility] Last Admin: 01/04/18 21:10 Dose: 20 mg Furosemide (Lasix -) 40 mg PO DAILY [facility] Gabapentin (Neurontin -) 100 mg PO TID [facility] Last Admin: 01/05/18 13:19 Dose: 100 mg Heparin Sodium (Porcine) (Heparin -) 5,000 unit SQ TID [facility] Last Admin: 01/05/18 13:19 Dose: 5,000 unit Insulin Aspart (Novolog Vial Sliding Scale -) 1 vial SQ ACHS [facility]; Protocol Last Admin: 01/05/18 11:38 Dose: 2 unit Insulin Detemir (Levemir Vial) 10 units SQ AM [facility] Last Admin: 01/05/18 13:17 Dose: 10 units Losartan Potassium (Cozaar -) 50 mg PO DAILY [facility] Last Admin: 01/05/18 11:04 Dose: 50 mg Methocarbamol (Robaxin -) 500 mg PO TID PRN PRN Reason: MUSCLE SPASMS Pantoprazole Sodium (Protonix -) 40 mg PO DAILY [facility] Last Admin: 01/05/18 11:04 Dose: 40 mg 82 year old woman with hx of Hypertension and DM who presented with CP and SOB and admitted for R/o ACS and CHF exacerbation and found to have elevated Cr. #ADRIEN vs CKD #Proteinuria in setting of long standing DM #CHF #Chest pain r/o ACS #Right hip pain #DM Renal function stable thus far this admission Urine studies show nephrotic range proteinuria likely due to diabetic nephropathy will need outpatient work up for alternative causes of proteinuria CHF symptoms improved titrate diuretics as per cardiology pain control PT as needed no fractures seen on imaging studies of hip and LE Cresencio Jonas MAC
--- NOTE | 2018-01-05 17:41 | CONS ---
DATE OF CONSULTATION AND ELECTRODIAGNOSTIC STUDIES: 01/05/2018 PHYSICAL MEDICINE REHABILITATION CONSULTATION AND ELECTRODIAGNOSTIC CONSULTATION REFERRING PHYSICIAN: Natalee Jo M.D. HISTORY OF PRESENT ILLNESS: The patient is an 82-year-old woman with past medical history of hypertension and insulin dependent diabetes who was referred for electrodiagnostic evaluation of the lower extremities with complaints of back pain radiating to the right lower extremity. Patient states she has fallen at home without any injury and has had chronic back problems for some time. She was brought to the emergency room with shortness of breath but also complained of back pain radiating to the right lower extremity, and underwent x-rays of the lumbar spine which were reviewed and showed extensive arthritic changes in the lumbar spine with patent SI joint and intact paraspinal soft tissues. There was some straightening with degenerative changes in wedging with vacuum phenomena noted. Patient has been seen by physical therapy. She also has undergone cardiac workup on admission. She had 2 troponins which were negative. She underwent a MUGA scan which was negative. Echocardiogram which showed normal left ventricular ejection fraction. Her BNP was elevated on admission at 2376 and repeat was 1480. She also has elevated BUN 31, creatinine 1.5 on admission which is stable on the last blood work taken. Her CBC showed normal WBCs on admission, 6.7, hemoglobin 11.3, platelet count 178. Repeat on January 03 was stable. Her albumin is low at 2.4. Patient again was mobilized, able to ambulate 130 feet with a rolling walker, light contact guard. Per the therapist she was tearful but not really complaining of pain when up and ambulatory. Patient states she also gets coldness in her feet and has been diabetic for many years, currently on insulin. PAST MEDICAL AND SURGICAL HISTORY: Significant for hyperlipidemia, hypertension, insulin dependent diabetes, chronic back pain. SOCIAL HISTORY: Lives in an apartment with an elevator for access. Premorbidly she states she could ambulate without assistive device but has a cane and also has a walker from a prior injury, current function as above. REVIEW OF SYSTEMS: No lightheadedness, dizziness. No blurry vision, double vision. No nausea, vomiting, difficulty swallowing, difficulty chewing. No chest pain, shortness of breath. No fever or chills. She does get swelling in the lower extremities. No bowel/bladder incontinence. She gets back pain radiating into the right lower extremity, numbness or coldness in her feet at night, but no complaints of numbness, tingling in the upper extremities. PHYSICAL EXAMINATION: GENERAL: Patient is overweight woman seen both sitting as well as standing and taking a few steps. She is in no acute distress. HEENT: Normocephalic and atraumatic. Extraocular muscles appear intact. NECK: Supple. EXTREMITIES: Shops some edema trace to +1 but no isolated calf tenderness. SKIN: Without any rash. NEUROMUSCULAR: She is awake, alert, oriented x3. Cranial nerves 2-12 grossly intact. Good motor power in the upper extremities. Some arthritic changes in the hands, but at least 4 to 4+/5 strength, normal sensation to light touch, pinprick. In the lower extremities she has diminished cool temperature and pinprick in both lower extremities distally, also some weakness in the right dorsiflexors, hip abductors, and knee flexors, grossly 4/5, better strength on the left side as well as bilateral quadriceps and plantar flexors. Absent ankle jerk reflexes, depressed knee jerk reflexes. She is able to stand with some assistance and take a few steps from a wheelchair to a mat and perform some bed mobility. For results of EMG nerve conduction studies, please refer to report for details. OVERALL IMPRESSION: 1. Right L5 radiculopathy. 2. 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 3. Gait disorder. 4. Degenerative spondylosis of the lumbar spine. 5. Congestive heart failure. 6. Elevated body mass index. 7. Acute versus chronic kidney disease. 8. History of hypertension. 9. Elevated risk for decubitus ulceration. 10. Elevated risk for deep venous thrombosis due to immobility. PLAN AND SUGGESTION: 1. Consider trial of gabapentin. 2. Physical therapy either outpatient or via homecare. 3. Consider further imaging of the lumbar spine including MRI if not contraindicated of claustrophobic. 4. Weight reduction as able. 5. Edema control. 6. Follow up with cardiology. Thank you very much for this referral. BILL AQUINO M.D. [id number]
[2018-01-06] MEDS ORDERED: FUROSEMIDE 40 MG TABLET (FP) PO SCH (10:00)
== END 2018-01-05 20:20 | disposition home health service (06) | DRG 292 ==
LOC: JER 02:34 → JERBED 05:10 → J4W 01-02 19:16
PROVIDERS: ADMIT Family Medicine; ATTEND Family Medicine
DX: I11.0 Hypertensive heart disease with heart failure (principal); N17.9 Acute kidney failure, unspecified; I50.31 Acute diastolic (congestive) heart failure; R07.9 Chest pain, unspecified; E87.70 Fluid overload, unspecified; M54.17 Radiculopathy, lumbosacral region; E78.5 Hyperlipidemia, unspecified; E11.21 Type 2 diabetes mellitus with diabetic nephropathy; N18.9 Chronic kidney disease, unspecified; M25.551 Pain in right hip; Z79.4 Long term (current) use of insulin
CPT/HCPCS: 36415; 71045-TC-FY; 71250-TC; 72100-TC-FY; 73502-TC-RT; 73552-TC-RT-FY; 76775-TC; 76856-TC; 78452-TC; 80048; 80053; 80061; 81003; 81015; 82550; 82570; 82962; 83036; 83721; 83735; 83880; 84100; 84156; 84484; 84540; 85025; 85027; 85610; 85730; 86850; 86900; 86901; 87086; 93005; 93010; 93017; 93306-TC; 93970-TC; 95860-TC; 97116-GP; 97161-GP; 99285-25; A9502; J1644; J2785